=== PATIENT | female | born 1995 | race Caucasian/White ===

== ENCOUNTER → 2017-08-20 06:59 | Outpatient (CLI) | payer OTHER, SELFPAY | PROVIDERS: Visit Provider Obstetrics & Gynecology | DX: Z12.4 Encounter for screening for malignant neoplasm of cervix (principal) ==

== ENCOUNTER → 2019-04-17 13:29 | Outpatient (CLI) | payer OTHER, SELFPAY | PROVIDERS: Visit Provider Obstetrics & Gynecology | DX: Z12.4 Encounter for screening for malignant neoplasm of cervix (principal); Z11.3 Encounter for screening for infections with a predominantly sexual mode of transmission ==

== ENCOUNTER 2020-09-16 16:28 | Emergency (ER) | payer OTHER, SELFPAY ==
[2020-09-16 16:30] VITALS: BP 140/74; PULSE 89; RESP 17; TEMP 36.8; O2SAT 98; BMI 22.4
--- NOTE | 2020-09-16 16:55 | ED.DCSUM_ITS ---
History of Present Illness Chief Complaint: GI Bleed Informant: Patient - Abdominal Pain/Flank Pain Onset: Today Context: Sudden Onset Timing: Intermittent Quality: Cramping Location: - - across lower abd, intermittent x years Current Severity: Mild Maximum Severity: Moderate Worsened by: Nothing Relieved by: Nothing - Nausea/Vomiting/Emesis GI Symptom: Negative for: Nausea, Vomiting - Diarrhea/Melena/Hematochezia GI Symptom: Diarrhea - Chronic, every other day or so, Hematochezia - Off and on chronically, much more than usual today. Negative for: Melena Associated Symptoms: Negative for: Dysuria, Frequency, Hematuria, Urgency Narrative: Patient is a 25-year-old healthy female presenting with intermittent lower abdominal pain, rectal bleeding with loose bowel movements, tenesmus, and she has never had any of this evaluated. She thinks she has had this for over 10 years. She has never had a colonoscopy. She thought that the tenesmus symptoms were just her normal. She has a bowel movement every couple of days, they are irregular but she does not have multiple episodes of diarrhea per day. She denies any melena, nausea, vomiting, fevers. She denies any lightheadedness or acute weakness today or any other systemic symptoms. She does not have a PCP and states she tries to avoid going to the doctor. Past Medical History - Allergies and Home Meds Allergies/Adverse Reactions: Allergies No Known Allergies Allergy (Verified 09/16/20 16:29) Primary Care Physician: Care Physician,No Primary [Primary Care Provider] - Past Medical History: None Smoking Status: Current every day smoker Review of Systems General: Denies: Chills, Fever, Sweats Eyes: Denies: Visual changes - bilaterally, Diplopia ENT: Denies: Rhinorrhea, Sore throat Cardiovascular: Denies: Chest pain, Palpitations Respiratory: Denies: Dyspnea, Cough, Dyspnea on exertion Gastrointestinal: Reports: Abdominal pain, Diarrhea, Hematochezia. Denies: Nausea, Vomiting, Melena Genitourinary: Denies: Dysuria, Hematuria, Frequency Musculoskeletal: Denies: Back pain, Swelling, Extremity Pain Skin: Denies: Rash, Wounds Neurological: Denies: Headache, Weakness, Numbness Physical Exam Vital Signs/Narrative: Vital Signs Temp Pulse Resp BP Pulse Ox 09/16/20 16:30 98.2 F 89 17 140/74 H 98 Inital Vital Signs reviewed: Yes General: Well nourished, Well developed, No Acute Distress Head: Normocephalic, Atraumatic Eyes: Perrl, EOMI ENT: Moist mucous membranes, No rhinorrhea Neck: Supple, Nontender Cardiovascular: Regular rate, Regular rhythm, No murmurs. Negative for: Tachycardia Respiratory: No distress, CTA bilaterally, Chest nontender Abdomen: Soft, Nondistended, Normal bowel sounds, Tender - Mild both lower quadrants and periumbilical area. Negative for: Guarding, Rebound tenderness, Ventral hernia, Umbilical hernia Back: Nontender, Normal Inspection. Negative for: CVA tenderness Extremities: Nontender, No edema. Negative for: Calf Tenderness Skin: Normal color, No rash, No Trauma Neurological: Alert, Oriented x3, Cranial nerves II-XII grossly intact, Normal Strength, Normal Sensation Psychological: Normal affect, Normal Mood Diagnostic/Tx/Re-eval Laboratory Results 09/16/20 09/16/20 09/16/20 16:30 16:30 17:10 WBC 10.1 RBC 4.34 Hgb 12.9 Hct 40.1 MCV 92.4 MCH 29.7 MCHC 32.2 RDW Std Deviation 45.2 H RDW Coeff of Shania 13.2 Plt Count 351 MPV 9.4 Immature Gran % (Auto) 0.400 Neut % (Auto) 56.5 Lymph % (Auto) 30.6 Emmons % (Auto) 8.3 Eos % (Auto) 3.4 Baso % (Auto) 0.8 Absolute Neuts (auto) 5.7 Absolute Lymphs (auto) 3.08 Nucleated RBC % 0 Sodium 139 Potassium 3.7 Chloride 109 H Carbon Dioxide 23.0 Anion Gap 7 BUN 12 Creatinine 0.66 Estim Creat Clear Calc 123.04 Est GFR (MDRD) Af Amer 141 Est GFR (MDRD) Non-Af 116 BUN/Creatinine Ratio 18.1 Glucose 92 Calcium 8.9 Total Bilirubin 0.40 AST 20 ALT 29 Alkaline Phosphatase 93 Total Protein 7.4 Albumin 3.9 Globulin 3.5 Albumin/Globulin Ratio 1.1 Urine Color Yellow Urine Clarity Clear Urine pH 6.5 Ur Specific [place] 1.010 Urine Protein Negative Urine Glucose (UA) Normal Urine Ketones Negative Urine Occult Blood 50 H Urine Nitrite Negative Urine Bilirubin Negative Urine Urobilinogen Normal Ur Leukocyte Esterase Negative Urine RBC 0-5 SEEN Urine WBC 0 SEEN Ur Squamous Epith Cells 0-5 SEEN Urine Bacteria 0 SEEN Urine Mucus 0 SEEN Urine Test Negative - Medical Decision Making Work-up is unremarkable including liver enzymes. Patient was given an oral dicyclomine, which did help her cramping. She said it was not severe to begin with, but she does feel better. Her history is consistent with colitis. I discussed my concerns with her, and the lack of need for imaging at this time since it will likely just show nonspecific signs of colitis. Since her symptoms are chronic and she does not have a leukocytosis, I do not think we need to scan her to look for diverticulitis at this time. I think she needs close outpatient follow-up and a colonoscopy, prior to starting her on any medications to control this so that she gets a clear diagnosis. We discussed Crohn's disease being in the differential diagnosis as well as other functional GI diagnoses, but ulcerative colitis would be the most likely etiology. We discussed reasons to return, and she will follow-up with surgery for the possibility of endoscopy as well as the next doctor on the unassigned list, Dr. Sagastume. ED Disposition - Plan for ED Patient: Disposition: Home or Assisted Living Diagnosis: Colitis Instructions: ED Ulcerative Colitis Prescriptions: Dicyclomine HCl 20 mg PO Q4H PRN #20 tab PRN Reason: abdominal cramping Transmission Status: Pending to [facility] Referrals: Nain Sagastume MD [NON-STAFF] - As soon as possible Rayne Kelley MD [STAFF PHYSICIAN] - As soon as possible
[2020-09-16 17:15] LABS: Absolute Lymphocyte Count 3.08 X10^3/uL (0.83-4.51); Absolute Neutrophil Count 5.7 X10^3/uL (2.0-7.7); Basophil# 0.08 X10^3/uL; Basophil% 0.8 % (0-1); Eosinophil# 0.34 X10^3/uL; Eosinophils% 3.4 % (0-5); Hematocrit 40.1 % (37-47); Hemoglobin 12.9 g/dL (12.0-15.0); Lymphocyte # 3.08 X10^3/ul (4.0); Lymphocyte % 30.6 % (19-41); Mean Corp Hgb Conc 32.2 g/dL (32-36); Mean Corpuscular Hgb 29.7 pg (27.0-32.0); Mean Corpuscular Volume 92.4 fL (81-99); Mean Platelet Vol. 9.4 fl (6.2-12.0); Monocyte# 0.84 X10^3/uL; Monocyte% 8.3 % (0-10); NRBC Flagged by Analyzer 0 % (0-5); Neutrophil # 5.69 X10^3/uL (2.7-7.7); Neutrophil % 56.5 % (47-70); Platelet Count 351 K/mm3 (150-450); RBC Distribution Width CV 13.2 % (11.6-14.6); RBC Distribution Width SD 45.2 fl (35.1-43.9); Red Blood Count 4.34 M/mm3 (4.2-5.4); White Blood Count 10.1 K/mm3 (4.4-11.0)
[2020-09-16 17:15] LABS: Bacteria 0 SEEN /hpf (None Seen); Mucous, Urine 0 SEEN /hpf (<or=2+); White Blood Cells 0 SEEN /hpf (0-5)
[2020-09-16 17:20] LABS: Color, Urine Yellow (Yellow); Glucose, Dipstick Normal (Normal); Ketone-Dipstick Negative (Negative); Leukocyte Esterase-Dipstick Negative /ul (Negative); Nitrite-Dipstick Negative (Negative); Occult Blood-Urine 50 /ul (Negative); Protein-Dipstick Negative (Negative); Urine Bilirubin Dipstick Negative (Negative); Urine Clarity Clear (Clear); Urine Urobilinogen Normal (Normal); Urine pH 6.5 (5.0 - 8.0)
[2020-09-16] MEDS: Dicyclomine 10 MG Capsule 20 MG PO (17:20)
[2020-09-16 17:21] VITALS: BP 101/58; BP 108/64; BP 114/69; PULSE 77; PULSE 85
[2020-09-16 17:27] LABS: Red Blood Cells-Urine 0-5 SEEN /hpf (0-5); Squamous Epithelial Cells - UA 0-5 SEEN /hpf (5-10)
[2020-09-16 17:28] LABS: ALB/GLOB Ratio 1.1 RATIO (0.9-2.4); AST(SGOT) 20 U/L (15-37); Alanine Aminotransfer ALT/SGPT 29 U/L (13-56); Albumin, Serum 3.9 g/dL (3.2-5.0); Alkaline Phosphatase 93 U/L (45-117); Anion Gap 7 (5-15); BUN 12 mg/dL (7-18); BUN/Creat Ratio 18.1 RATIO (10-20); Calcium,Total 8.9 mg/dL (8.5-10.1); Chloride 109 mmol/L (98-107); Creatinine, Serum 0.66 mg/dL (0.55-1.02); EST Glomerular Filtration Rate 116 mL/min (>60); Est Glom Filt Rate - Afr Amer 141 mL/min (>60); Estimated Creatinine Clearance 123.04 ml/min; Globulin 3.5 g/dL (2.2-4.2); Glucose 92 mg/dL (74-106); Potassium 3.7 mmol/L (3.5-5.1); Protein, Total 7.4 g/dL (6.4-8.2); Sodium Level 139 mmol/L (136-145)
[2020-09-16 17:28] LABS: Internal QC Validated? YES +Cl - CLEAR BKGD; Pregnancy, Urine Negative Negative
[2020-09-16 18:30] VITALS: BP 113/65; PULSE 57; RESP 16; O2SAT 98
[2020-09-16 18:59] VITALS: RESP 18
== END 2020-09-16 18:59 | disposition home or self-care (01) ==
PROVIDERS: Emergency Provider Emergency Medicine
DX: K52.9 Noninfective gastroenteritis and colitis, unspecified (principal); F17.200 Nicotine dependence, unspecified, uncomplicated
CPT/HCPCS: 80053; 81001; 81025; 85025; 99284; A4216

== ENCOUNTER 2021-02-18 08:13 | Emergency (ER) | payer OTHER, SELFPAY ==
[2021-02-18 08:13] VITALS: BP 141/91; PULSE 108; RESP 16; TEMP 36.4; O2SAT 97; BMI 22.1
--- NOTE | 2021-02-18 08:22 | RAD_ITS ---
EXAM DESCRIPTION: PORTABLE AP CHEST CLINICAL HISTORY: 25 years Female, COUGH COUGH COMPARISON: None FINDINGS: The thorax is intact. The heart and mediastinum appear to be within normal limits. The lungs appear to be well areated without evidence of pneumonic consolidation or pleural effusion. RAD/Chest 1 View (Portable) IMPRESSION: Normal portable chest. Electronically Signed: Osmar Katz DO at 9:13 EDT Tel , Service support ,
[2021-02-18 08:26] VITALS: O2SAT 97
--- NOTE | 2021-02-18 09:07 | EX.ED.VIS.UR ---
HPI HPI - URI History of Present Illness Chief Complaint: Shortness of Breath Informant: patient Onset/Context/Timing Onset: Yesterday Context: Gradual Onset Timing: Continuous Quality: cough, wheezing Location: chest Current Severity: Moderate Maximum Severity: Moderate Worsened by: - (coughing) Relieved by: - (nothing) Associated Symptoms Associated Symptoms: Positive for Nasal Congestion, Chest Pain (tightness) and Productive Cough (green sputum); Negative for Headache, Nausea, Vomiting, Diarrhea and Hemoptysis Narrative Narrative: Productive cough, chest tightness, wheezing since yesterday. No history of asthma that she knows of. No leg edema. No syncope, palpitations. No leg pain or swelling recently or history of DVT or PE. No fevers or chills. No known contact with Covid positive patient. ROS ROS ED Constitutional Constitutional ED: Denies chills or fever(s) Eyes Eyes: Denies change in vision or diplopia ENT ENT ED: Reports nasal congestion and rhinorrhea; Denies sore throat Cardiovascular Cardiovascular: Reports as per HPI and chest pain; Denies palpitations Respiratory/Chest Respiratory/Chest: Reports cough, dyspnea, sputum and wheezing Gastrointestinal Gastrointestinal: Denies abdominal pain, diarrhea, nausea or vomiting Genitourinary Genitourinary ED: Denies dysuria or hematuria Musculoskeletal Musculoskeletal: Denies back pain or neck pain Integumentary Denies abscess or rash Neurologic Neurologic: Denies headache(s), paresthesias or weakness Psychiatric Psychiatric: Denies anxiety or suicidal thoughts PFSH PFSH no medical history Home Medications etonogestrel-ethinyl estradiol 1 ea VG 09/16/20 [History Last Taken Unknown] albuterol sulfate [Ventolin HFA] 1 - 2 puff INHALATION Q4H PRN PRN #1 inhaler 02/18/21 [Rx Last Taken Unknown] benzonatate 200 mg PO TID PRN PRN #20 capsule 02/18/21 [Rx Last Taken Unknown] Allergy/AdvReac Type Severity Reaction Status Date / Time No Known Allergies Allergy Verified 02/18/21 08:13 Social History Smoking Status: Current every day smoker tobacco type: cigarettes EXAM Physical Exam Const Vital Signs: 02/18/21 08:13 02/18/21 08:26 02/18/21 09:20 Temperature 97.6 F L Temperature Source Temporal Pulse Rate 108 H 89 Respiratory Rate 16 20 H Respiratory Effort Normal Non-Labored Respiratory Depth Normal Respiratory Pattern Normal Normal Blood Pressure 141/91 H Blood Pressure Mean 107 Pulse Ox 97 Oxygen Delivery Method Room Air Room Air Positive well nourished and well developed General Appearance ED: well developed and NAD HEENT Reports moist mucous membranes normocephalic and atraumatic Throat: posterior oropharynx normal Eyes PERRL and EOMs intact bilaterally Neck full ROM and supple Resp normal respiratory effort Auscultation: wheezes expiratory wheezes and throughout Cardio regular rate, regular rhythm and no murmurs Back/Spine no CVA tenderness General Back: other FROM Extremity normal to inspection General Extremety ED: Negative for edema, pulses abnormal or tenderness General Extremity: Negative for edema or pulses abnormal Neuro oriented x3, CN's II-XII intact bilaterally and no sensory deficits noted Sensorium / Orientation: awake and alert Motor Exam: strength 5/5 throughout Skin no rashes or lesions noted and no wounds Lesions: no lesions Rashes: no rashes MDM MDM MDM Narrative Medical decision making narrative: Chest x-ray and Covid rapid are negative/normal. Patient is wheezing diffusely, likely bronchitis with wheezing in context. Her pulse ox is normal and she is breathing well and speaking in full sentences. Given nebulizer treatments as well as a prescription for an MDI. She was improved prior to discharge. No prednisone or antibiotics indicated at this time. Lab Data Attestation: I reviewed the patient's lab results. Radiography Diagnostic Testing: Radiology Impression Chest X-Ray 02/18/21 08:22 IMPRESSION: Normal portable chest. Electronically Signed: Osmar Katz DO at 9:13 EDT Tel , Service support , On my interpretation 1 view chest x-ray normal. Discharge Plan Triage Chief Complaint: Shortness of Breath ED Provider: Elton Prajapati Dx/Rx/DC Orders Clinical Impression: Acute wheezy bronchitis Instructions: ED Bronchitis with Wheezing (Adult) Prescriptions: New benzonatate [benzonatate] 100 MG capsule 200 mg PO TID PRN PRN (Reason: Cough) Qty: 20 RF: 0 albuterol sulfate [Ventolin HFA] 1 INHALER inhaler 1 - 2 puff inhalation Q4H PRN PRN (Reason: Wheezing) Qty: 1 RF: 0 No Action etonogestrel-ethinyl estradiol 1 EACH ring 1 ea VG RF: 0 Stand Alone Forms: ED Work / School Excuse Primary Care Provider: Care Physician,No Primary Referrals: Angelina Ibarra [NON-STAFF] - 10-14 Days if not better Care Physician,No Primary [Primary Care Provider] - Disposition Disposition: Home, Self Care
[2021-02-18 09:20] VITALS: PULSE 89; RESP 20
[2021-02-18] MEDS: Ipratropium/Albuterol Sulfate 3 ML AMPUL.NEB INHALATION (09:20)
[2021-02-18] MEDS: Albuterol 2.5 MG/3 ML VIAL.NEB. INHALATION (09:20)
== END 2021-02-18 11:02 | disposition home or self-care (01) ==
PROVIDERS: Emergency Provider Emergency Medicine
DX: J20.9 Acute bronchitis, unspecified (principal); F17.210 Nicotine dependence, cigarettes, uncomplicated
CPT/HCPCS: 71045; 87426; 94640; 99282

== ENCOUNTER → 2021-06-08 15:23 | Outpatient (CLI) | payer OTHER, SELFPAY ==
[2021-06-13 00:06] LABS: Chlamydia By Nucleic Acid AMP Negative (Negative)
[2021-06-13 13:44] LABS: Gonococcus By Nucleic Acid AMP Negative (Negative)
== END ==
PROVIDERS: Visit Provider Obstetrics & Gynecology
DX: Z11.3 Encounter for screening for infections with a predominantly sexual mode of transmission (principal)
CPT/HCPCS: 87491; 87591

== ENCOUNTER 2022-06-14 11:20 | Outpatient (CLI) | payer OTHER, SELFPAY ==
[2022-06-16 04:07] LABS: Chlamydia By Nucleic Acid AMP Negative (Negative)
[2022-06-16 10:36] LABS: Gonococcus By Nucleic Acid AMP Negative (Negative)
[2022-06-20 20:59] LABS: HPV APTIMA, High Risk Negative (Negative)
== END 2022-06-14 23:59 | disposition home or self-care (01) ==
LOC: LABSPEC 11:22
PROVIDERS: Visit Provider Student in an Organized Health Care Education/Training Program
DX: Z11.3 Encounter for screening for infections with a predominantly sexual mode of transmission (principal); Z12.4 Encounter for screening for malignant neoplasm of cervix
CPT/HCPCS: 87491; 87591; 87624; 88175; G0145

== ENCOUNTER 2022-11-03 10:11 | Outpatient (CLI) | payer OTHER, SELFPAY ==
[2022-11-03 11:09] LABS: Erythrocyte Sedimentation Rate 2 mm/hr (0-30)
[2022-11-03 11:13] LABS: CRP 6.22 mg/L (0.0-3.0); LDH 208 U/L (84-246)
[2022-11-06 15:07] LABS: Endomysial Antibody IgA Negative (Negative); Immunoglobulin A 105 mg/dL (87-352); t-Transglutaminase IgA <2 U/mL (0-3)
[2022-11-07 17:08] LABS: Albumin 3.7 g/dL (2.9-4.4); Alpha-1-Globulins 0.2 g/dL (0.0-0.4); Alpha-2-Globulins 0.7 g/dL (0.4-1.0); Cytoplasmic Ab (C-ANCA) <1:20 titer (Neg:<1:20); Gamma Globulin 0.7 g/dL (0.4-1.8); Immunoglobulin A 110 mg/dL (87-352); Immunoglobulin E 229 IU/mL (6-495); Immunoglobulin G 806 mg/dL (586-1602); Immunoglobulin M 73 mg/dL (26-217); PROEL- TOTAL PROTEIN 6.5 g/dL (6.0-8.5); Perinuclear Ab (P-ANCA) <1:20 titer (Neg:<1:20)
[2022-11-08 09:09] LABS: Anti-Centromere B Ab <0.2 AI (0.0-0.9); Anti-Chromatin <0.2 AI (0.0-0.9); Anti-Jo <0.2 AI (0.0-0.9); Anti-Scleroderma-70 AB <0.2 AI (0.0-0.9); Anti-dsDNA Ab 3 IU/mL (0-9); Beef <0.10 kU/L (Class 0); Chocolate <0.10 kU/L (Class 0); Corn <0.10 kU/L (Class 0); Egg, Whole <0.10 kU/L (Class 0); Milk (Cow) <0.10 kU/L (Class 0); Peanut <0.10 kU/L (Class 0); Pork <0.10 kU/L (Class 0); RNP Ab <0.2 AI (0.0-0.9); SJOGREN'S Anti-SS-A test < 0.2 AI (0.0-0.9); SJOGREN'S Anti-SS-B test < 0.2 AI (0.0-0.9); Smith Ab <0.2 AI (0.0-0.9); Soybean <0.10 kU/L (Class 0); Wheat <0.10 kU/L (Class 0)
== END 2022-11-03 23:59 | disposition home or self-care (01) ==
LOC: LAB 10:13
PROVIDERS: PCP Nurse Practitioner Family; Referring Provider Internal Medicine Gastroenterology; Visit Provider Internal Medicine Gastroenterology
DX: K92.1 Melena (principal)
CPT/HCPCS: 36415; 82784; 82785; 83516; 83615; 84165; 85652; 86003; 86005; 86140; 86225; 86235; 86255; 86256; 86334

== ENCOUNTER 2022-11-15 13:21 | Outpatient (CLI) | payer OTHER, SELFPAY ==
[2022-11-21 15:08] LABS: Calprotectin, Stool 34 ug/g (0-120); Fats, Neutral Normal (.); Fats, Total Normal (.)
[2022-11-23 15:09] LABS: Pancreatic Elastase, Fecal 197 (>200)
== END 2022-11-15 23:59 | disposition home or self-care (01) ==
LOC: LAB 13:22
PROVIDERS: PCP Nurse Practitioner Family; Referring Provider Internal Medicine Gastroenterology; Visit Provider Internal Medicine Gastroenterology
DX: K58.9 Irritable bowel syndrome, unspecified (principal); K92.1 Melena
CPT/HCPCS: 82274; 82653; 82705; 83630; 83993; 87493; 87506

== ENCOUNTER 2023-01-11 06:19 | Day surgery (SDC) | payer OTHER, SELFPAY ==
[2023-01-11 06:41] LABS: Internal QC Validated? YES +Cl - CLEAR BKGD; Pregnancy, Urine Negative Negative
[2023-01-11] MEDS: Lactated Ringers 1,000 ML 15 ML IV (06:48)
[2023-01-11 06:49] VITALS: BP 123/86; PULSE 83; RESP 18; TEMP 36.6; O2SAT 98; BMI 24.3
--- NOTE | 2023-01-11 07:28 | HP.PCM_ITS ---
History and Physical Date of Admission: 01/11/23 27 F who presents to the office today for PCP OV 1 with Constipation was a difficulty as a child; but for the last several years she has had urgent loose stools with blood and mucus with urgency related incontinence. ? Biochemical ferritin, iron, TSH, CMP, LFT, CBC ? TIBC H470, transferrin sat L12 *BGI established 4.. she has been having difficulty with postprandial urgent loose stools with blood and abdominal pain for the last several years. Reports LLQ US at OSH which was reported as normal. Additional difficulty with acid reflux/heartburn; started on iron replacement, dicyclomine and PPI, these have been helpful with urgency and reflux. 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 ROS Const Constitutional: No anorexia, fatigue, fever(s), weight change or sleep problems Eyes Eyes: No change in vision ENT ENT: No abnormal hearing, difficulty swallowing, mouth lesions, tongue swelling or throat swelling Resp Respiratory: No cough or shortness of breath Cardio Cardiology: No chest pain at rest, chest pain with exertion, shortness of breath or dyspnea on exertion Gastro GI: No difficulty swallowing Genitourinary-Female: No difficulty urinating or burning urination Musc Musculoskeletal: No joint pain, joint swelling, muscle weakness or decreased muscle mass Skin Skin: No hair loss in leg, yellowing of the eye, itchy eyes, rash, skin ulcer or skin swelling Neuro Neurology: No abnormal hearing, abnormal movements, confusion, unsteady gait/balance or memory loss Psych Psychiatric: No anxiety, No confusion and No memory loss Endo Endocrine: No fatigue or weight change Aller/Imm Allergy/Immunologic: No itchy eyes, throat swelling or tongue swelling Nima/Lymp Hematologic/Lymphatic: No easy bleeding, easy bruising or enlarged lymph nodes Exam Const General: cooperative and comfortable Nutritional Appearance: average body habitus and well nourished [facility] Head: normal to inspection Ears: hearing grossly normal bilaterally Nose: external nose normal Face and sinus: normal facial exam Mouth: oral mucosae normal Throat: posterior oropharynx normal Eyes General: appearance normal, both eyes and all related structures Neck Neck: normal visual inspection Chest Chest palpation & inspection: normal inspection of the chest and normal palpation of entire chest wall Resp Effort & Inspection: normal respiratory effort Auscultation: Bilateral: Clear to Auscultation Cardio Palpation: normal PMI Rate: regular rate Rhythm: regular rhythm GI Inspection: normal to inspection Auscultation: normal bowel sounds Percussion: normal to percussion Palpation: no hepatosplenomegaly Skin General: no rashes or lesions noted Neuro General: patient alert Extrem General: normal to inspection Psych Affect: normal affect Quality Reporting Tobacco Screening ([facility]) Smoking Status: Current every day smoker Assessment and Plan Assessment and Plan (1) Hematochezia: Status: Chronic Plan: The differential diagnosis for her symptoms at this time does include inflammatory bowel disease, IBS with diarrhea, small bacterial overgrowth, celiac disease, anal fissure secondary to multiple bowel movements, less likely pancreatic insufficiency. She will undergo biochemical testing along with stool testing. She will undergo food allergy testing. She will also undergo an EGD and colonoscopy for evaluation of upper or lower GI tract biopsies for diseases such as eosinophilic gastroenteritis and microscopic colitis. Orders: Orders CRP Today K92.1 - Melena Erythrocyte Sed Rate Today K92.1 - Melena ANCA Today K92.1 - Melena Celiac Disease Profile Today K92.1 - Melena LDH Today K92.1 - Melena Allergen, Rast Food Profile Today K92.1 - Melena AIDA Comprehensive Panel Today K92.1 - Melena Calprotectin, Stool Today K92.1 - Melena Stool Lactoferrin/WBC Today K58.9 - Irritable bowel syndrome without diarrhea, K92.1 - Melena Immunoglobulin A Today K92.1 - Melena Immunoglobulin E Today K92.1 - Melena SHALINI + Protein Elect, Serum Today K92.1 - Melena Immunoglobulin G Today K92.1 - Melena Immunoglobulin M Today K92.1 - Melena Pancreatic Elastase, Fecal Today K92.1 - Melena Fecal Fat, Qualitative Today K92.1 - Melena OVA+PARA w/Giardia EIA [id number] Today K92.1 - Melena CDIFF (PCR) Today K92.1 - Melena ENTERIC PATHOGEN PANEL STOOL Today K58.9 - Irritable bowel syndrome without diarrhea, K92.1 - Melena Stool Occult Blood iFOB Today K92.1 - Melena I have examined the patient and the H&P has been reviewed. There are no clinical changes since date of exam.
--- NOTE | 2023-01-11 07:30 | IMM_PTH ---
PATIENT: RONAL MCLAIN LOC: EN U#:[id number] AGE/SX: 27/F ROOM: RE01/11/[address]: Dr. Quique Reynolds DO : 1995 BED: DIS: 01/11/2023 SPEC #: [id number] RECD: 01/11/23 12:49 STATUS: LATONIA REErin #: [id number] LAILA: 01/11/23 07:[address]: Quique Reynolds DEPT: IMMUNOHISTOCHEMISTRY RECD BY: Michelle Hernandez ENTERED: 01/11/23 12:50 SP TYPE: IMMUNO OTHR DR: Temi Rice, PIO Tissues: B - Stomach, NOS Procedures: H Pylori (initial) PHYSICIAN & INSTITUTION [place] [id number] SPECIMEN INFORMATION: Tissue Source: B - Antrum biopsy Clinical Info: Hematochezia Specimen Number: [id number] CPT code: 62836 METHODOLOGY: Deparaffinized sections of prefer/formalin-fixed tissue or PAP/DQ stained slides are incubated with monoclonal/polyclonal antibodies/oligonucleotide probes. Localization is made via biotin free immunoperoxidase method. Appropriate controls are performed and reacted as expected. Results on target cell population are indicated in the following table: RESULTS: ANTIBODY / CLONE RESULT Block B H Pylori (polyclonal) negative These tests were developed and their performance characteristics determined by [facility]. They may not have been cleared or approved by the U.S. Food and Drug Administration. The FDA has determined that such clearance or approval is not necessary. The above immunohistochemical/dualISH markers are ordered and reviewed by the Pathologist. INTERPRETATION: B. Antrum, biopsy: Negative for Helicobacter pylori organisms. ALESSIA:josh 01/12/2023
--- NOTE | 2023-01-11 07:30 | EGD_PTH ---
PATIENT: RONAL MCLAIN LOC: EN U#:[id number] AGE/SX: 27/F ROOM: RE01/11/[address]: Dr. Quique Reynolds DO : 1995 BED: DIS: 01/11/2023 SPEC #: [id number] RECD: 01/11/23 12:09 STATUS: LATONIA DELGADOErin #: [id number] LAILA: 01/11/23 07:[address]: Quique Reynolds DEPT: SURGICAL PATHOLOGY RECD BY: Sweta Tee ENTERED: 01/11/23 12:36 SP TYPE: EGD BIOPSY OT DR: Temi Rice, SKEIN BLEACHERNgoziC Tissues: A - Duodenum, NOS B - Gastric mucous membrane C - Gastric mucous membrane D - Esophagus, NOS E - Ileum, NOS F - COLON BIOPSY Procedures: Special Stain Group II Surgery Specimen Level IV Alcian Blue/PAS (control) HEADER OPERATION: Colonoscopy, [place] [place] biopsy PRE-OP DIAGNOSIS: Hematochezia TISSUE SUBMITTED: A - Duodenum biopsy, B - Antrum for H. pylori and path, C - Gastric body biopsy, D - Distal esophagus, E - Terminal ileum biopsy, F - Sigmoid colon biopsy MICROSCOPIC DIAGNOSIS A. Duodenum, biopsy: Fragments of duodenal mucosa, no pathologic diagnosis. B. Antrum, biopsy: Mild gastritis. See microscopic description and comment. C. Gastric body, biopsy: Mild gastritis. See microscopic description. D. Distal esophagus, biopsy: Fragments of gastroesophageal mucosa with chronic inflammation and changes consistent with gastroesophageal reflux disease. Intestinal metaplasia (goblet cell metaplasia) not identified. See comment. E. Terminal ileum, biopsy: Fragments of small intestinal mucosa, no pathologic diagnosis. F. Sigmoid colon, biopsy: Fragments of colonic mucosa, no pathologic diagnosis. SJ:josh 01/12/2023 COMMENT B. The results of immunohistochemistry for Helicobacter pylori will be reported separately ([id number]). D. Alcian blue/PAS stain with matched control is used in the evaluation of the specimen. MICROSCOPIC DESCRIPTION Slides are reviewed. B & C. The specimen shows fragments of gastric mucosa with chronic inflammatory cell infiltrates in the lamina propria consisting of lymphocytes and plasma cells, consistent with mild chronic gastritis. GROSS DESCRIPTION A - Received in fixative is one container labeled with the patient's name and designated duodenum biopsy. The specimen consists of multiple irregular fragments of light hidalgo soft tissue that in aggregate measure 1.4 x 0.5 x 0.1 cm. The specimen is totally submitted in one cassette. B - Received in fixative is one container labeled with the patient's name and designated antrum biopsy. The specimen consists of multiple irregular fragments of light hidalgo soft tissue that in aggregate measure 1.0 x 0.3 x 0.1 cm. The specimen is totally submitted in one cassette. C - Received in fixative is one container labeled with the patient's name and designated gastric body biopsy. The specimen consists of multiple irregular fragments of light hidalgo soft tissue that in aggregate measure 1.0 x 0.3 x 0.1 cm. The specimen is totally submitted in one cassette. D - Received in fixative is one container labeled with the patient's name and designated distal esophagus biopsy. The specimen consists of multiple irregular fragments of light hidalgo soft tissue that in aggregate measure 0.8 x 0.2 x 0.1 cm. The specimen is totally submitted in one cassette. E - Received in fixative is one container labeled with the patient's name and designated terminal ileum biopsy. The specimen consists of multiple irregular fragments of light hidalgo soft tissue that in aggregate measure 1.5 x 0.3 x 0.1 cm. The specimen is totally submitted in one cassette. F - Received in fixative is one container labeled with the patient's name and designated sigmoid colon biopsy. The specimen consists of two irregular fragments of light hidalgo soft tissue that in aggregate measure 0.8 x 0.4 x 0.1 cm. The specimen is totally submitted in one cassette. / SJ:rg 01/11/2023 TC:3 CPT: 53798 x6, [id number]
[2023-01-11 08:00] VITALS: BP 109/76; BP 123/86; PULSE 84; RESP 18; TEMP 36.8; O2SAT 97
--- NOTE | 2023-01-11 08:04 | OP.EGD_ITS ---
Patient Name: Key Zelaya Procedure Date: 01/11/2023 7:25 AM Date of : 1995 Age: 27 Procedure: Upper GI endoscopy Indications: Epigastric abdominal pain, Functional Dyspepsia Providers: Quique Reynolds DO Medicines: Monitored Anesthesia Care Patient Profile: This is a 27 year old female. Refer to note in patient chart for documentation of history and physical. Patient has symptoms of chronic abdominal cramping and chronic epigastric abdominal pain. Complications: No immediate complications. Procedure: Pre-Anesthesia Assessment: - Prior to the procedure, a History and Physical was performed, and patient medications and allergies were reviewed. The patient is competent. The risks and benefits of the procedure and the sedation options and risks were discussed with the patient. All questions were answered and informed consent was obtained. Patient identification and proposed procedure were verified by the physician in the pre-procedure area. Mental Status Examination: alert and oriented. Airway Examination: normal oropharyngeal airway and neck mobility. Respiratory Examination: clear to auscultation. CV Examination: normal. Prophylactic Antibiotics: The patient does not require prophylactic antibiotics. Prior Anticoagulants: The patient has taken no previous anticoagulant or antiplatelet agents. ASA Grade Assessment: II - A patient with mild systemic disease. After reviewing the risks and benefits, the patient was deemed in satisfactory condition to undergo the procedure. The anesthesia plan was to use monitored anesthesia care (MAC). Immediately prior to administration of medications, the patient was re-assessed for adequacy to receive sedatives. The heart rate, respiratory rate, oxygen saturations, blood pressure, adequacy of pulmonary ventilation, and response to care were monitored throughout the procedure. The physical status of the patient was re-assessed after the procedure. After obtaining informed consent, the endoscope was passed under direct vision. Throughout the procedure, the patient's blood pressure, pulse, and oxygen saturations were monitored continuously. The was introduced through the mouth, and advanced to the second part of duodenum. The upper GI endoscopy was accomplished without difficulty. The patient tolerated the procedure well. Scope In: 7:34:36 AM Scope Out: 7:40:17 AM Total Procedure Duration Time 0 hours 5 minutes 41 seconds Findings: LA Grade A (one or more mucosal breaks less than 5 mm, not extending between tops of 2 mucosal folds) esophagitis with no bleeding was found 36 to 38 cm from the incisors. Biopsies were taken with a cold forceps for histology. Verification of patient identification for the specimen was done. Estimated blood loss was minimal. Patchy mildly erythematous mucosa without bleeding was found in the gastric body and in the gastric antrum. Biopsies were taken with a cold forceps for histology. Verification of patient identification for the specimen was done. Estimated blood loss was minimal. Patchy mildly erythematous mucosa without active bleeding and with no stigmata of bleeding was found in the duodenal bulb, in the first portion of the duodenum and in the second portion of the duodenum. Biopsies were taken with a cold forceps for histology. Verification of patient identification for the specimen was done. Estimated blood loss was minimal. Impression: - LA Grade A reflux esophagitis. Biopsied. - Erythematous mucosa in the gastric body and antrum. Biopsied. - Erythematous duodenopathy. Biopsied. Recommendation: - Discharge patient to home. - Resume previous diet. - Continue present medications. - Await pathology results. Procedure Code(s): --- Professional --- 37123, Esophagogastroduodenoscopy, flexible, transoral; with biopsy, single or multiple CPT copyright 2017 [employer]. All rights reserved. The codes documented in this report are preliminary and upon plastic surgery technician review may be revised to meet current compliance requirements. Quique Reynolds DO 01/11/2023 8:04:17 AM This report has been signed electronically. Number of Addenda: 0 Note Initiated On: 01/11/2023 7:25 AM
[2023-01-11 08:05] VITALS: BP 100/73; BP 123/86; PULSE 71; RESP 16; O2SAT 99
--- NOTE | 2023-01-11 08:05 | OP.CCLET_ITS ---
01/11/2023 Gracy Landeros Re : Upper GI endoscopy procedure for Key Davisr Dwayne This procedure was performed on December. My impressions and recommendations are as follows: Impressions : - LA Grade A reflux esophagitis. Biopsied. - Erythematous mucosa in the gastric body and antrum. Biopsied. - Erythematous duodenopathy. Biopsied. Recommendations : - Discharge patient to home. - Resume previous diet. - Continue present medications. - Await pathology results. My findings are described in the full procedure note, which is enclosed. If I can be of further assistance, please feel free to contact me at . Sincerely, Quique Reynolds, 01/11/2023 8:04:17 AM This report has been signed electronically.
--- NOTE | 2023-01-11 08:07 | OP.COLON_ITS ---
Patient Name: Key Zelaya Procedure Date: 01/11/2023 7:40 AM Date of : 1995 Age: 27 Procedure: Colonoscopy Indications: Generalized abdominal pain, Clinically significant diarrhea of unexplained origin, Hematochezia Providers: Quique Reynolds DO Medicines: Monitored Anesthesia Care Patient Profile: This is a 27 year old female. Refer to note in patient chart for documentation of history and physical. Patient has symptoms of chronic abdominal cramping and chronic epigastric abdominal pain. Last Colonoscopy: none. The patient's first colonoscopy is today. Complications: No immediate complications. Procedure: Pre-Anesthesia Assessment: - Prior to the procedure, a History and Physical was performed, and patient medications and allergies were reviewed. The patient is competent. The risks and benefits of the procedure and the sedation options and risks were discussed with the patient. All questions were answered and informed consent was obtained. Patient identification and proposed procedure were verified by the physician in the pre-procedure area. Mental Status Examination: alert and oriented. Airway Examination: normal oropharyngeal airway and neck mobility. Respiratory Examination: clear to auscultation. CV Examination: normal. Prophylactic Antibiotics: The patient does not require prophylactic antibiotics. Prior Anticoagulants: The patient has taken no previous anticoagulant or antiplatelet agents. ASA Grade Assessment: II - A patient with mild systemic disease. After reviewing the risks and benefits, the patient was deemed in satisfactory condition to undergo the procedure. The anesthesia plan was to use monitored anesthesia care (MAC). Immediately prior to administration of medications, the patient was re-assessed for adequacy to receive sedatives. The heart rate, respiratory rate, oxygen saturations, blood pressure, adequacy of pulmonary ventilation, and response to care were monitored throughout the procedure. The physical status of the patient was re-assessed after the procedure. After I obtained informed consent, the scope was passed under direct vision. Throughout the procedure, the patient's blood pressure, pulse, and oxygen saturations were monitored continuously. The was introduced through the anus and advanced to the terminal ileum. The colonoscopy was performed without difficulty. The patient tolerated the procedure well. The quality of the bowel preparation was good. Scope In: 7:41:58 AM Scope Withdrawal Time 0 hours 9 minutes 3 seconds Scope Out: 7:54:17 AM Total Procedure Duration Time 0 hours 12 minutes 19 seconds Findings: The perianal and digital rectal examinations were normal. A patchy area of mildly erythematous mucosa was found in the sigmoid colon. Biopsies were taken with a cold forceps for histology. Verification of patient identification for the specimen was done. Estimated blood loss was minimal. A patchy area of the terminal ileum was congested. Biopsies were taken with a cold forceps for histology. Verification of patient identification for the specimen was done. Estimated blood loss was minimal. Impression: - Erythematous mucosa in the sigmoid colon. Biopsied. - Congested mucosa in the terminal ileum. Biopsied. Recommendation: - Discharge patient to home. - Resume previous diet. - Continue present medications. - Await pathology results. - Repeat colonoscopy for surveillance based on pathology results. Procedure Code(s): --- Professional --- 49676, Colonoscopy, flexible; with biopsy, single or multiple CPT copyright 2017 [employer]. All rights reserved. The codes documented in this report are preliminary and upon remote coders review may be revised to meet current compliance requirements. Quique Reynolds DO 01/11/2023 8:06:41 AM This report has been signed electronically. Number of Addenda: 0 Note Initiated On: 01/11/2023 7:40 AM
--- NOTE | 2023-01-11 08:07 | OP.CCLET_ITS ---
01/11/2023 Gracy Landeros Re : Colonoscopy procedure for Key Zelaya Dear Dwayne This procedure was performed on December. My impressions and recommendations are as follows: Impressions : - Erythematous mucosa in the sigmoid colon. Biopsied. - Congested mucosa in the terminal ileum. Biopsied. Recommendations : - Discharge patient to home. - Resume previous diet. - Continue present medications. - Await pathology results. - Repeat colonoscopy for surveillance based on pathology results. My findings are described in the full procedure note, which is enclosed. If I can be of further assistance, please feel free to contact me at . Sincerely, Quique Reynolds DO 01/11/2023 8:06:41 AM This report has been signed electronically.
[2023-01-11 08:10] VITALS: BP 123/86; BP 97/70; PULSE 70; RESP 16; O2SAT 97
[2023-01-11 08:18] VITALS: BP 123/86; BP 96/59; PULSE 61; RESP 16; TEMP 37.1; O2SAT 98
[2023-01-11 08:37] VITALS: BP 123/86
== END 2023-01-11 08:48 | disposition home or self-care (01) ==
LOC: EN 06:22 → AC 06:23
PROVIDERS: Anesthesiology; PCP Nurse Practitioner Family; Referring Provider Nurse Practitioner Family; Visit Provider Internal Medicine Gastroenterology
PROC: 0DJD8ZZ Inspection of Lower Intestinal Tract, Via Natural or Artificial Opening Endoscopic (ICD-10-PCS; CPT 45378; principal; 2023-01-11 07:25)
DX: K21.00 Gastro-esophageal reflux disease with esophagitis, without bleeding (principal); K92.1 Melena; F17.200 Nicotine dependence, unspecified, uncomplicated; R10.84 Generalized abdominal pain; K58.0 Irritable bowel syndrome with diarrhea
CPT/HCPCS: 45380; 43239; 81025; 88305; 88313; 88342; J7120; J2405

== ENCOUNTER → 2023-02-26 | Outpatient (CLI) | payer OTHER, SELFPAY ==
[2023-02-26 14:13] LABS: hCG Titer Quant., Serum 22488 mIU/mL (1-3)
== END | disposition home or self-care (01) ==
LOC: LAB 12:43
PROVIDERS: PCP Nurse Practitioner Family; Referring Provider Obstetrics & Gynecology; Visit Provider Obstetrics & Gynecology
DX: N92.0 Excessive and frequent menstruation with regular cycle (principal)
CPT/HCPCS: 36415; 84702; 86850; 86900; 86901

== ENCOUNTER → 2023-02-28 | Outpatient (CLI) | payer OTHER, SELFPAY ==
[2023-02-28 13:56] LABS: hCG Titer Quant., Serum 32539 mIU/mL (1-3)
--- NOTE | 2023-02-28 15:57 | US_ITS ---
INDICATION: viability/dating EXAMINATION: US OB less than 14 Weeks with Transvaginal TECHNIQUE: Transabdominal and transvaginal (for optimal evaluation of the adnexa) pelvic ultrasound was performed. Grayscale, spectral waveform, and color flow Doppler evaluation of the adnexa. COMPARISON: None. FINDINGS: Uterus measures 9.4 x 4.9 x 5.7 cm. Intrauterine gestational sac contains small pole and yolk sac with heart rate of 120 BPM. [place]-rump length measurement of 3.9 mm yields estimated gestational age of 6 weeks 2 days, SELINA 10/22/2023. Clinical age also 6 weeks 2 days with LMP of 01/15/2023. Gestational sac shape and amniotic fluid subjectively within normal limits. No myometrial mass or subchorionic hematoma detected. Cervix is closed. No adnexal mass or significant free pelvic fluid. Right ovary measures 2.5 x 1.7 x 2 cm and left ovary 3.2 x 2.4 x 3.1 cm. Hypoechoic left ovarian cyst measures 2.7 x 2 x 2.5 cm. Normal bilateral adnexal color Doppler flow (spectral waveform analysis was not performed). US/Transvaginal w/Preg US IMPRESSION: 1. Single live intrauterine with EGA of 6 weeks 2 days by ultrasound and LMP 2. Small left ovarian corpus luteum cyst Electronically Signed: Donald Treviño MD at 7:42 EDT ,
== END | disposition home or self-care (01) ==
LOC: US 12:38
PROVIDERS: PCP Nurse Practitioner Family; Referring Provider Obstetrics & Gynecology; Visit Provider Obstetrics & Gynecology
DX: O20.0 Threatened abortion (principal); Z3A.00 Weeks of gestation of pregnancy not specified
CPT/HCPCS: 36415; 76817; 84702

== ENCOUNTER → 2023-03-14 | Outpatient (CLI) | payer OTHER, SELFPAY ==
[2023-03-14 17:58] LABS: Amphetamine Urine VISTA NEGATIVE (<1000 ng/mL); Barbiturate Urine VISTA NEGATIVE (< 200 ng/mL); Benzodiazepine Urine VISTA NEGATIVE (< 200 ng/mL); Cocaine Urine VISTA NEGATIVE (< 300 ng/mL); Ecstacy Urine VISTA NEGATIVE (< 500 ng/mL); Methadone Urine VISTA NEGATIVE (< 300 ng/mL); PCP Urine VISTA NEGATIVE (< 25 ng/mL); THC Urine VISTA NEGATIVE (< 50 ng/mL); Vista UDS pH Range 7
[2023-03-16 22:06] LABS: Chlamydia By Nucleic Acid AMP Negative (Negative); Gonococcus By Nucleic Acid AMP Negative (Negative)
== END | disposition home or self-care (01) ==
PROVIDERS: PCP Nurse Practitioner Family; Referring Provider Registered Nurse; Visit Provider Registered Nurse
DX: Z34.90 Encounter for supervision of normal pregnancy, unspecified, unspecified trimester (principal)
CPT/HCPCS: 80307; 87086; 87088; 87491; 87591

== ENCOUNTER 2023-03-25 15:23 | Emergency (ER) | payer OTHER, SELFPAY ==
[2023-03-25 15:24] VITALS: BP 121/76; PULSE 88; RESP 18; TEMP 36.7; O2SAT 100; BMI 24.5
--- NOTE | 2023-03-25 15:46 | EDS_ITS ---
HPI HPI - Female History of Present Illness Chief Complaint: Vag Bld, Preg Informant: patient and parent Narrative Narrative: 27-year-old female G1, P0 started having vaginal light bleeding along with a little bit of a clear discharge a couple hours ago, and cramping diffuse lower abdomen nonlateralizing. No other symptoms. No recent injuries. Sees Dr[facility] Lockett. [facility] Medical History Abnormal stools Alcohol use Chronic cough Easy bruising GERD (gastroesophageal reflux disease) Incontinence of feces LLQ pain Low iron Menorrhagia Migraine headache Seasonal allergies Smoker Wears glasses Home Medications dicyclomine 10 mg capsule 10 mg PO BID 08/18/22 [History Last Taken 12/11/22] pantoprazole 20 mg tablet,delayed release 20 mg PO DAILY 08/18/22 [History Last Taken 12/11/22] pzhpmv-obxfjbio-pohxoka 40,000-126,000-168,000 unit capsule, delay rel (Zenpep) See Rx Instructions PO .COMPLEX #320 caps 01/31/23 [Rx Last Taken Unknown] albuterol sulfate 90 mcg/actuation aerosol inhaler (Ventolin HFA) 1 - 2 puff inhalation Q4H PRN PRN Wheezing ##1 03/14/23 [Rx Last Taken Unknown] Allergy/AdvReac Type Severity Reaction Status Date / Time No Known Allergies Allergy Verified 03/25/23 15:26 Family History (Updated 03/14/23 @ 15:05 by Edna García MA) Mother TIA (transient ischemic attack) Heart disease Diabetes Father COPD (chronic obstructive pulmonary disease) Grandfather Heart disease Grandmother Acute Crohn's disease Diabetes Grandfather Cancer penile, prostate and bone cancer Aunt Breast cancer Grandmother Breast cancer Acute depression Surgical History History of wisdom tooth extraction Social History adopted: No household members: spouse housing: house current occupational status: employed current occupation: [employer] current occupational exposures/hazards: Yes pets and animals: Yes leisure activities: art, hunting and fishing history of recent travel: No sexually active: Yes Smoking Status: Current every day smoker tobacco type: cigarettes Tobacco: How many years used: 10 second hand exposure: Yes quit status: considering quitting alcohol intake: former details: haven't drank since finding out substance use type: does not use caffeine: Yes eating out: 1-3 times/week what type of physical activity do you participate in: none seatbelt use: always do you feel safe at home: Yes ROS ROS ED Constitutional Constitutional ED: Denies chills or fever(s) Eyes Eyes: Denies change in vision or diplopia ENT ENT ED: Denies rhinorrhea or sore throat Cardiovascular Cardiovascular: Denies chest pain or palpitations Respiratory/Chest Respiratory/Chest: Denies cough or dyspnea Gastrointestinal Gastrointestinal: Reports abdominal pain; Denies diarrhea, nausea or vomiting Genitourinary Genitourinary ED: Reports as per HPI and vaginal bleeding; Denies dysuria or hematuria Musculoskeletal Musculoskeletal: Denies back pain or neck pain Integumentary Denies abscess or rash Neurologic Neurologic: Denies headache(s), paresthesias or weakness Psychiatric Psychiatric: Denies anxiety or suicidal thoughts EXAM Physical Exam Const Vital Signs: 03/25/23 15:24 Temperature 98.1 F Temperature Source Temporal Pulse Rate 88 Respiratory Rate 18 Blood Pressure 121/76 H Blood Pressure Mean 91 Pulse Ox 100 Oxygen Delivery Method Room Air Positive well nourished and well developed General Appearance ED: well developed and NAD HEENT Reports moist mucous membranes normocephalic and atraumatic Eyes PERRL and EOMs intact bilaterally Neck full ROM and supple Resp normal respiratory effort and clear to auscultation bilaterally Cardio regular rate, regular rhythm and no murmurs GI non-distended GI Narrative: Mild suprapubic tenderness, no guarding or rebound. Auscultation: normoactive bowel sounds Palpation: soft Speculum Exam - Vagina: vaginal bleeding Back/Spine no CVA tenderness General Back: other FROM Extremity normal to inspection General Extremety ED: Negative for edema, pulses abnormal or tenderness General Extremity: Negative for edema or pulses abnormal Neuro oriented x3, CN's II-XII intact bilaterally and no sensory deficits noted Sensorium / Orientation: awake and alert Motor Exam: strength 5/5 throughout Skin no rashes or lesions noted and no wounds MDM MDM MDM Narrative Medical decision making narrative: Patient had a prior ultrasound showing single live intrauterine , I did another 1, it confirms that the patient has a single live intrauterine with good movement and heart tones 163. Reassured, discharged and stable for follow-up. Blood type indicates patient does not require RhoGAM. History & Record Review Additional record(s) reviewed:: Prior labs (Blood type O+) Discharge Plan Triage Chief Complaint: Vag Bld, Preg ED Provider: Elton Prajapati Dx/Rx/DC Orders Clinical Impression: Threatened Instructions: ED Possible Miscarriage ... Prescriptions: No Action pantoprazole 20 mg tablet,delayed release (DR/EC) 20 mg PO DAILY dicyclomine 10 mg capsule 10 mg PO BID albuterol sulfate [Ventolin HFA] 90 mcg/actuation HFA aerosol inhaler 1 - 2 puff inhalation Q4H PRN PRN (Reason: Wheezing) Qty: 1 6RF Zenpep 40,000-126,000- 168,000 unit capsule,delayed release(DR/EC) See Rx Instructions PO .COMPLEX Qty: 320 11RF Rx Instructions: take 1-2 with meals and one with snacks Primary Care Provider: Temi Rice NP Referrals: Daphnie Lockett MD [Med Staff - Active Staff] - As soon as possible Temi Rice NP, WAREHOUSE WORKER-C [Primary Care Provider] - Disposition Disposition: Home, Self Care
== END 2023-03-25 16:14 | disposition home or self-care (01) ==
PROVIDERS: Emergency Provider Emergency Medicine; PCP Nurse Practitioner Family; Visit Provider Emergency Medicine
DX: O20.0 Threatened abortion (principal); O99.619 Diseases of the digestive system complicating pregnancy, unspecified trimester; K21.9 Gastro-esophageal reflux disease without esophagitis; Z3A.00 Weeks of gestation of pregnancy not specified; O99.330 Smoking (tobacco) complicating pregnancy, unspecified trimester; F17.210 Nicotine dependence, cigarettes, uncomplicated
CPT/HCPCS: 99282

== ENCOUNTER → 2023-04-03 | Outpatient (CLI) | payer OTHER, SELFPAY ==
[2023-04-03 10:11] LABS: Absolute Lymphocyte Count 2.24 X10^3/uL (0.83-4.51); Absolute Neutrophil Count 7.4 X10^3/uL (2.0-7.7); Basophil# 0.06 X10^3/uL; Basophil% 0.6 % (0-1); Eosinophil# 0.25 X10^3/uL; Eosinophils% 2.3 % (0-5); Hematocrit 41.8 % (37-47); Hemoglobin 13.8 g/dL (12.0-15.0); Lymphocyte # 2.24 X10^3/ul (0.83-4.51); Mean Corpuscular Hgb 29.2 pg (27.0-32.0); Mean Corpuscular Volume 88.6 fL (81-99); Monocyte# 0.65 X10^3/uL; Monocyte% 6.1 % (0-10); NRBC Flagged by Analyzer 0 % (0-5); Neutrophil # 7.41 X10^3/uL (2.7-7.7); Neutrophil % 69.5 % (47-70); Platelet Count 359 K/mm3 (150-450); RBC Distribution Width CV 13.2 % (11.6-14.6); RBC Distribution Width SD 43.2 fl (35.1-43.9); Red Blood Count 4.72 M/mm3 (4.2-5.4); White Blood Count 10.7 K/mm3 (4.4-11.0)
[2023-04-03 10:41] LABS: NATERA MAILED SPECIMEN
[2023-04-03 11:40] LABS: HIV - WCH Non-Reactive (Nonreactive); Hepatitis B Surface Antigen Non-Reactive (Nonreactive); Hepatitis C Antibody Non-Reactive (Nonreactive); Rubella IgG Reactive (Nonreactive); Syphilis Antibodies Non-reactive
== END | disposition home or self-care (01) ==
LOC: LAB 09:36
PROVIDERS: PCP Nurse Practitioner Family; Referring Provider Registered Nurse; Visit Provider Registered Nurse
DX: Z34.81 Encounter for supervision of other normal pregnancy, first trimester (principal)
CPT/HCPCS: 36415; 85025; 86703; 86762; 86780; 86803; 86850; 86900; 86901; 87340

== ENCOUNTER → 2023-08-02 | Outpatient (CLI) | payer OTHER, SELFPAY ==
[2023-08-02 13:36] LABS: Absolute Lymphocyte Count 2.42 X10^3/uL (0.83-4.51); Absolute Neutrophil Count 10.8 X10^3/uL (2.0-7.7); Basophil# 0.07 X10^3/uL; Basophil% 0.5 % (0-1); Eosinophils% 1.4 % (0-5); Hematocrit 34.6 % (37-47); Hemoglobin 11.2 g/dL (12.0-15.0); Lymphocyte # 2.42 X10^3/ul (0.83-4.51); Lymphocyte % 16.7 % (19-41); Mean Corp Hgb Conc 32.4 g/dL (32-36); Mean Corpuscular Hgb 28.4 pg (27.0-32.0); Mean Corpuscular Volume 87.6 fL (81-99); Mean Platelet Vol. 9.2 fl (6.2-12.0); Monocyte# 0.82 X10^3/uL; Monocyte% 5.7 % (0-10); NRBC Flagged by Analyzer 0 % (0-5); Neutrophil # 10.77 X10^3/uL (2.7-7.7); Neutrophil % 74.3 % (47-70); Platelet Count 370 K/mm3 (150-450); RBC Distribution Width CV 13.2 % (11.6-14.6); RBC Distribution Width SD 42.6 fl (35.1-43.9); Red Blood Count 3.95 M/mm3 (4.2-5.4); White Blood Count 14.5 K/mm3 (4.4-11.0)
[2023-08-02 13:51] LABS: Glucose Challenge Gest 1H 50g 128 mg/dL (70-140)
[2023-08-02 14:28] LABS: HIV - WCH Non-Reactive (Nonreactive); Syphilis Antibodies Non-reactive
== END | disposition home or self-care (01) ==
LOC: LAB 12:41
PROVIDERS: PCP Nurse Practitioner Family; Referring Provider Obstetrics & Gynecology; Visit Provider Obstetrics & Gynecology
DX: O09.90 Supervision of high risk pregnancy, unspecified, unspecified trimester (principal); Z13.1 Encounter for screening for diabetes mellitus; Z3A.00 Weeks of gestation of pregnancy not specified
CPT/HCPCS: 36415; 82950; 85025; 86703; 86780

== ENCOUNTER 2023-09-25 19:35 | Outpatient (CLI) | payer OTHER, SELFPAY ==
[2023-09-25 19:54] VITALS: BP 138/78; PULSE 76; PULSE 81; O2SAT 98
[2023-09-25 19:55] VITALS: RESP 16; TEMP 36.6; O2SAT 98
[2023-09-25 20:02] VITALS: BMI 28.4
[2023-09-25 20:12] VITALS: BP 115/64; PULSE 71
[2023-09-25 20:16] LABS: Color, Urine Yellow (Yellow); Glucose, Dipstick Normal (Normal); Ketone-Dipstick Negative (Negative); Leukocyte Esterase-Dipstick 100 /ul (Negative); Nitrite-Dipstick Negative (Negative); Occult Blood-Urine 10 /ul (Negative); Protein-Dipstick Negative (Negative); Urine Bilirubin Dipstick Negative (Negative); Urine Clarity Clear (Clear); Urine Urobilinogen Normal (Normal)
[2023-09-25 20:27] VITALS: BP 122/71; PULSE 86
[2023-09-25 20:42] VITALS: BP 123/73; PULSE 80
--- NOTE | 2023-09-25 20:52 | OB.TRI.PN ---
Progress Notes Date of Service: 09/25/23 Progress Note: Patient presents for triage evaluation secondary to urinary frequency and bladder discomfort FHT: 135 Moderate variability reactive no decelerations category I tracing [place]: occasional Contractions Assessment and plan: UA and culture sent, Reactive NST, reassuring maternal and status patient discharged to home to follow-up as scheduled. See problem list details for additional plan information. Laboratory Studies: Laboratory Tests 09/25/23 Range/Units 20:00 Urine Color Yellow (Yellow) Urine Clarity Clear (Clear) Urine pH 7.0 (5.0 - 8.0) Ur Specific [place] 1.010 (1.002-1.030) Urine Protein Negative (Negative) mg/dl Urine Glucose (UA) Normal (Normal) mg/dl Urine Ketones Negative (Negative) mg/dl Urine Occult Blood 10 H (Negative) /ul Urine Nitrite Negative (Negative) Urine Bilirubin Negative (Negative) mg/dL Urine Urobilinogen Normal (Normal) mg/dl Ur Leukocyte Esterase 100 H (Negative) /ul Charges/Coding Multi Select Codes Urinary/Genital Urinary/Genital CPT Codes: 50876-11 non-stress test Interp Assessment & Plan (1) UTI (urinary tract infection) during : PLAN: Macrobid pending culture results follow up in office this week
[2023-09-25 20:57] VITALS: BP 117/75; PULSE 81
== END 2023-09-25 21:28 | disposition home or self-care (01) ==
LOC: WPOUT 19:48 → WP 19:48
PROVIDERS: PCP Nurse Practitioner Family; Referring Provider Advanced Practice Midwife; Visit Provider Advanced Practice Midwife
DX: O23.40 Unspecified infection of urinary tract in pregnancy, unspecified trimester (principal); Z3A.00 Weeks of gestation of pregnancy not specified
CPT/HCPCS: 59025; 59050; 81002; 87086; 99221; G0378

== ENCOUNTER → 2023-09-27 | Outpatient (CLI) | payer OTHER, SELFPAY ==
[2023-09-27 18:34] LABS: Group B Strep DNA By PCR Negative (Negative); Internal Control PASS; Probe Check PASS; Specimen Processing Control PASS
--- OUTSIDE RECORDS SUMMARY | 2023-09-27 22:23 | XMS RPT_ITS | CCD ---
Author Name Unknown Address [id number] [place] [address] Organization [facility] Care Team Providers Care Med Surg Nurse Name Role Phone Dwayne ART INSTRUCTOR.Temi RUBIO Primary Care Provider QUEDEN, TEMI A Attending Unavailable QUEDEN, TEMI A Primary Care Unavailable QUEDEN, TEMI A Attending Unavailable QUEDEN, TEMI A Primary Care Unavailable QUEDEN, TEMI A Referring Unavailable QUEDEN, TEMI A Primary Care Unavailable QUEDEN, TEMI A Primary Care Unavailable QUEDEN, TEMI A Referring Unavailable QUEDEN, TEMI A Primary Care Unavailable QUEDEN, TEMI A Referring Unavailable NO PRIMARY CARE, Primary Care Unavailable LORRAINE BERMAN Referring Unavailable SAIRA BURNETT Attending Unavailable Medications Completed/Discontinued Medications Medication Drug Class(es) Dates Sig (Normalized) Sig (Original) dicyclomine hydrochloride 10 mg oral capsule (8 sources) Anticholinergic Start: 08-03-2022 take 1 capsule by mouth at bedtime dicyclomine (BENTYL) 10 mg capsule Indications: Incontinence of feces with fecal urgency Take 1 capsule by mouth before meals and at bedtime. 120 capsule 1 08/03/2022 Active Problems Active Problems Problem Classification Problem Date Documented Da te Episodic/Chronic Menstrual disorders (11 sources) Menorrhagia; Translations: [Excessive and frequent menstruation with regular cycle] Onset: 08-03-2022 Chronic Nutritional deficiencies (2 sources) Iron deficiency; Translations: [Iron deficiency] Episodic Substance-related disorders (10 sources) Smoker; Translations: [Nicotine dependence, unspecified, uncomplicated] Onset: 08-03-2022 Chronic Past or Other Problems Problem Classification Problem Date Documented Da te Episodic/Chronic Abdominal pain (12 sources) Left lower quadrant pain; Translations: [Left lower quadrant pain] Onset: 08-03-2022 Episodic Gastrointestinal hemorrhage (11 sources) Hematochezia; Translations: [Melena] Onset: 08-03-2022 Episodic Noninfectious gastroenteritis (8 sources) Colitis; Translations: [Noninfective gastroenteritis and colitis, unspecified] Onset: 08-03-2022 08-03-2022 Episodic Other gastrointestinal disorders (10 sources) Abnormal feces; Translations: [Other fecal abnormalities] Onset: 08-03-2022 Episodic Other gastrointestinal disorders (10 sources) Fecal incontinence with fecal urgency; Translations: [Full incontinence of feces] Onset: 08-03-2022 Episodic Other gastrointestinal disorders (9 sources) Heartburn; Translations: [Heartburn] Onset: 08-03-2022 Episodic Other gastrointestinal disorders (1 source) Other fecal abnormalities; Translations: [Abnormal stools] Onset: 08-03-2022 Episodic Other gastrointestinal disorders (1 source) Heartburn; Translations: [Heartburn] Onset: 08-03-2022 Episodic Other gastrointestinal disorders (1 source) Full incontinence of feces; Translations: [Incontinence of feces with fecal urgency] Onset: 08-03-2022 Episodic Other gastrointestinal disorders (1 source) Fecal urgency; Translations: [Incontinence of feces with fecal urgency] Onset: 08-03-2022 Episodic Screening and history of mental health and substance abuse codes (2 sources) Patient encounter status; Translations: [Encounter for screening for depression] Onset: 08-03-2022 Episodic Results Test Name Value Interpretation Reference Range Facil ity Vital Signs Date Time Vital Sign Value Performing Clinician Emily blankenship 09-08-2022 11:14-0500 Body height 167.6 cm Temi Rodrigez APRN.CNP Work Phone: [facility] 09-08-2022 11:14-0500 Body temperature 97.39 [degF] Temi Rodrigez APRN.CNP Work Phone: [facility] 09-08-2022 11:14-0500 Body weight 69.85 kg Temi Rodrigez APRN.CNP Work Phone: [facility] 09-08-2022 11:14-0500 Diastolic blood pressure 62 mm[Hg] Temi Queden ART INSTRUCTOR.TUG BOAT CAPTAIN Work Phone: [facility] 09-08-2022 11:14-0500 Heart rate 74 /min Temi Queden ART INSTRUCTOR.TUG BOAT CAPTAIN Work Phone: [facility] 09-08-2022 11:14-0500 Respiratory rate 18 /min Temi Queden ART INSTRUCTOR.TUG BOAT CAPTAIN Work Phone: [facility] 09-08-2022 11:14-0500 SaO2% (BldA) [Mass fraction] 100 % Temi Queden ART INSTRUCTOR.TUG BOAT CAPTAIN Work Phone: [facility] 09-08-2022 11:14-0500 Systolic blood pressure 118 mm[Hg] Temi Queden ART INSTRUCTOR.TUG BOAT CAPTAIN Work Phone: [facility] 08-03-2022 08:18-0500 Body height 167.6 cm Temi Queden ART INSTRUCTOR.TUG BOAT CAPTAIN Work Phone: [facility] 08-03-2022 08:18-0500 Body temperature 97.7 [degF] Temi Queden ART INSTRUCTOR.TUG BOAT CAPTAIN Work Phone: [facility] 08-03-2022 08:18-0500 Body weight 70.76 kg Temi Queden ART INSTRUCTOR.TUG BOAT CAPTAIN Work Phone: [facility] 08-03-2022 08:18-0500 Diastolic blood pressure 70 mm[Hg] Temi Queden ART INSTRUCTOR.TUG BOAT CAPTAIN Work Phone: [facility] 08-03-2022 08:18-0500 Heart rate 79 /min Temi Queden ART INSTRUCTOR.TUG BOAT CAPTAIN Work Phone: [facility] 08-03-2022 08:18-0500 Respiratory rate 18 /min Temi Queden ART INSTRUCTOR.TUG BOAT CAPTAIN Work Phone: [facility] 08-03-2022 08:18-0500 SaO2% (BldA) [Mass fraction] 97 % Temi Queden ART INSTRUCTOR.TUG BOAT CAPTAIN Work Phone: [facility] 08-03-2022 08:18-0500 Systolic blood pressure 122 mm[Hg] Temi Rodrigez ART INSTRUCTOR.TUG BOAT CAPTAIN Work Phone: [facility] Encounters Encounter Date Encounter Type Care Provider Facility Start: 05-25-2023 End: 05-25-2023 ambulatory MD [facility] Start: 03-28-2023 ambulatory Sandra Mattson MA [facility] Procedures Date Procedure Procedure Detail Performing Clinician Start: 09-08-2022 Follow-up visit Follow Up TEMI RODRIGEZ Plan of Treatment Date Care Activity Detail Author Start: 03-16-2025 PAP TESTING PAP TESTING [facility] Start: 09-08-2023 PNEUMOCOCCAL (1 - PCV) PNEUMOCOCCAL (1 - PCV) [facility] Immunizations Immunization Date Immunization Notes Care Provider Catherine aguila 11-18-2014 meningococcal oligosaccharide (groups A, C, Y and W-135) diphtheria toxoid conjugate vaccine (MCV4O) Temi Rodrigez ART INSTRUCTOR.TUG BOAT CAPTAIN Work Phone: [facility] 11-18-2014 meningococcal polysaccharide (groups A, C, Y and W-135) diphtheria toxoid conjugate vaccine (MCV4P) Temifuentes Rodrigez ART INSTRUCTOR.TUG BOAT CAPTAIN Work Phone: [facility] 04-09-2000 diphtheria, tetanus toxoids and acellular pertussis vaccine Temi Queden ART INSTRUCTOR.TUG BOAT CAPTAIN Work Phone: [facility] 04-09-2000 measles, mumps and r ubella virus vaccine Temi Queden ART INSTRUCTOR.TUG BOAT CAPTAIN Work Phone: [facility] 04-09-2000 trivalent poliovirus vaccine, live, oral Temi Queden ART INSTRUCTOR.TUG BOAT CAPTAIN Work Phone: [facility] 10-01-1997 trivalent poliovirus vaccine, live, oral Temi Queden ART INSTRUCTOR.TUG BOAT CAPTAIN Work Phone: [facility] 07-03-1997 diphtheria, tetanus toxoids and acellular pertussis vaccine Temi Queden ART INSTRUCTOR.TUG BOAT CAPTAIN Work Phone: [facility] 07-03-1997 haemophilus influenz ae type b vaccine, HbOC conjugate Temi Queden ART INSTRUCTOR.TUG BOAT CAPTAIN Work Phone: [facility] 07-03-1997 measles, mumps and r ubella virus vaccine Temi Queden ART INSTRUCTOR.TUG BOAT CAPTAIN Work Phone: [facility] 04-07-1997 varicella virus vaccine Brit tny Queden ART INSTRUCTOR.TUG BOAT CAPTAIN Work Phone: [facility] 01-19-1997 hepatitis B vaccine, pediatric or pediatric/adolescent dosage Temi Queden ART INSTRUCTOR.TUG BOAT CAPTAIN Work Phone: [facility] 1996 diphtheria, tetanus toxoids and acellular pertussis vaccine Temi Queden ART INSTRUCTOR.TUG BOAT CAPTAIN Work Phone: [facility] 1996 haemophilus influenz ae type b vaccine, HbOC conjugate Temi Queden ART INSTRUCTOR.TUG BOAT CAPTAIN Work Phone: [facility] 1996 diphtheria, tetanus toxoids and acellular pertussis vaccine Temi Queden ART INSTRUCTOR.TUG BOAT CAPTAIN Work Phone: [facility] 1996 haemophilus influenz ae type b vaccine, HbOC conjugate Temi Queden ART INSTRUCTOR.TUG BOAT CAPTAIN Work Phone: [facility] 1996 trivalent poliovirus vaccine, live, oral Temi Queden ART INSTRUCTOR.TUG BOAT CAPTAIN Work Phone: [facility] 1996 diphtheria, tetanus toxoids and acellular pertussis vaccine Temi Queden ART INSTRUCTOR.TUG BOAT CAPTAIN Work Phone: [facility] 1996 haemophilus influenz ae type b vaccine, HbOC conjugate Temi Queden ART INSTRUCTOR.TUG BOAT CAPTAIN Work Phone: [facility] 1996 hepatitis B vaccine, pediatric or pediatric/adolescent dosage Temi Queden ART INSTRUCTOR.TUG BOAT CAPTAIN Work Phone: [facility] 1996 trivalent poliovirus vaccine, live, oral Temi Queden ART INSTRUCTOR.TUG BOAT CAPTAIN Work Phone: [facility] 1996 hepatitis B vaccine, pediatric or pediatric/adolescent dosage Temi Rodrigez ART INSTRUCTOR.JOANNE Work Phone: [facility] Payers Date Payer Category Payer Unknown [id number] 2019 Unknown [id number] 1995 Unknown [id number] Social History Date Type Detail Facility Start: 08-03-2022 End: 09-08-2022 Tobacco smoking status DCIS Smokes tobacco daily [facility] History of tobacco use Cigarette Smoker [facility] Start: 08-03-2022 End: 09-08-2022 Cigarettes smoked current (pack per day) - Reported 0.5 [facility] Work Phone: Start: 08-03-2022 End: 09-08-2022 Tobacco use and exposure Smokeless tobacco non-user [facility] Start: 08-03-2022 End: 09-08-2022 Alcohol intake Current drinker of alcohol (finding) [facility] Start: 1995 Sex Assigned At Not on file C [facility] Start: 09-08-2022 Alcohol Comment Once a week [facility] Start: 08-03-2022 End: 09-08-2022 Tobacco use panel [facility] Work Phone: Adult Depression Screening Assessment 1 [facility] Work Phone: Clinical Notes 02-18-2021 to 03-28-2023 Sandra Mattson MA - 03/28/2023 9:50 AM Kimberly Rodrigez APRN.CNP - 09/08/2022 11:30 AM ESTTelephone Encounter - Sandra Mattson MA - 08/15/2022 5:01 PM ESTPatient Instructions Note Date & Type Note Facility 03-28-2023 Note Patient Outreach (AG FAMPLE) KEY ZELAYA Shady ([id number]) 1995 F Date Time Provider Department 03/28/23 SANDRA MATTSON During your visit today, we recorded the following information about you: Sandra Mattson MA 03/28/2023 9:51 AM Signed ED Follow Up: Patient discharged from [facility] ED on 03/25/2023. 1. How are you feeling since your ED visit? na Have your symptoms improved or resolved? Not applicable 2. Were you prescribed any medications while in the ED or advised to stop any medication? Not applicable - If yes, were you able to fill your prescriptions? Not applicable -if stopped medication, what was the medication? na 3. Were you advised to schedule a follow up appointment with your provider? Not applicable - If no, Do you feel like you need an appointment scheduled? Not applicable - If yes, Do you need this scheduled now or has this already been scheduled? Not applicable 4. Were you able to contact the office or solution specialist provider prior to your ED visit? Not applicable 5. Is there anything else I can do for you today? Not applicable Called lm on pt vm to contact office if she needs anything or would like to make a follow up visit. Sandra Mattson MA Allergies As of Date: 03/28/2023 (No Known Allergies) Date Reviewed: 09/08/2022 Reviewed by: Temi Rodrigez APRN.TUG BOAT CAPTAIN - Fully Assessed Reason for Visit: ED outreach [Other] Cmt: Ed outreach [place] 03/25/23 Prescriptions as of 03/28/2023 - Ferrous Sulfate (SLOW FE) 142 mg (45 mg iron) TbER Take 1 tablet by mouth once daily. - ELURYNG 0.12-0.015 mg/24 hr vaginal ring INSERT 1 RING IN VAGINA FOR 21 DAYS, REMOVE FOR 7 DAYS THEN INSERT NEW RING - pantoprazole DR (PROTONIX) 20 mg tablet Take 1 tablet by mouth once daily. - dicyclomine (BENTYL) 10 mg capsule Take 1 capsule by mouth before meals and at bedtime. Problem List As Of Date 03/28/2023 Noted Resolved Colitis [K52.9] 08/03/2022 Blood in stool [K92.1] 08/03/2022 Abnormal stools [R19.5] 08/03/2022 LLQ pain [R10.32] 08/03/2022 Heartburn [R12] 08/03/2022 Incontinence of feces with fecal urgency [R15.9*08/03/2022 Menorrhagia with regular cycle [N92.0] 08/03/2022 Smoker [F17.200] 08/03/2022 Encounter Status:Closed by SANDRA MATTSON on 03/28/23 [facility] 03-28-2023 Note HNO ID: [id number] Author: Sandra Mattson MA Service: ? Author Type: Power System Engineer Type: Progress Notes Filed: 03/28/2023 9:51 AM Note Text: ED Follow Up: Patient discharged from [facility] ED on 03/25/2023. 1. How are you feeling since your ED visit? na Have your symptoms improved or resolved? Not applicable 2. Were you prescribed any medications while in the ED or advised to stop any medication? Not applicable - If yes, were you able to fill your prescriptions? Not applicable -if stopped medication, what was the medication? na 3. Were you advised to schedule a follow up appointment with your provider? Not applicable - If no, Do you feel like you need an appointment scheduled? Not applicable - If yes, Do you need this scheduled now or has this already been scheduled? Not applicable 4. Were you able to contact the office or solution specialist provider prior to your ED visit? Not applicable 5. Is there anything else I can do for you today? Not applicable Called lm on pt to contact office if she needs anything or would like to make a follow up visit. Sandra Mattson MA [facility] 03-28-2023 History of Presen t illness Narrative ED Follow Up: Patient discharged from [facility] ED on 03/25/2023. 1. How are you feeling since your ED visit? na Have your symptoms improved or resolved? Not applicable 2. Were you prescribed any medications while in the ED or advised to stop any medication? Not applicable - If yes, were you able to fill your prescriptions? Not applicable -if stopped medication, what was the medication? na 3. Were you advised to schedule a follow up appointment with your provider? Not applicable - If no, Do you feel like you need an appointment scheduled? Not applicable - If yes, Do you need this scheduled now or has this already been scheduled? Not applicable 4. Were you able to contact the office or solution specialist provider prior to your ED visit? Not applicable 5. Is there anything else I can do for you today? Not applicable\ Called lm on pt vm to contact office if she needs anything or would like to make a follow up visit. Sandra Mattson MA documented in this encounter [facility] 09-08-2022 Note HNO ID: [id number] Author: Temi Rodrigez APRN.TUG BOAT CAPTAIN Service: ? Author Type: Nurse Practitioner Type: Progress Notes Filed: 09/10/2022 5:50 PM Note Text: CHIEF COMPLAINT: Key Zelaya is a 27 year old female who presents for follow up for bloody bowel movements. She reports she has been doing well since her last appointment. She significantly cut back on her alcohol intake to only 3 beers a week. She hasn't cut back on smoking yet. She has also increased her fiber intake and has been taking her iron supplement. She does report one episode this past Sunday where she had blood in her stool and when she wiped. She has used the Bentyl medication about once a day and feels it is helping the fecal urgency. She has an appointment with GI in [place] in October. I reviewed past medical, surgical, social, and family histories today and updated chart. Allergies, chronic medications, and supplements were also reviewed. The history is provided by the patient. No sign language teacher was used. History reviewed. No pertinent past medical history. History reviewed. No pertinent surgical history. Social History Tobacco Use Smoking status: Every Day Packs/day: 1.00 Types: Cigarettes Smokeless tobacco: Never Substance Use Topics Alcohol use: Yes Comment: Once a week Drug use: Never ALLERGIES No Known Allergies Family History Problem Relation Age of Onset Stroke Mother Heart Attack Mother COPD Father Diabetes Maternal Grandmother other (Bone cancer) Maternal Grandfather Diabetes Maternal Grandfather Breast Cancer Paternal Grandmother Current Outpatient Medications Medication Sig Dispense Refill Ferrous Sulfate (SLOW FE) 142 mg (45 mg iron) TbER Take 1 tablet by mouth once daily. 30 tablet 2 ELURYNG 0.12-0.015 mg/24 hr vaginal ring INSERT 1 RING IN VAGINA FOR 21 DAYS, REMOVE FOR 7 DAYS THEN INSERT NEW RING pantoprazole DR (PROTONIX) 20 mg tablet Take 1 tablet by mouth once daily. 30 tablet 2 dicyclomine (BENTYL) 10 mg capsule Take 1 capsule by mouth before meals and at bedtime. 120 capsule 1 No current facility-administered medications for this visit. Review of Systems Constitutional: Negative for appetite change, chills, diaphoresis, fatigue and fever. Respiratory: Negative. Cardiovascular: Negative. Gastrointestinal: Positive for blood in stool (once this past Sunday) and diarrhea (improving now). Negative for abdominal distention, abdominal pain, constipation, nausea and vomiting. Genitourinary: Negative. BP 118/62 Pulse 74 Temp 97.4 Resp 18 Ht 5' 6 (1.68m) Wt 154 lb (69.9kg) SpO2 100% BMI 24.87 kg/(m2). Physical Exam Vitals and nursing note reviewed. Constitutional: Appearance: Normal appearance. HENT: Mouth/Throat: Mouth: Mucous membranes are moist. Eyes: Pupils: Pupils are equal, round, and reactive to light. Cardiovascular: Rate and Rhythm: Normal rate and regular rhythm. Heart sounds: Normal heart sounds. Pulmonary: Effort: Pulmonary effort is normal. Breath sounds: Normal breath sounds. Abdominal: General: Bowel sounds are normal. There is no distension. Palpations: Abdomen is soft. There is no hepatomegaly or splenomegaly. Tenderness: There is no abdominal tenderness. Skin: General: Skin is warm and dry. Neurological: Mental Status: She is alert and oriented to person, place, and time. No visits with results within 1 Day(s) from this visit. Latest known visit with results is: Appointment on 08/11/2022 Component Date Value Ref Range Status Color 08/11/2022 Light Yellow (A) Yellow Final Clarity 08/11/2022 Clear Clear Final Glucose, Urine 08/11/2022 Negative Negative Final Bilirubin, Urine 08/11/2022 Negative Negative Final Ketones, Urine 08/11/2022 Negative Negative Final Specific [place], Ur 08/11/2022 1.010 1.005 - 1.030 Final Hemoglobin/Blood,Ur 08/11/2022 1+ (A) Negative Final pH, Urine 08/11/2022 7.0 5.0 - 8.0 Final Protein, Urine 08/11/2022 Negative Negative Final Urobilinogen 08/11/2022 0.2 EU/dL 0.2-1.0 EU/dL Final Nitrites 08/11/2022 Negative Negative Final Leuk Esterase 08/11/2022 Negative Negative Final WBC, Urine 08/11/2022 0-5 /HPF 0-5 /HPF Final RBC, Urine 08/11/2022 0-3 /HPF 0-3 /HPF Final Squamous Epithelial Cells 08/11/2022 Few /HPF Final ASSESSMENT/PLAN: 1. Blood in stool - ICD9: 578.1, ICD10: K92.1 (primary diagnosis) - Has improved but had one episode this past Sunday. Continue current medications and continue to monitor. Labs are stable. She will be seeing GI in October. F/U if symptoms worsen. 2. Iron deficiency - ICD9: 280.9, ICD10: E61.1 - Tolerating iron replacement well 3. Abnormal stools - ICD9: 787.7, ICD10: R19.5 - Improvement since probiotics, increasing her fiber, and cutting back on alcohol 4. Incontinence of feces with fecal urgency - ICD9: 787.63, ICD10: R15.9, R15.2 - Improving with taking Bentyl and increasing her fiber 5. M (more content not included)... [facility] 09-08-2022 History of Presen t illness Narrative CHIEF COMPLAINT: Key Zelaya is a 27 year old female who presents for follow up for bloody bowel movements. She reports she has been doing well since her last appointment. She significantly cut back on her alcohol intake to only 3 beers a week. She hasn't cut back on smoking yet. She has also increased her fiber intake and has been taking her iron supplement. She does report one episode this past Sunday where she had blood in her stool and when she wiped. She has used the Bentyl medication about once a day and feels it is helping the fecal urgency. She has an appointment with GI in [place] in October. I reviewed past medical, surgical, social, and family histories today and updated chart. Allergies, chronic medications, and supplements were also reviewed. The history is provided by the patient. No sign language teacher was used. History reviewed. No pertinent past medical history. History reviewed. No pertinent surgical history. Social History Tobacco Use Smoking status: Every Day Packs/day: 1.00 Types: Cigarettes Smokeless tobacco: Never Substance Use Topics Alcohol use: Yes Comment: Once a week Drug use: Never ALLERGIES No Known Allergies Family History Problem Relation Age of Onset Stroke Mother Heart Attack Mother COPD Father Diabetes Maternal Grandmother other (Bone cancer) Maternal Grandfather Diabetes Maternal Grandfather Breast Cancer Paternal Grandmother Current Outpatient Medications Medication Sig Dispense Refill Ferrous Sulfate (SLOW FE) 142 mg (45 mg iron) TbER Take 1 tablet by mouth once daily. 30 tablet 2 ELURYNG 0.12-0.015 mg/24 hr vaginal ring INSERT 1 RING IN VAGINA FOR 21 DAYS, REMOVE FOR 7 DAYS THEN INSERT NEW RING pantoprazole DR (PROTONIX) 20 mg tablet Take 1 tablet by mouth once daily. 30 tablet 2 dicyclomine (BENTYL) 10 mg capsule Take 1 capsule by mouth before meals and at bedtime. 120 capsule 1 No current facility-administered medications for this visit. Review of Systems Constitutional: Negative for appetite change, chills, diaphoresis, fatigue and fever. Respiratory: Negative. Cardiovascular: Negative. Gastrointestinal: Positive for blood in stool (once this past Sunday) and diarrhea (improving now). Negative for abdominal distention, abdominal pain, constipation, nausea and vomiting. Genitourinary: Negative. BP 118/62 Pulse 74 Temp 97.4 Resp 18 Ht 5' 6 (1.68m) Wt 154 lb (69.9kg) SpO2 100% BMI 24.87 kg/(m^2). Physical Exam Vitals and nursing note reviewed. Constitutional: Appearance: Normal appearance. HENT: Mouth/Throat: Mouth: Mucous membranes are moist. Eyes: Pupils: Pupils are equal, round, and reactive to light. Cardiovascular: Rate and Rhythm: Normal rate and regular rhythm. Heart sounds: Normal heart sounds. Pulmonary: Effort: Pulmonary effort is normal. Breath sounds: Normal breath sounds. Abdominal: General: Bowel sounds are normal. There is no distension. Palpations: Abdomen is soft. There is no hepatomegaly or splenomegaly. Tenderness: There is no abdominal tenderness. Skin: General: Skin is warm and dry. Neurological: Mental Status: She is alert and oriented to person, place, and time. No visits with results within 1 Day(s) from this visit. Latest known visit with results is: Appointment on 08/11/2022 Component Date Value Ref Range Status Color 08/11/2022 Light Yellow (A) Yellow Final Clarity 08/11/2022 Clear Clear Final Glucose, Urine 08/11/2022 Negative Negative Final Bilirubin, Urine 08/11/2022 Negative Negative Final Ketones, Urine 08/11/2022 Negative Negative Final Specific [place], Ur 08/11/2022 1.010 1.005 - 1.030 Final Hemoglobin/Blood,Ur 08/11/2022 1+ (A) Negative Final pH, Urine 08/11/2022 7.0 5.0 - 8.0 Final Protein, Urine 08/11/2022 Negative Negative Final Urobilinogen 08/11/2022 0.2 EU/dL 0.2-1.0 EU/dL Final Nitrites 08/11/2022 Negative Negative Final Leuk Esterase 08/11/2022 Negative Negative Final WBC, Urine 08/11/2022 0-5 /HPF 0-5 /HPF Final RBC, Urine 08/11/2022 0-3 /HPF 0-3 /HPF Final Squamous Epithelial Cells 08/11/2022 Few /HPF Final ASSESSMENT/PLAN: 1. Blood in stool - ICD9: 578.1, ICD10: K92.1 (primary diagnosis) - Has improved but had one episode this past Sunday. Continue current medications and continue to monitor. Labs are stable. She will be seeing GI in October. F/U if symptoms worsen. 2. Iron deficiency - ICD9: 280.9, ICD10: E61.1 - Tolerating iron replacement well 3. Abnormal stools - ICD9: 787.7, ICD10: R19.5 - Improvement since probiotics, increasing her fiber, and cutting back on alcohol 4. Incontinence of feces with fecal urgency - ICD9: 787.63, ICD10: R15.9, R15.2 - Improving with taking Bentyl and increasing her fiber 5. Menorrhagia with regular cycle - ICD9: 626.2, ICD10: N92.0 - TVUS showed No acute adnexal abnormalities. A 1.1 cm hypoechoic possibly anechoic lesion in the lower uterine segment suggests trapped fluid. Attention on follow-up is recommended. - Recommended she follow up with her REGULATORY AUDITOR. Result printed out for her. 6. LLQ pain - ICD9: 789.04, ICD10: R10.32 - Resolved New medication(s) prescribed today: None. Counseling completed in adopting health behaviors such as avoiding excessive alcohol use, avoid tobacco use, improve nutrition, and engage in physical activities. Copy of written care plan, clinical summary, treatment plan, new medications, goals, and self management requirements were given to patient. Temi Rodrigez APRN.CNP documented in this encounter [facility] 08-15-2022 Miscellaneous Notes Patient notified and voiced understanding. Patient states for the transvaginal ultrasound she took the nuvaring out. Sandra Mattson MA ----- Message from Temi Rodrigez APRN.CNP sent at 08/15/2022 4:16 PM EST ----- Please let the patient know that her US was normal and did not show any fibroids or cysts. Did she take her Nuvaring out for the procedure or leave it in? documented in this encounter [facility] 08-14-2022 Miscellaneous Notes Patient notified and voiced understanding. She is seeing GI doctor in October. Sandra Mattson MA CBC was stable- no anemia CMP and TSH were normal B12 and folic acid were normal. The transferrin saturation was low indicating iron deficiency. I would recommend an iron replacement called Slow Fe because it is more tolerable. I'm going to send this in for her. Still recommend that she sees GI for the blood in her stool. documented in this encounter [facility] 08-11-2022 Note HNO ID: [id number] Author: RT Joshua(R) Service: ? Author Type: Technologist Type: Progress Notes Filed: 08/11/2022 1:37 PM Note Text: Radiology Service Progress Note PATIENT NAME: Key Zelaya DATE OF SERVICE: August 11, 2022 TIME: 1:36 PM PATIENT IDENTITY VERIFICATION COMPLETED USING TWO (2) IDENTIFIERS: Name and Date of confirmed by patient verbally. FALL SCREENING: Has the patient had 2 falls in the last year or 1 fall with injury or currently using an Ambulatory Assistive Device (Walker, Cane, Wheelchair, Crutches, etc.)? No PATIENT GENDER DATA: Female. status: : No status: NO. PATIENT RELEVANT IMPLANT DATA REVIEWED: Not Applicable RADIOLOGY DEPARTMENT: Ultrasound PERIPHERAL IV DATA: Not applicable SIGNED BY: Monika Jones RDMS, RVT August 11, 2022 1:36 PM [facility] 08-11-2022 Miscellaneous Notes Left message on patients voicemail with all information. (Ok per lifetime consent). Sandra Mattson MA ----- Message from Temi Rodrigez APRN.TUG BOAT CAPTAIN sent at 08/11/2022 2:48 PM EST ----- Fecal occult was negative. Continue to follow up with hematology. UA only showed a small amount of blood but no other signs of infection. documented in this encounter [facility] 08-11-2022 History of Presen t illness Narrative Radiology Service Progress Note PATIENT NAME: Key Zelaya DATE OF SERVICE: August 11, 2022 TIME: 1:36 PM PATIENT IDENTITY VERIFICATION COMPLETED USING TWO (2) IDENTIFIERS: Name and Date of confirmed by patient verbally. FALL SCREENING: Has the patient had 2 falls in the last year or 1 fall with injury or currently using an Ambulatory Assistive Device (Walker, Cane, Wheelchair, Crutches, etc.)? No PATIENT GENDER DATA: Female. status: : No status: NO. PATIENT RELEVANT IMPLANT DATA REVIEWED: Not Applicable RADIOLOGY DEPARTMENT: Ultrasound PERIPHERAL IV DATA: Not applicable SIGNED BY: Monika Jones RDMS, RVT August 11, 2022 1:36 PM documented in this encounter [facility] 08-08-2022 Miscellaneous Notes Patient is informed Lo Ma MA Referral faxed and no VM box. Lo Ma MA Patient lm on vm requesting to speak to nurse . She is asking if you faxed referral to [facility] . Please advise. Sandra Mattson MA documented in this encounter [facility] 08-03-2022 Note HNO ID: [id number] Author: Temi Rodrigez APRN.JOANNE Service: ? Author Type: Nurse Practitioner Type: Progress Notes Filed: 08/03/2022 9:21 AM Note Text: [facility] Temi Rodrigez APRN-TUG BOAT CAPTAIN [address] [place] [address] Dept Dept. Visit Date: August 03, 2022 Ms.Leann Shady Zelaya Date of : 1995 MRN/E #: [id number] Chief Complaint: Patient presents with: Establish Care Rectal Problem History of Present Illness Key Zelaya is a 27 year old female presents today as a new patient to establish care. I reviewed past medical, surgical, social, and family histories today and updated chart. Allergies, chronic medications, and supplements were also reviewed. She hasn't had a PCP since she was in high school. She would like to discuss blood in her stool today. She reports she hasn't had normal bowel movements for years but now it has been more diarrhea. She has seen blood in both her stool and in the toilet and is usually bright red. Had constipation as a child Started noticing blood in her teen years Never had a workup for it +mucous in stool now Just started a probiotic which seems to be helping some Caffeine only when she works- 2 servings daily Trying to eat healthy- fruits and veggies Avoids greasy, fatty foods, spicy foods. Avoid foods. Drinks plenty of water Does try to exercise a couple times a week She is a smoker- 1/2 ppd since she was 18 Has 2-3 beers on her days off. Can be up to 2-3 times a week. 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 Menstrual cycles are regular but are heavy Lasts for 10 days On vaginal ring HEMATOCHEZIA Duration of symptoms: 2 years Color of blood (bright red, maroon, etc): Bright red Black stools: No How often do bloody stools occur: 1-2 times every other month Diarrhea: Yes Constipation: No Painful bowel movements: Yes Visible or palpable hemorrhoids: No Fever: No Nausea: Yes Vomiting: Once the other morning after eating Abdominal Pain: Yes Location: LLQ Radiation: radiation to upper abdomen Describe the pain (sharp, dull, achy, crampy): aching When did the pain start: Ongoing Is it constant or does it come and go: constant If coming and going, how often does it come on: If coming and going, how long does it stay: Anything make it better: Not eating Anything make it worse:BM Heartburn: Yes Eating well: Yes Weight loss or gain: Yes, 4 pant sizes in the last 2 years Lightheadedness when stand up quickly: No Blood in urine: No Easy bruising: Yes Nosebleeds: No Gums bleeding: Yes Swollen glands: No Night sweats: No Fevers: No Heavy menses:Yes Previous history of blood in the stool: Yes Previous history of diverticulitis: NA Previous history of hemorrhoids: Yes Previous history of ulcerative colitis or Crohn's disease: No Family history of ulcerative colitis or Crohn's disease: No Previous history of colon polyps: NA Previous history of colon cancer: NA Family history of colon cancer: No Previous colonoscopy: No Previous upper endoscopy / EGD: No The history is provided by the patient. No sign language teacher was used. History reviewed. No pertinent past medical history. History reviewed. No pertinent surgical history. Social History Tobacco Use Smoking status: Every Day Packs/day: 0.50 Types: Cigarettes Smokeless tobacco: Never Substance Use Topics Alcohol use: Yes Drug use: Never Social History Social History Narrative Not on file Family History Reviewed Including Cardiac Diseases, Psychiatric Diseases, AND Substance Abuse Problem: Stroke Relation: Mother Age of Onset: (Not Specified) Problem: Heart Attack Relation: Mother Age of Onset: (Not Specified) Problem: COPD Relation: Father Age of Onset: (Not Specified) Problem: Diabetes Relation: Maternal Grandmother Age of Onset: (Not Specified) Problem: other (Bone cancer) Relation: Maternal Grandfather Age of Onset: (Not Specified) Problem: Diabetes Relation: Maternal Grandfather Age of Onset: (Not Specified) Problem: Breast Cancer Relation: Paternal Grandmother Age of Onset: (Not Specified) ALLERGIES No Known Allergies Current Outpatient Medications Medication Sig ELURYNG 0.12-0.015 mg/24 hr vaginal ring INSERT 1 RING IN VAGINA FOR 21 DAYS, REMOVE FOR 7 DAYS THEN INSERT NEW RING pantoprazole DR (PROTONIX) 20 mg tablet Take 1 tablet by mouth once daily. dicyclomine (BENTYL) 10 mg capsule Take 1 capsule by mouth before meals and at bedtime. No current facility-administered medications for this visit. Review of Systems Review of Systems Constitutional: Positive for fatigue and unexpected weight change (weight gain). Negative for activity change, appetite change, chills, diaphoresis and fever. HENT: Positive for postnasal drip, rhinorrhea and sneezing (more content not included)... [facility] 08-03-2022 Instructions Temi Rodrigez APRN.TUG BOAT CAPTAIN - 08/03/2022 8:30 AM EST Improving Your Health with Fiber This guide provides basic information to help you start increasing dietary fiber in your diet. These are general guidelines that may be tailored to meet your needs. Fiber is an important dietary substance to help support your health. Making changes in your current eating habits will help you eat more healthfully. Most fiber-containing foods are also good sources of vitamins, minerals, and antioxidants, which offer many health benefits. A registered dietitian can provide in-depth nutrition education to help you develop a personal action plan. What is fiber? Fiber is the structural part of plant foods--such as fruits, vegetables, and grains--that our bodies cannot digest or break down. There are two kinds of fiber: soluble and insoluble. Soluble fiber: dissolves in water to form a gummy gel. It can slow down the passage of food from the stomach to the intestine. Examples: dried beans, oats, barley, banana, potatoes, and soft parts of apples and pears Insoluble fiber: often referred to as roughage because it does not dissolve in water. It holds onto water, which helps produce softer, bulkier stools to help regulate bowel movements. Examples: whole bran, whole grain products, nuts, corn, carrots, grapes, berries, and peels of apples and pears What other things does fiber do? Research has shown that a diet rich in fiber is associated with many health benefits, including the followin. Lowers cholesterol--Soluble fiber has been shown to lower cholesterol by binding to bile (composed of cholesterol) and taking it out of the body. This may help reduce the risk of heart disease. 2. Better regulates blood sugar levels--A high-fiber meal slows down the digestion of food into the intestines, which may help to keep blood sugars from rising rapidly. 3. Weight control--A high-fiber diet may help keep you mendoza longer, which prevents overeating and hunger between meals. 4. May prevent intestinal cancer--Insoluble fiber increases the bulk and speed of food moving through the intestinal tract, which reduces time for harmful substances to build up. 5. Constipation--Constipation can often be relieved by increasing the fiber or roughage in your diet. Fiber works to help regulate bowel movements by pulling water into the colon to produce softer, bulkier stools. This action helps to promote better regularity. How much fiber should I eat? The recommendation is to consume about 20-35 grams of total fiber per day, with 10-15 grams from soluble fiber. This can be accomplished by choosing 6 ounces of grains (3 or more ounces from whole grains), 2 cups of vegetables, and 2 cups of fruit per day (based on a 2,000 calorie/day pattern). Note: Eating a high-fiber diet may interfere with the absorption and effectiveness of some medications. Speak to your doctor about which medications to take with caution and when to take them. Fiber also binds with certain nutrients and carries them out of the body. To avoid this, aim for the recommended 20-35 grams of fiber per day. Some studies indicate that up to 50 grams of dietary fiber may help control blood sugars for people with diabetes. When eating a high-fiber diet, be sure to drink at least eight glasses of fluid each day. Tips for increasing dietary fiber in your diet: Add fiber to your diet slowly. Too much fiber all at once may cause cramping, bloating, and constipation. When adding fiber to your diet, be sure to increase fluids (at least 64 ounces per day) to prevent constipation. Buy bread with 2-4 grams of dietary fiber per slice. Buy cereals with at least 5 grams of dietary fiber per serving. Choose cereals with a whole grain such as whole wheat or whole grain rolled oats. Choose raw fruits and vegetables in place of juice. Choose products that have a whole grain listed as the first ingredient, not enriched flour. Whole wheat flour is a whole grain--wheat flour is not. Try alternative fiber choices such as whole buckwheat, whole wheat couscous, quinoa, and bulgur. Popcorn is a whole grain. Serve it low-fat without butter for a healthier snack choice. Try whole wheat bread and whole wheat pastas. Sprinkle bran in soups, cereals, baked products, spaghetti sauce, ground meat, and casseroles. Bran also mixes well with orange juice. Use dried peas, beans, and legumes in main dishes, salads, or side dishes such as rice or pasta. Eat the skins of raw fruits and vegetables. Add dried fruit to yogurt, cereal, rice, and muffins. Try brown rice and whole grain pastas. Choose crackers with a whole grain listed as the first ingredient. Look for whole grain rye and wheat crackers. How to read a food label Food labels are standardized by the U.S. government's National Labeling and Education Act (NLEA). Nutrition labels and an ingredient list are required on most foods, so that you can make the best selection for a healthy lifestyle. Review the food label. Determine the total amount of fiber in this product or ask your dietitian or health care provider to show you how to read food labels and apply the information to your personal needs. In order for a product to be labeled high fiber, it must contain 5 grams or more of dietary fiber per serving. Fiber supplements Fiber supplements may be an option if you are not able to get enough fiber from your diet. Fiber supplements can be used to normalize both constipation and diarrhea. Check with your doctor before starting any kind of supplement. Read labels for fiber carefully. Drink at least 8 ounces of liquids with your supplement. Taking some fiber supplements without adequate liquids may cause the fiber to swell and may cause choking. Some fiber supplements to consider are Benefiber (hydrolyzed guar gum-soluble fiber), Metamucil (psyllium), Konsyl (psyllium), Citrucel (methylcellulose), Fibercon (calcium polycarbophil), and Fiberall (multiple sources of fiber). Psyllium husk and guar gum are soluble fibers. Consider keeping a food journal and tracking how much fiber you eat in a typical day. Use the fiber content chart in this handout as a guide to meeting your high fiber goal or check with www.NAL.usda.gov/fnic for additional information on the dietary fiber content of food. Food Category Food Serving Size Total Fiber (grams) Soluble Fiber (grams) Starches, Grains, Starchy vegetables Breads: Bagel-whole wheat Light white/wheat Dior-Whole wheat Pumpernickel Whole wheat [place] 3 1/2 inches 2 slices 7 inches slice slice slice 3 1 4 3 2 2 1 trace 1 1 trace 1 Cereals: Bran Flakes Cheerios Oatmeal Fiber One All Bran Kashi Heart to Heart 3/4 cup 1 1/4 cup 1 cup cooked 1/2 cup 2/3 cup 3/4 cup 5 4 4 14 13 5 trace 1 2 1 1 1 Grains: Barley Brown rice Pasta-whole wheat 1/2 cup cooked 1/2 cup 1/2 cup cooked 4 2 3 1 trace 1 Legumes and starchy vegetables: Garbanzo beans Kidney beans Lentils Potato (with skin) Potatoes, sweet Squash (winter) Green peas, cooked Velazquez beans [place], cooked 1/2 cup 1/2 cup 1/2 cup 1 medium 1/2 cup 1/2 cup 1/2 cup 1/2 cup 1/2 cup 4 6 5 3 4 3 4 7 2 1 3 1 1 2 2 1 3 trace Nuts and Seeds Almonds Peanuts [place] seeds Walnuts 1/4 cup 1/4 cup 1/4 cup 1/4 cup 3 3 3 2 1 1 1 trace Fruits Apple with skin Banana Blueberries Grapefruit [place] Pear with skin Prunes Strawberries 1 medium 1 medium 1 cup 1/2 cup 1 medium 1 medium 3 1 cup 3 2 2 1 3 4 2 4 1 1 trace 1 2 2 1 1 Vegetables, non-starchy Broccoli Trilla sprouts Cabbage-green Carrot Cauliflower Green beans Kale Spinach Squash (zucchini) 1/2 cup 1/2 cup 1 cup, fresh 1/2 cup cooked 1/2 cup cooked 1/2 cup 1/2 cup 1/2 cup 1/2 cup 3 4 2 2 1 2 3 2 1 1 2 1 1 trace 1 1 1 1 Copyright 4756-3639 The [facility]. All rights reserved. This information is provided by the [facility] and is not intended to replace the medical advice of your doctor or health care provider. Please consult your health care provider for advice about a specific medical condition. For additional health information, please contact the Center for Consumer Health Information at the [facility] or toll-free extension [phone]. If you prefer, you may visit [email or web address] or [email or web address]. This document was last reviewed on: 2009 index#[id number] Please read the Disclaimer at the end of this page. What are bloody stools? -- Stools is another word for bowel movements. If you have bloody stools, you might see bright red blood: ?On the toilet paper after wiping ?In the toilet after you go to the bathroom ?On the surface of or mixed in with your bowel movements In some cases, bloody stools look more like black tar. Stools that look like tar are usually caused by bleeding high up in the digestive system (figure 1). What causes bloody stools? -- The 2 most common causes are not usually serious: ?Hemorrhoids - These are swollen blood vessels in the anus. Hemorrhoids can itch or hurt. ?Anal fissures - These are tears in the skin on the anus. Sometimes, bloody stools are serious. They can be a sign of polyps (small growths), cancer, or other problems in the digestive system. What other symptoms should I watch for? -- These symptoms can help your doctor figure out what is causing your problem and if it is serious: ?Itching or pain in the anus ?Feelings of ripping or burning during bowel movements ?Fever, weight loss, and heavy sweating at night ?Diarrhea ?Feeling like you need to have a bowel movement, but not being able to go ?Belly pain ?Bowel movements that look black or dark red ?Changes in how often or how hard or soft your bowel movements are ?Bleeding that goes on for a long time or that comes back again and again Should I see a doctor or nurse? -- Yes. See your doctor or nurse right away if you notice any blood with your bowel movements. Most cases are not serious. But anyone with bloody stools should be seen by a doctor or nurse. Are there tests I should have? -- Your doctor or nurse will decide which tests you should have based on your age, other symptoms, and individual situation. Here are the most common tests doctors use to find the cause of bloody stools: ?Rectal exam - Your doctor will look at the outside of your anus. They will also use a finger to feel inside the opening. ?Anoscopy - In the office, your doctor will put a small tube into your anus. The tube goes a few inches into the rectum (the lower part of the large intestine). It has a light on it so the doctor can see inside. ?Sigmoidoscopy or colonoscopy - For these tests, the doctor puts a thin tube into your anus. Then, they gently push the tube into your large intestine. The large intestine is also called the colon. The tube has a camera attached to it, so the doctor can look inside your intestines. During these tests, the doctor can also take samples of tissue to look at under a microscope (figure 2). How are bloody stools treated? -- Treatment depends on what is causing your bloody stools. You might not need treatment. If you do, treatments might include: ?Fiber supplements and medicines to keep your bowel movements soft ?Sitting in warm water a few times a day for about 15 minutes ?Creams and medicines that go on or inside your anus. These help with pain, itching, and swelling. ?More serious medicines for diseases of the digestive system Can bloody stools be prevented? -- If you have hemorrhoids, you can reduce the chances of getting bloody stools again by drinking lots of water and eating lots of fiber. Fiber is common in fruits, vegetables, and breakfast cereal (table 1). You might also need medicines to prevent constipation (trouble having bowel movements). What if my child gets bloody stools? -- In children and babies, bloody stools can be a symptom of: ?Tears in the anus (anal fissures) from large or hard bowel movements ?A condition that makes it hard to digest milk or soy ?Infection by a virus or bacteria, or food poisoning ?Diseases that affect the digestive system ?Foods and medicines that look like blood but aren't (table 2) If you notice blood in your child's diaper or bowel movements, take them to see the doctor or nurse. GET HELP If you have symptoms of clinical depression, you can get help by doing one or more of the followin. Please talk with your doctor. 2. If you are already in treatment, make sure you contact and update your doctor or therapist. 3. Review additional options for care based on patient or provider preference: Central/Multiple Locations: [facility]: [address] [facility] [phone] Jose Patricia: [address] [address] [place] - [phone] [facility]: [address] [facility] [phone] [facility]: [address] [facility] [phone] [facility]: [address] [place] [address] (Medicaid only) [facility]: Multiple Locations - [phone] [facility] Department of Psychiatry & Psychology at [phone] (select Option 1) or [phone] (select Option 1) [facility]: Multiple Locations - [phone] (Medicaid only) [facility] - Multiple Locations - [phone] (Medicaid only) [facility] Multiple Locations - [phone] [facility]: Multiple Locations - [phone] [facility]: Multiple Locations - [phone] [place] Locations: [facility]: [address] [facility] - [phone] [facility]: [address] [address] [place] - [phone] Reina Mendoza PhD [facility] Associates: [address] [facility] - [phone] [facility] - [address] [facility] [address] [place] - [phone] Nena Alex MD: [address] [facility] - [phone] [facility] [address] [facility], [place] - [phone] [facility]: [address] [facility] - [phone] [facility] [place], [address] [place] [address] - [phone] [place] Locations: Kamini Ge [facility]: [address] [facility] [facility] - [phone] Reina Mendoza PhD [facility]: [address] [facility] - [phone] [facility] Services: [address] [facility] - [phone] [facility] [address] [facility] - [phone] [facility], [address] [address] - [phone] [facility] [place], [address] - [phone] [facility] Health: [address] [address] [place] [facility] [phone] [place] Locations: [facility] [address] [facility] [place] - [phone] [facility] Health Services [address], [place] - [phone] [facility] Psychiatry: [address], [place] - [phone] [facility]: [address], [place] - [phone] [facility] - [address] [facility], [place] - [phone] [place] Locations: [facility] - Kyree Park MD Psychiatry, Sleep Medicine - [address] [facility] - [phone] or [phone] Lindsay Silverman MD - [address] [facility] [phone] [facility] - JUVE Bone, [facility] - [address] - [phone] [facility] - [address] [facility] [phone] [facility] (NO Commercial Insurance accepted) - [address] [facility] [phone] [facility] - Navneet Webb, PCC, [facility] - [address] [facility] [phone] Colleen Dietrich, [facility] - [address] [facility] [phone] Thania Hyatt, [facility] - [address] [phone] Jesus Ray, PhD - [address] [phone] Lolis Fox, [facility] - [address] [phone] Daniella Boone, PCCS, [facility] (No Medicare, [facility]) - [address] - [phone] Nir Root [facility] - [address], [place] - [phone] Glen Rebolledo, [facility] - [address] [phone] For additional resources and information please call 2-1-1 or review the website: [email or web address] If you are feeling suicidal, please call [facility], , or the National Suicide Hotline , Call 601, or go to your nearest emergency room documented in this encounter [facility] 08-03-2022 History of Presen t illness Narrative Images from the original note were not included. [facility] Temi Rodrigez APRN-TUG BOAT CAPTAIN [address] [place] [address] Dept Dept. Visit Date: August 03, 2022 Ms.Leann Shady Zelaya Date of : 1995 MRN/E #: [id number] Chief Complaint: Patient presents with: Establish Care Rectal Problem History of Present Illness Key Zelaya is a 27 year old female presents today as a new patient to establish care. I reviewed past medical, surgical, social, and family histories today and updated chart. Allergies, chronic medications, and supplements were also reviewed. She hasn't had a PCP since she was in high school. She would like to discuss blood in her stool today. She reports she hasn't had normal bowel movements for years but now it has been more diarrhea. She has seen blood in both her stool and in the toilet and is usually bright red. Had constipation as a child Started noticing blood in her teen years Never had a workup for it +mucous in stool now Just started a probiotic which seems to be helping some Caffeine only when she works- 2 servings daily Trying to eat healthy- fruits and veggies Avoids greasy, fatty foods, spicy foods. Avoid foods. Drinks plenty of water Does try to exercise a couple times a week She is a smoker- 1/2 ppd since she was 18 Has 2-3 beers on her days off. Can be up to 2-3 times a week. 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 Menstrual cycles are regular but are heavy Lasts for 10 days On vaginal ring HEMATOCHEZIA Duration of symptoms: 2 years Color of blood (bright red, maroon, etc): Bright red Black stools: No How often do bloody stools occur: 1-2 times every other month Diarrhea: Yes Constipation: No Painful bowel movements: Yes Visible or palpable hemorrhoids: No Fever: No Nausea: Yes Vomiting: Once the other morning after eating Abdominal Pain: Yes Location: LLQ Radiation: radiation to upper abdomen Describe the pain (sharp, dull, achy, crampy): aching When did the pain start: Ongoing Is it constant or does it come and go: constant If coming and going, how often does it come on: If coming and going, how long does it stay: Anything make it better: Not eating Anything make it worse:BM Heartburn: Yes Eating well: Yes Weight loss or gain: Yes, 4 pant sizes in the last 2 years Lightheadedness when stand up quickly: No Blood in urine: No Easy bruising: Yes Nosebleeds: No Gums bleeding: Yes Swollen glands: No Night sweats: No Fevers: No Heavy menses:Yes Previous history of blood in the stool: Yes Previous history of diverticulitis: NA Previous history of hemorrhoids: Yes Previous history of ulcerative colitis or Crohn's disease: No Family history of ulcerative colitis or Crohn's disease: No Previous history of colon polyps: NA Previous history of colon cancer: NA Family history of colon cancer: No Previous colonoscopy: No Previous upper endoscopy / EGD: No The history is provided by the patient. No sign language teacher was used. History reviewed. No pertinent past medical history. History reviewed. No pertinent surgical history. Social History Tobacco Use Smoking status: Every Day Packs/day: 0.50 Types: Cigarettes Smokeless tobacco: Never Substance Use Topics Alcohol use: Yes Drug use: Never Social History Social History Narrative Not on file Family History Reviewed Including Cardiac Diseases, Psychiatric Diseases, & Substance Abuse Problem: Stroke Relation: Mother Age of Onset: (Not Specified) Problem: Heart Attack Relation: Mother Age of Onset: (Not Specified) Problem: COPD Relation: Father Age of Onset: (Not Specified) Problem: Diabetes Relation: Maternal Grandmother Age of Onset: (Not Specified) Problem: other (Bone cancer) Relation: Maternal Grandfather Age of Onset: (Not Specified) Problem: Diabetes Relation: Maternal Grandfather Age of Onset: (Not Specified) Problem: Breast Cancer Relation: Paternal Grandmother Age of Onset: (Not Specified) ALLERGIES No Known Allergies Current Outpatient Medications Medication Sig ELURYNG 0.12-0.015 mg/24 hr vaginal ring INSERT 1 RING IN VAGINA FOR 21 DAYS, REMOVE FOR 7 DAYS THEN INSERT NEW RING pantoprazole DR (PROTONIX) 20 mg tablet Take 1 tablet by mouth once daily. dicyclomine (BENTYL) 10 mg capsule Take 1 capsule by mouth before meals and at bedtime. No current facility-administered medications for this visit. Review of Systems Review of Systems Constitutional: Positive for fatigue and unexpected weight change (weight gain). Negative for activity change, appetite change, chills, diaphoresis and fever. HENT: Positive for postnasal drip, rhinorrhea and sneezing. Eyes: Negative for visual disturbance. Respiratory: Positive for wheezing (due to allergies). Negative for cough, chest tightness and shortness of breath. Cardiovascular: Negative for chest pain, palpitations and leg swelling. Gastrointestinal: Positive for abdominal pain, blood in stool, diarrhea, nausea and rectal pain. Negative for anal bleeding and constipation. Genitourinary: Negative for dysuria, frequency, hematuria and urgency. Musculoskeletal: Negative. Skin: Negative. Allergic/Immunologic: Positive for environmental allergies (Claritin). Neurological: Negative for dizziness, light-headedness and headaches. Hematological: Negative for adenopathy. Does not bruise/bleed easily. Psychiatric/Behavioral: Positive for dysphoric mood. Negative for sleep disturbance. The patient is nervous/anxious. Vital Signs BP 122/70 Pulse 79 Temp 97.7 Resp 18 Ht 5' 6 (1.68m) Wt 156 lb (70.8kg) SpO2 97% BMI 25.19 kg/(m^2). Physical Exam Vitals and nursing note reviewed. Constitutional: General: She is not in acute distress. Appearance: Normal appearance. She is well-groomed. Cardiovascular: Rate and Rhythm: Normal rate and regular rhythm. Heart sounds: Normal heart sounds. No murmur heard. Pulmonary: Effort: Pulmonary effort is normal. Breath sounds: Normal breath sounds and air entry. Abdominal: Palpations: There is no mass. Tenderness: There is generalized abdominal tenderness and tenderness in the left lower quadrant. There is no guarding. Negative signs include Mahoney's sign and McBurney's sign. Hernia: No hernia is present. Musculoskeletal: Cervical back: Neck supple. Skin: General: Skin is warm and dry. Neurological: Mental Status: She is alert and oriented to person, place, and time. Psychiatric: Mood and Affect: Mood and affect normal. Speech: Speech normal. Behavior: Behavior is cooperative. Cognition and Memory: Cognition normal. Visit Diagnoses (K92.1) Blood in stool (primary encounter diagnosis) (R19.5) Abnormal stools (R10.32) LLQ pain (R15.9, R15.2) Incontinence of feces with fecal urgency (R12) Heartburn (N92.0) Menorrhagia with regular cycle (F17.200) Smoker (Z13.31) Screening for depression Assessment and Plan 1. Blood in stool - ICD9: 578.1, ICD10: K92.1 (primary diagnosis) - Differential anal fissure, colitis, UC, Chron's, hemorrhoids, IBD - CONSULT TO GASTROENTEROLOGY - FECAL OCCULT BLOOD TEST - CBC + DIFF - COMP METABOLIC PANEL - IRON + TIBC - FERRITIN BLD - FOLATE SERUM - VITAMIN B12 BLOOD 2. Abnormal stools - ICD9: 787.7, ICD10: R19.5 - Increase fiber, continue probiotics - CONSULT TO GASTROENTEROLOGY - TSH BLD 3. LLQ pain - ICD9: 789.04, ICD10: R10.32 Etiology unclear Differential Diagnosis includes IBS, Constipation, IBD, Diverticulitis, Celiac sprue, Kidney stones/colic, Ovarian cyst, and Cystitis - Begin treatment with Protonix 20 mg QD - Labs of CBC with Diff, CMP, Iron/TIBC, Urine analysis, and TSH - Increase fiber in diet - Referral to Gastroenterology - Follow up in 4 weeks or sooner if worsening of symptoms - CONSULT TO GASTROENTEROLOGY - URINALYSIS WITH MICROSCOPIC, REFLEX CULTURE - US FEMALE PELVIS TRANSVAG - US FEMALE PELVIS TRANSABD COMPLETE 4. Incontinence of feces with fecal urgency - ICD9: 787.63, ICD10: R15.9, R15.2 - DICYCLOMINE 10 MG CAPSULE 5. Heartburn - ICD9: 787.1, ICD10: R12 - Diet changes, avoid eating within 3 hours of laying down, limit caffeine and alcohol. Smoking cessation encouraged. - PANTOPRAZOLE 20 MG TABLET,DELAYED RELEASE 6. Menorrhagia with regular cycle - ICD9: 626.2, ICD10: N92.0 - US FEMALE PELVIS TRANSVAG 7. Smoker - ICD9: 305.1, ICD10: F17.200 - Cessation encouraged. - Physiologic and physical aspects of tobacco addiction as well as strategies for quitting were discussed. - Counseling was given focusing on the harmful effects of this addiction especially given the patient's medical condition(s) which will be worsened because of the chemicals in tobacco. - Counseling was given 3-4 minutes. 8. Screening for depression - ICD9: V79.0, ICD10: Z13.31 - At risk- will address at next visit. No suicidal thoughts. - DEPRESSION SCREENING/ASSESSMENT Discussed above plan with patient and is agreeable with above plan. Follow up visit Return in about 4 weeks (around 08/31/2022) for abdominal pain. Temi Rodrigez APRN.CNP, signed on August 03, 2022 8:27 AM documented in this encounter [facility] 02-18-2021 Note HNO ID: [id number] Author: Addison Gutiérrez APRN.CNP Service: ? Author Type: Nurse Practitioner Type: Progress Notes Filed: 02/18/2021 8:09 AM Note Text: Patient is an uncomfortable appearing 25-year-old female with no past medical history presents the office today for multiple medical complaints. Patient states over the past several days she has had a progressively worse productive cough with green sputum, sore throat, worsening wheezing, shortness of breath worse with exertion and improves with rest, midsternal chest heaviness with no alleviating or worsening factors that resolves on its own spontaneously. Patient denies any injuries trauma or falls, abdominal pain, nausea, vomiting, diarrhea or constipation. Patient denies any fever, shaking, or chills. Patient denies any cardiac history, family history of sudden cardiac syndrome, personal history of asthma. Given patient's complaint presentation recommended patient go to emergency room for further evaluation. Patient does have wheezing lung sounds throughout all lung khan, remains hemodynamically stable during office visit, speaking in complete sentences no respiratory distress, however given symptoms and presentation and complaint I do believe a differential diagnosis of ACS, pulmonary embolism, aortic abdominal aneurysm, community-acquired pneumonia, asthma exacerbation is warranted. Patient is agreeable and will go to emergency room. Report was given to [facility] emergency room via their policy. Patient ambulated out of the office today under her own power in no distress. Addison Gutiérrez APRN.CNP [facility] documented [facility] Diagnosis LLQ pain Abdominal pain, left lower quadrant documented [facility] Diagnosis Iron deficiency- Primary Iron deficiency anemia, unspecified documented [facility] this [facility]* Diagnosis Blood in stool- Primary Iron deficiency Iron deficiency anemia, unspecified Abnormal stools Abnormal feces Incontinence of feces with fecal urgency Menorrhagia with regular cycle Excessive or frequent menstruation LLQ pain Abdominal pain, left lower quadrant documented in this encounter [facility] for referral (narrative)* Diagnostic Procedure Only (Routine) - Pending Review Specialty Diagnoses / Procedures Referred By Contac t Referred To Contact US IMAGING Diagnoses LLQ pain Procedures US FEMALE PELVIS TRANSABD COMPLETE US PELVIC NONOBSTETRIC REAL-TIME IMAGE COMPLETE Temi Rodirgez APRN.CNP [address] [place] [address] Us Imaging Referral ID Status Reason Start Date Expiration Date Visits Requested Visits Authorized [id number] Pending Review Auto-Generat ed Referral 08/03/2022 09/02/2023 1 1 * Diagnostic Procedure Only (Routine) - Pending Review Specialty Diagnoses / Procedures Referred By Contac t Referred To Contact US IMAGING Diagnoses LLQ pain Menorrhagia with regular cycle Procedures US FEMALE PELVIS TRANSVAG US TRANSVAGINAL Temi Rodrigez APRN.CNP [address] [place] [address] Us Imaging Referral ID Status Reason Start Date Expiration Date Visits Requested Visits Authorized [id number] Pending Review Auto-Generat ed Referral 08/03/2022 09/02/2023 1 1 * Consult, Test, Treat (Routine) - Authorized Specialty Diagnoses / Procedures Referred By Contac t Referred To Contact Diagnoses Blood in stool Abnormal stools LLQ pain Procedures CONSULT TO GASTROENTEROLOGY OFFICE/OUTPATIENT [facility] MDM 60-74 MINUTES Temi Rodrigez APRN.CNP [address] [place] [address] [facility] Referral ID Status Reason Start Date Expiration Date Visits Requested Visits Authorized [id number] Authorized PCP Requested Referral 08/03/2022 08/03/2023 1 1 [facility] for referral (narrative)* Diagnostic Procedure Only (Routine) - Closed Specialty Diagnoses / Procedures Referred By Contac t Referred To Contact US IMAGING Diagnoses LLQ pain Procedures US FEMALE PELVIS TRANSABD COMPLETE US PELVIC NONOBSTETRIC REAL-TIME IMAGE COMPLETE Temi Rodrigez APRN.CNP [address] [place] [address] Us Imaging Referral ID Status Reason Start Date Expiration Date V isits Requested Visits Authorized [id number] Closed Auto-Generate d Referral 08/03/2022 09/02/2023 1 1 [facility] for visit Narrative* Diagnostic Procedure Only (Routine) - Closed Specialty Diagnoses / Procedures Referred By Contac t Referred To Contact US IMAGING Diagnoses LLQ pain Procedures US FEMALE PELVIS TRANSABD COMPLETE US PELVIC NONOBSTETRIC REAL-TIME IMAGE COMPLETE Temi Rodrigez APRN.CNP [address] [place] [address] Us Imaging Referral ID Status Reason Start Date Expiration Date V isits Requested Visits Authorized [id number] Closed Auto-Generate d Referral 08/03/2022 09/02/2023 1 1 [facility] Summary Purpose Family History No Family History Records FoundNo Family History Records FoundNo Family History Records Found Advance Directives No Advanced Directives Records FoundNo Advanced Directives Records FoundNo Advanced Directives Records Found Additional Source Comments INFORMATION SOURCE (unrecogn ized section and content) DATE CREATED AUTHOR AUTHOR'S ORGANVALERIA ATION 03/29/2023 [facility] DATE CREATED AUTHOR AUTHOR'S ORGANVALERIA ATION 05/27/2023 [facility] Source Comments (unrecognize d section and content) In the event this informatio n is protected by the Federal Confidentiality of Alcohol and Drug Abuse Patient Records regulations: The Federal rules restrict any use of the information to criminally investigate or prosecute any alcohol or drug abuse patient.[facility] the event this information is protected by the Federal Confidentiality of Alcohol and Drug Abuse Patient Records regulations: The Federal rules restrict any use of the information to criminally investigate or prosecute any alcohol or drug abuse patient.[facility] Center[facility] the event this information is protected by the Federal Confidentiality of Alcohol and Drug Abuse Patient Records regulations: The Federal rules restrict any use of the information to criminally investigate or prosecute any alcohol or drug abuse patient.[facility] Center[facility] the event this information is protected by the Federal Confidentiality of Alcohol and Drug Abuse Patient Records regulations: The Federal rules restrict any use of the information to criminally investigate or prosecute any alcohol or drug abuse patient.[facility] CenterIn the event this information is protected by the Federal Confidentiality of Alcohol and Drug Abuse Patient Records regulations: The Federal rules restrict any use of the information to criminally investigate or prosecute any alcohol or drug abuse patient.[facility] CenterIn the event this information is protected by the Federal Confidentiality of Alcohol and Drug Abuse Patient Records regulations: The Federal rules restrict any use of the information to criminally investigate or prosecute any alcohol or drug abuse patient.[facility] CenterIn the event this information is protected by the Federal Confidentiality of Alcohol and Drug Abuse Patient Records regulations: The Federal rules restrict any use of the information to criminally investigate or prosecute any alcohol or drug abuse patient.[facility] CenterIn the event this information is protected by the Federal Confidentiality of Alcohol and Drug Abuse Patient Records regulations: The Federal rules restrict any use of the information to criminally investigate or prosecute any alcohol or drug abuse patient.[facility] Reason for Visit (unrecogniz ed section and content) Reason Comments Patient Question Reason Comments Results Reason Comments Results Orders Reason Comments Follow Up Just had some in her stool for the first Sunday and medication is showing improvement Reason Onset Date Comments ED outreach 03/28/2023 [place] [facility] [facility]/23 Care Teams (unrecognized sec tion and content) Med Surg Nurse Relationship Specialty Start Date End Date Temi Rodrigez, ART INSTRUCTOR.TUG BOAT CAPTAIN [address] [place] [address] PCP - General Family Medicine 08/03/22 Med Surg Nurse Relationship Specialty Start Date End Date Temi Rodrigez, ART INSTRUCTOR.TUG BOAT CAPTAIN [address] [place] [address] PCP - General Family Medicine 08/03/22 Med Surg Nurse Relationship Specialty Start Date End Date Temi Rodrigez, ART INSTRUCTOR.TUG BOAT CAPTAIN [address] [place] [address] PCP - General Family Medicine 08/03/22 Med Surg Nurse Relationship Specialty Start Date End Date Temi Rodrigez, ART INSTRUCTOR.TUG BOAT CAPTAIN [address] [place] [address] PCP - General Family Medicine 08/03/22 Med Surg Nurse Relationship Specialty Start Date End Date Temi Rodrigez, ART INSTRUCTOR.TUG BOAT CAPTAIN [address] [place] [address] PCP - General Family Medicine 08/03/22 Med Surg Nurse Relationship Specialty Start Date End Date Temi Rodrigez APRN.TUG BOAT CAPTAIN [address] [place] [address] PCP - General Family Medicine 08/03/22 FOR RECORDS PERTAINING TO PATIENTS WHO ARE OR HAVE BEEN ENROLLED IN A CHEMICAL DEPENDENCY/SUBSTANCEABUSE PROGRAM, SOME INFORMATION MAY BE OMITTED. This clinical summary was aggregated from multiple sources. Caution should be exercised in using it in the provision of clinical care. This summary normalizes information from multiple sources, and as a consequence, information in this document may materially change the coding, format and clinical context of patient data. In addition, data may be omitted in some cases. CLINICAL DECISIONS SHOULD BE BASED ON THE PRIMARY CLINICAL RECORDS. [email or web address] [facility]. provides no warranty or guarantee of the accuracy or completeness of information in this document.
== END | disposition home or self-care (01) ==
LOC: LABSPEC 16:10
PROVIDERS: PCP Nurse Practitioner Family; Referring Provider Advanced Practice Midwife; Visit Provider Advanced Practice Midwife
DX: Z34.90 Encounter for supervision of normal pregnancy, unspecified, unspecified trimester (principal)
CPT/HCPCS: 87081; 87653

== ENCOUNTER 2023-10-20 01:30 | Inpatient (IN) | payer OTHER, SELFPAY ==
[2023-10-20] VITALS (53 sets, daily range): BP systolic 110–128; BP diastolic 55–80; PULSE 65–101; RESP 14–18; TEMP 36.6–37.8; O2SAT 80–100; BMI 28.7
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
[2023-10-20 01:38] LABS: ROM Internal Control Test YES-OK TO RESULT pt. (Internal QC); ROM Patient Test Negative (Negative); Record Kit Lot#, ROM+ K1409
[2023-10-20 02:05] LABS: Absolute Lymphocyte Count 2.24 X10^3/uL (0.83-4.51); Absolute Neutrophil Count 10.7 X10^3/uL (2.0-7.7); Basophil# 0.05 X10^3/uL; Basophil% 0.4 % (0-1); Eosinophil# 0.12 X10^3/uL; Eosinophils% 0.8 % (0-5); Hematocrit 39.2 % (37-47); Hemoglobin 12.7 g/dL (12.0-15.0); Lymphocyte # 2.24 X10^3/ul (0.83-4.51); Lymphocyte % 15.8 % (19-41); Mean Corp Hgb Conc 32.4 g/dL (32-36); Mean Corpuscular Hgb 27.8 pg (27.0-32.0); Mean Corpuscular Volume 85.8 fL (81-99); Mean Platelet Vol. 9.6 fl (6.2-12.0); Monocyte# 1.03 X10^3/uL; Monocyte% 7.2 % (0-10); NRBC Flagged by Analyzer 0 % (0-5); Neutrophil # 10.66 X10^3/uL (2.7-7.7); Platelet Count 345 K/mm3 (150-450); RBC Distribution Width CV 15.7 % (11.6-14.6); RBC Distribution Width SD 48.4 fl (35.1-43.9); Red Blood Count 4.57 M/mm3 (4.2-5.4); White Blood Count 14.2 K/mm3 (4.4-11.0)
[2023-10-20 04:27] LABS: Syphilis Antibodies Non-reactive
[2023-10-20] MEDS: Lactated Ringers 1,000 ML 50 ML IV (07:30)
[2023-10-20] MEDS: Ondansetron 4 MG/2 ML Vial IV (09:48)
[2023-10-20] MEDS: 0.9% Saline Lock 10 ML Syringe IV (09:49)
[2023-10-20] MEDS: Oxytocin 15 Units/NS 250ml 15 UNITS/250 ML IV.SOLN 336 UNITS IV (12:25)
[2023-10-20] MEDS: Oxytocin 15 Units/NS 250ml 15 UNITS/250 ML IV.SOLN 83 UNITS IV (12:55)
--- NOTE | 2023-10-20 13:01 | EX.PCM.OBRPT ---
Assessment & Plan (1) : QUALIFIERS: Weeks of gestation: 39 weeks Qualified Code(s): Z3A.39 - 39 weeks gestation of COMMENT: gbs neg, LR NIPT. Declines carrier, nl anatomy consistent SELINA (2) Supervision of high-risk : QUALIFIERS: Trimester: second trimester Qualified Code(s): O09.92 - Supervision of high risk , unspecified, second trimester COMMENT: PRRG1 GIRL!! clarissa SELINA 10/24/23 BF:Willian (3) Asthma: COMMENT: no medications. (4) GERD (gastroesophageal reflux disease): QUALIFIERS: Esophagitis presence: without esophagitis Qualified Code(s): K21.9 - Gastro-esophageal reflux disease without esophagitis COMMENT: pepcid recommended (5) Vaginal delivery: COMMENT: SM 40 IAL girl shorty Maternal Data Information SELINA Calculator Estimated Delivery Date Method Current WG Current Estimate 10/22/23 Ultrasound #1 39w 5d Other Estimates 10/22/23 Manual 39w 5d Vaginal Delivery Operative Information Date of Procedure: 10/20/23 Pre-Operative Diagnosis: see a/p diagnoses Post-Operative Diagnosis: same Surgery / Procedure Performed: Spontaneous Vaginal Delivery Type of Anesthesia: Local with 1% Lidocaine Special Medications: none Estimated Blood Loss: 200 Fluids Replaced: crystalloid Findings Description of Procedure: Patient began pushing and delivered the head in the HIWOT presentation. The head was delivered atraumatically . The anterior and posterior shoulders delivered without complication followed by the rest of the and the infant was placed on the maternal abdomen. Delayed cord clamping was employed for approximately 60 seconds. Cord was clamped and cut and gentle traction was applied to the cord and the placenta delivered spontaneously immediately following it was noted to be intact with three-vessel cord. The perineum and vagina were inspected and after injecting with lidocaine because it was noted to have a second degree perineal laceration which was repaired in the usual fashion with 3-0 vicryl rapide. . EBL was 200 cc. Patient and infant tolerated delivery well. Amniotic Fluid Description: Thick meconium Placental Delivery Description: Spontaneous Placenta Disposition: [facility] Cord Vessel Description: 3 Vessels Cord Entanglement: None Delayed Cord Clamping: Yes Post Vaginal Delivery Medications Given After Delivery: IV Pitocin Episiotomy Description: None Complication Complications: None Procedures Urinary/Genital [id number]: [id number] Vaginal Delivery [facility]
--- NOTE | 2023-10-20 13:09 | DCINST_ITS ---
Discharge Instructions Diet Discharge Diet: No restrictions Activity Discharge Activity: Return to Normal Activity, May Not Drive (while taking narcotic pain medications.) and May Shower May resume sexual activity in: 4-6 weeks Dressing / Incision Call your doctor if your incision/area has: Continuous Slow Oozing, Sudden Increased Bleeding, Increased Pain/ Swelling, Increased Redness and Foul Smelling Discharge Follow Up Care Please Follow Up With: Daphnie Lockett MD When: Call [phone] to make an appointment with your doctor in 6 weeks. If you had elevated blood pressure or 4th degree laceration, you will need to be seen in 2 weeks. Test Results: Test results from this visit will be discussed in further detail at your follow- up appointment, if applicable. Discharge Plan Admission Admit Date/Time: 10/20/23 01:30 Attending Provider: Daphnie Lockett Primary Care Provider: Temi Rice NP Discharge Orders/Prescriptions Prescriptions: No Action One A Day Women's DHA 28 mg iron- 800 mcg combo pack PO famotidine [Pepcid] 20 mg tablet 20 mg PO DAILY Qty: 30 6RF Referrals / Follow Up: Temi Rice NP, [employer] [Primary Care Provider] - Disposition Disposition (needs filled in before D/C Order can be placed): Home, Self Care
[2023-10-20] MEDS: Acetaminophen 500 MG Tablet 1000 MG PO (13:57)
[2023-10-20] MEDS: Lidocaine 1% (20 ml mdv) 20 ML Vial 200 ML INFILT (13:58)
[2023-10-21 01:07] VITALS: BP 115/65; PULSE 60; RESP 16
[2023-10-21 04:43] VITALS: BP 123/71; PULSE 54; RESP 16
--- NOTE | 2023-10-21 06:39 | PCM.PN.OB ---
Subjective Subjective Patient doing well without complaints. Tolerating PO. Ambulating and voiding without difficulty. feeding well. Denies chest pain, shortness of breath, calf pain/swelling, fevers, chills, lightheadedness. Objective Data Objective Data Vital Signs: Vital Signs Temp Pulse Resp BP Pulse Ox O2 Del Method 97.9 F 54 L 16 123/71 H 97 Room Air 10/20/23 20:26 10/21/23 04:43 10/21/23 04:43 10/21/23 04:43 10/20/23 14:27 10/21/23 04:43 Oxygen Delivery Method Room Air Weight: 178 lb Body Mass Index (BMI) 28.7 Intake & Output: Intake and Output for Last 24 Hours 10/19/23 10/20/23 10/21/23 23:59 23:59 23:59 Intake Total 418.83 / 418.83 Output Total 800 / 800 Balance -381.17 / -381.17 Lab / Micro Data 10/20/23 01:45 ROS Constitutional Constitutional: Reports systems reviewed and no addt'l complaints, except as documented Cardiovascular Cardiovascular: Reports systems reviewed and no addt'l complaints, except as documented Respiratory/Chest Respiratory/Chest: Reports systems reviewed and no addt'l complaints, except as documented Gastrointestinal Gastrointestinal: Reports systems reviewed and no addt'l complaints, except as documented Physical Exam Const alert, oriented x3 and no apparent distress HEENT Head and Scalp: atraumatic Resp normal respiratory effort GI soft to palpation and non-tender Bimanual Exam - Vag & Uterus: uterus non-tender Uterus Palpation: uterus fundus firm (below Umbilicus) Assessment & Plan (1) Vaginal delivery: COMMENT: SM 40 IAL girl shorty PLAN: Plan s/p PPD # 1 1. routine post delivery care 2. breast feeding- support given 3. rh positive 4. rubella immune
[2023-10-21 07:55] VITALS: BP 127/87; PULSE 80; RESP 16; TEMP 36.3; O2SAT 98
[2023-10-21 12:55] VITALS: BP 116/81; PULSE 70; RESP 16; TEMP 36.7; O2SAT 98
== END 2023-10-21 14:00 | disposition home or self-care (01) | DRG 807 ==
LOC: WPOUT 01:31 → WP 01:31
PROVIDERS: Admitting Provider Obstetrics & Gynecology; PCP Nurse Practitioner Family; Referring Provider Obstetrics & Gynecology; Visit Provider Obstetrics & Gynecology
DX: O76 Abnormality in fetal heart rate and rhythm complicating labor and delivery (principal); Z37.0 Single live birth; F17.210 Nicotine dependence, cigarettes, uncomplicated; J45.909 Unspecified asthma, uncomplicated; K21.9 Gastro-esophageal reflux disease without esophagitis; K58.9 Irritable bowel syndrome, unspecified; O99.62 Diseases of the digestive system complicating childbirth; O70.1 Second degree perineal laceration during delivery; O99.52 Diseases of the respiratory system complicating childbirth; O77.0 Labor and delivery complicated by meconium in amniotic fluid; O99.334 Smoking (tobacco) complicating childbirth; Z3A.39 39 weeks gestation of pregnancy; Z81.3 Family history of other psychoactive substance abuse and dependence; Z91.410 Personal history of adult physical and sexual abuse
CPT/HCPCS: 59025; 59050; 84112; 85025; 86780; 86850; 86900; 86901; 99221; J7120; A4216; G0378; J2405

== ENCOUNTER → 2025-01-08 | Outpatient (CLI) | payer OTHER, SELFPAY ==
--- OUTSIDE RECORDS SUMMARY | 2025-01-08 21:23 | XMS RPT_ITS | CCD ---
Author Organization [facility] Care Team Providers Care Molecular Pathologist Name Role Phone Queden LOADING SUPERVISOR.HAND ALTERATIONS TAILOR, Temi A Primary Care Provider Care Physician, No Primary Primary Care Provider Unavailable Care Physician, No Primary Referring Provider Un available Friend, Dr. Lei Attending Provider [phone] Queden LEARNING ENGINEER, LEARNING ENGINEER-C Temi Primary Care Provider Queden LEARNING ENGINEER, LEARNING ENGINEER-C Temi Referring Provider Friend, Dr. Lei Other Provider Friend, Dr. Lei Attending Provider JOSUE Turner Attending Provider QUEDEN, TEMI A Attending Unavailable QUEDEN, TEMI A Primary Care Unavailable QUEDEN, TEMI A Attending Unavailable QUEDEN, ETMI A Primary Care Unavailable QUEDEN, TEMI A Referring Unavailable QUEDEN, TEMI A Primary Care Unavailable QUEDEN, TEMI A Primary Care Unavailable QUEDEN, TEMI A Referring Unavailable QUEDEN, TEMI A Primary Care Unavailable QUEDEN, TEMI A Referring Unavailable NO PRIMARY CARE, Primary Care Unavailable LORRAINE YEAGER Referring Unavailable SAIRA BURNETT Attending Unavailable Queden LEARNING ENGINEER, LEARNING ENGINEER-C Temi Primary Care Provider Quewiley LEARNING ENGINEER, LEARNING ENGINEER-C Temi Referring Provider JOSUE Castano Attending Provider [phone] Shobha LEARNING ENGINEER, LEARNING ENGINEER-C Lorraine Attending Provider JOSUE Turner Attending Provider Care Physician, No Primary Primary Care Provider Unavailable Care Physician, No Primary Referring Provider Un available Friend, Dr. Quique Attending Provider [phone] Colleen Caldwell Attending Provider Dr. Daphnie Gaspar Attending Provider Queden LEARNING ENGINEER, LEARNING ENGINEER-C Temi Primary Care Provider Queden LEARNING ENGINEER, LEARNING ENGINEER-C Temi Referring Provider JOSUE Turner Attending Provider Care Physician, No Primary Primary Care Provider Unavailable Care Physician, No Primary Referring Provider Un available Rodolfo, Dr. Lei Attending Provider [phone] Colleen Caldwell Attending Provider [phone] Dr. Daphnie Gaspar Attending Provider JOSUE Castano Attending Provider JOSUE Castano Referring Provider JOSUE Castano Other Provider Queden LEARNING ENGINEER, LEARNING ENGINEER-C Temi Primary Care Provider Queden LEARNING ENGINEER, LEARNING ENGINEER-C Temi Referring Provider JOSUE Turner Attending Provider Bolton LEARNING ENGINEER, LEARNING ENGINEER-C Lorraine Attending Provider Dr. Daphnie Gaspar Admit Provider Dr. Daphnie Gaspar Referring Provider Dr. Daphnie Gaspar Other Provider Queden LEARNING ENGINEER, Temi Referring Unavailable Queden LEARNING ENGINEER, Temi Primary Care Unavailable Quique Reynolds Attending Unavailable Ani Whitney Attending Unavailable Queden LEARNING ENGINEER, Temi Referring Unavailable Queden LEARNING ENGINEER, Temi Primary Care Unavailable Queden LEARNING ENGINEER-C, Temi Primary Care Provider Queden LEARNING ENGINEER-C, Temi Referring Provider Devonte MOREAU-CAni Attending Provider Medications Current Medications Medication Drug Class(es) Dates Sig (Normalized) Sig (Original) benzonatate 100 mg oral capsule (1 source) Non-narcotic Antitussive Start: 02-18-2021 take 200 mg by mouth three times daily as needed Benzonatate Active 200 MG PO 3 TIMES DAILY NEEDED February 18, 2021 12:00am 21 day ethinyl estradiol 0.650043 mg/hr / etonogestrel 0.005 mg/hr vaginal system (19 sources) Progestin, Estrogen Start: 01-08-2025 Etonogestrel-Ethi nyl Estradiol (Nuvaring) 0.12-0.015 mg/24 hr ring Active 1 NMA VAGINAL every 4 weeks January 08, 2025 10:08am leave in place for 3 weeks of a 4-week cycle Start: 07-16-2022 ELURYNG 0.12-0 .015 mg/24 hr vaginal ring INSERT 1 RING IN VAGINA FOR 21 DAYS, REMOVE FOR 7 DAYS THEN INSERT NEW RING 0 07/16/2022 Active Start: 09-16-2020 End: 03-14-2023 Etonogestrel-Ethinyl Estradi ol 1 EACH ring Discontinued 1 NMA VG DAILY September 16, 2020 1:00am March 14, 2023 3:06pm Start: 09-16-2020 Etonogestrel-E thinyl Estradiol Active 1 EACH VG September 16, 2020 1:00am Comment on above: INSERT 1 RING IN VAG SP FOR 21 DAYS, REMOVE FOR 7 DAYS THEN INSERT NEW RING Completed/Discontinued Medications Medication Drug Class(es) Dates Sig (Normalized) Sig (Original) [id number] 200 actuat albuterol 0.09 mg/actuat metered dose inhaler (17 sources) beta2-Adrenergic Agonist Start: 02-18-2021 End: 05-07-2023 Albuterol Sulfate (Ventolin Hfa) 90 mcg/actuation HFA aerosol inhaler Discontinued 1 - 2 NMA INHALATION EVERY 4 HOURS NEEDED as needed for Wheezing March 14, 2023 3:18pm May 07, 2023 11:12am Start: 02-18-2021 End: 05-07-2023 take 1 puff(s) by inhalation every four hours as needed Albuterol Sulfate (Ventolin Hfa) 90 mcg/actuation HFA aerosol inhaler Discontinued 1 - 2 PUFF INHALATION EVERY 4 HOURS NEEDED March 14, 2023 3:18pm May 07, 2023 11:12am colestipol hydrochloride 1000 mg oral tablet (1 source) Bile Acid Sequestrant Start: 06-04-2024 End: 01-08-2025 Colestipol 1 gram tablet Discontinued 1 g PO BEDTIME June 04, 2024 1:00am January 08, 2025 9:50am dicyclomine hydrochloride 10 mg oral capsule (18 sources) Anticholinergic Start: 08-03-2022 End: 05-07-2023 take 1 capsule by mouth twice daily Dicyclomine 10 mg capsule Discontinued 10 mg PO TWICE A DAY August 18, 2022 1:00am May 07, 2023 11:12am Comment on above: Take 1 capsule by mo [facility] before meals and at bedtime. Etonogestrel-Ethiny l Estradiol (Nuvaring) 0.12-0.015 mg/24 hr ring (1 source) Start: 11-26-2023 End: 01-08-2025 Etonogestrel-Ethin yl Estradiol (Nuvaring) 0.12-0.015 mg/24 hr ring Discontinued 1 NMA VAGINAL every 4 weeks November 26, 2023 12:00am January 08, 2025 10:09am leave in place for 3 weeks of a 4-week cycle famotidine 20 mg oral tablet (5 sources) Histamine-2 Receptor Antagonist Start: 08-02-2023 End: 11-26-2023 take 1 tablet by mouth once daily Famotidine (Pepcid) 20 mg tablet Discontinued 20 mg PO DAILY August 02, 2023 1:00am November 26, 2023 10:25am 24 hr ferrous sulfate 142 mg extended release oral tablet (4 sources) Start: 08-12-2022 take 1 tablet by mouth once daily Ferrous Sulfate (SLOW FE) 142 mg (45 mg iron) TbER Indications: Iron deficiency Take 1 tablet by mouth once daily. 30 tablet 2 08/12/2022 Active Comment on above: Take 1 tablet by antione once daily. hydrocortisone acetate 30 mg rectal suppository (1 source) Corticosteroid Start: 12-07-2023 End: 01-08-2025 Hydrocortisone Acetate 30 mg suppository Discontinued 25 mg RC TWICE A DAY December 07, 2023 1:06pm January 08, 2025 9:49am Hydrocortisone Acetate 30 mg suppository (1 source) Start: 12-06-2023 End: 12-07-2023 Hydrocortisone Acetate 30 mg suppository Discontinued 30 mg RC TWICE A DAY December 06, 2023 12:00am December 07, 2023 1:05pm Sceeks-Fmmdekhd-Tga lase (Zenpep) 40,000-126,000- 168,000 unit capsule,delayed release(DR/EC) (8 sources) Start: 01-31-2023 End: 05-07-2023 take 1 capsule by mouth at mealtime Euxaui-Glniyvhc-Rb ylase (Zenpep) 40,000-126,000- 168,000 unit capsule,delayed release(DR/EC) Discontinued 0 PO .COMPLEX 320 January 31, 2023 12:00am May 07, 2023 11:12am take 1-2 with meals and one with snacks Start: 01-31-2023 End: 05-07-2023 take 1 capsule by mouth at mealtime Jzgcya-Hygskwiq-Lhzikdl (Zenpep) 40,000-126,000- 168,000 unit capsule,delayed release(DR/EC) Discontinued 0 PO .COMPLEX 320 January 30, 2023 11:00pm May 07, 2023 10:12am take 1-2 with meals and one with snacks Start: 01-31-2023 take 1 capsule by mo ut at mealtime Byxahw-Nmzpolxc-Wzauqds (Zenpep) 40,000-126,000- 168,000 unit capsule,delayed release(DR/EC) Active 0 PO .COMPLEX 320 January 31, 2023 12:00am take 1-2 with meals and one with snacks nitrofurantoin, macrocrystals 25 mg / nitrofurantoin, monohydrate 75 mg oral capsule (4 sources) Nitrofuran Antibacterial Start: 09-25-2023 End: 10-20-2023 take 1 capsule by mouth every twelve hours at mealtime Nitrofurantoin Monohyd/M-Cryst (Macrobid) 100 mg capsule Discontinued 100 mg PO Q12H 10 5 September 25, 2023 12:00am October 20, 2023 12:58am must administer with a meal/food pantoprazole 20 mg delayed release oral tablet (18 sources) Proton Pump Inhibitor Start: 08-03-2022 End: 05-07-2023 take 1 tablet by mouth once daily Pantoprazole 20 mg tablet,delayed release (DR/EC) Discontinued 20 mg PO DAILY August 18, 2022 1:00am May 07, 2023 11:12am Comment on above: Take 1 tablet by antione th once daily. Eir66-Sx-Jr9-Dfa-Oic -Fish Oil (4 sources) Start: 05-07-2023 End: 05-07-2023 Vbq76-We-Ks9-Uxz-Xf a-Fish Oil Discontinued TABLET PO May 07, 2023 12:00am May 07, 2023 11:14am Start: 05-07-2023 End: 05-07-2023 Bji31-Fd-Py6-Tao-Dbs-Mihs Oi l Discontinued TABLET PO May 06, 2023 11:00pm May 07, 2023 10:14am Fdu93-To-Ym6-Hgr-Rrp-Zdzv Oi l 400 mcg-35 mg -25 mg-5 mg tablet,chewable (1 source) Start: 05-07-2023 End: 05-07-2023 Gek96-Nl-Ie4-Gol-Gwk-Mwyl Oi l 400 mcg-35 mg -25 mg-5 mg tablet,chewable Discontinued {tbl} PO May 07, 2023 12:00am May 07, 2023 11:14am predniSONE 20 mg oral tablet (1 source) Start: 06-04-2024 End: 01-08-2025 take 2 tablets by mouth once daily Prednisone 20 mg tablet Discontinued 40 mg PO daily 60 June 04, 2024 1:00am January 08, 2025 9:49am Wjlgzp44-Uumd Fum-Folic Ac-Om3 (One A Day Women's Dha) 28 mg iron- 800 mcg combo pack (5 sources) Start: 05-07-2023 End: 11-26-2023 Urwtrd79-Bzag Fum-Folic Ac-Om3 (One A Day Women's Dha) 28 mg iron- 800 mcg combo pack Discontinued NMA PO May 07, 2023 12:00am November 26, 2023 10:25am Start: 05-07-2023 Trddec76-Seit Fum-Folic Ac-Om3 (One A Day Women's Dha) 28 mg iron- 800 mcg combo pack Active PKG PO May 07, 2023 12:00am Start: 05-07-2023 Zhobfs96-Epfg Fum-Folic Ac-Om3 (One A Day Women's Dha) 28 mg iron- 800 mcg combo pack Active PKG PO May 06, 2023 11:00pm rifAXIMin 550 mg oral tablet (8 sources) Rifamycin Antibacterial Start: 01-31-2023 End: 02-14-2023 take 1 tablet by mouth three times daily Rifaximin (Xifaxan) 550 mg tablet Discontinued 550 mg PO THREE TIMES A DAY 42 January 31, 2023 12:00am February 13, 2023 12:00am February 14, 2023 12:03am Problems Active Problems Problem Classification Problem Date Documented Da te Episodic/Chronic Acute bronchitis (7 sources) Acute bronchitis co-occurrent with wheeze; Translations: [Acute bronchitis, unspecified] 02-18-2021 Episodic Asthma (20 sources) Asthma; Translations: [Unspecified asthma, uncomplicated] 03-14-2023 Chronic Comment on above: no medications. Esophageal disorders (20 sources) Gastroesophageal reflux disease; Translations: [Gastro-esophageal reflux disease without esophagitis] 08-02-2023 Chronic Comment on above: pepcid recommended Gastrointestinal hemorrhage (20 sources) Hematochezia; Translations: [Melena] Onset: 3 Episodic Hemorrhage during ; abruptio placenta; placenta previa (9 sources) Threatened miscarriage; Translations: [Threatened ] 02-26-2023 Episodic Menstrual disorders (16 sources) Menorrhagia; Translations: [Excessive and frequent menstruation with regular cycle] Onset: 3 Chronic Noninfectious gastroenteritis (18 sources) Colitis; Translations: [Noninfective gastroenteritis and colitis, unspecified] Onset: 3 08-03-2022 Episodic Nutritional deficiencies (2 sources) Iron deficiency; Translations: [Iron deficiency] Episodic Other complications of ; puerperium affecting management of mother (1 source) Late heart deceleration 10-20-2023 Episodic Comment on above: admit for labor Other complications of (7 sources) High risk ; Translations: [Supervision of high risk , unspecified, unspecified trimester] 03-14-2023 Episodic Comment on above: PRRG1 GIRL!! natalee ne SELINA 10/24/23 BF:Willian Other complications of (20 sources) Supervision of high risk , unspecified, unspecified trimester; Translations: [Supervision of unspecified high-risk ] 03-14-2023 Episodic Other complications of (4 sources) Urinary tract infection in ; Translations: [Unspecified infection of urinary tract in , unspecified trimester] 09-25-2023 Episodic Other complications of (5 sources) Unspecified infection of urinary tract in , unspecified trimester; Translations: [Infections of genitourinary tract in , unspecified as to episode of care or not applicable] 09-25-2023 Episodic Other gastrointestinal disorders (7 sources) Irritable bowel syndrome; Translations: [Irritable bowel syndrome without diarrhea] 03-14-2023 Chronic Other gastrointestinal disorders (20 sources) Irritable bowel syndrome without diarrhea; Translations: [Irritable bowel syndrome] 03-14-2023 Chronic Other gastrointestinal disorders (1 source) Diarrhea; Translations: [Diarrhea, unspecified] 06-04-2024 Episodic Other and delivery including normal (20 sources) ; Translations: [Encounter for supervision of normal , unspecified, unspecified trimester] 02-26-2023 Episodic Comment on above: SM 41 IAL girl j osie gbs neg, LR NIPT. De clines carrier, nl anatomy consistent SELINA Residual codes; unclassified (7 sources) Family history of substance abuse; Translations: [Family history of other substance abuse and dependence] 03-15-2023 Episodic Comment on above: drug tox with NOB, n egative tox screen. Residual codes; unclassified (7 sources) Family history of mental disorder; Translations: [Family history of other substance abuse and dependence] 03-14-2023 Episodic Comment on above: FOB clean x5 years f rom meth. denies needing additional support/interventions Residual codes; unclassified (7 sources) History of violent behavior toward others; Translations: [Personal history of other specified conditions] 03-14-2023 Episodic Comment on above: 2016, had counseling x6 months, denies additional needs Residual codes; unclassified (7 sources) FH: Suicide; Translations: [Family history of other mental and behavioral disorders] 03-14-2023 Episodic Comment on above: patients mother of suicide 1 year ago. fearful of depression Residual codes; unclassified (20 sources) Family history of other substance abuse and dependence; Translations: [Family history of psychiatric condition] 03-14-2023 Episodic Residual codes; unclassified (20 sources) Family history of other mental and behavioral disorders; Translations: [Family history of psychiatric condition] 03-14-2023 Episodic Residual codes; unclassified (20 sources) Personal history of other specified conditions; Translations: [Personal history of unspecified mental disorder] 03-14-2023 Episodic Residual codes; unclassified (1 source) History of past delivery; Translations: [Personal history of other genital system and obstetric disorders] 11-26-2023 Episodic Substance-related disorders (10 sources) Smoker; Translations: [Nicotine dependence, unspecified, uncomplicated] Onset: Chronic Unclassified (2 sources) Normal labor; Translations: [Active labor at term] 10-20-2023 Past or Other Problems Problem Classification Problem Date Documented Da te Episodic/Chronic Abdominal pain (12 sources) Left lower quadrant pain; Translations: [Left lower quadrant pain] Onset: 08-03-2022 Episodic Other gastrointestinal disorders (10 [...] 08-03-2022 Episodic Other gastrointestinal disorders (1 source) Diarrhea, unspecified; Translations: [Diarrhea, unspecified] Onset: 07-03-2024 Episodic Screening and history of mental health and substance abuse codes (2 sources) Patient encounter status; Translations: [Encounter for screening for depression] Onset: 08-03-2022 Episodic Unclassified (2 sources) Late heart deceleration; Translations: [Late deceleration of heart rate] 10-20-2023 Results Test Name Value Interpretation Reference Range Facility Gastroenterology Visit Repor ton 06-04-2024 Gastroenterology Visit Report [facility] [address] [place] [address] OFFICE VISIT Date of Service: 06/04/24 MR#: [id number] Acct: [id number] Name: KEY ZELAYA Rep #: [id number] : 1995 Provider: Quique Reynolds DO Age/Sex: 29/F Location: [facility] Status: Signed Intake Vital Signs 11/26/23 10:20 Height 5 ft 6 in Weight: 154 lb 2 oz BMI 24.8 BP 132/84 H Intake Visit Reasons: 6 M FU Chief Complaint: pumping assessment Allergies No Known Allergies Allergy (Verified 11/26/23 10:20) Medications ???Medication ???Instructions ???Recorded ???Confirmed ???Type etonogestrel 0.12 mg-ethinyl 1 vag ring vaginal Q4W #3 ea 11/26/23 06/04/24 Rx estradiol 0.015 mg/24 hr vaginal ring (NuvaRing) hydrocortisone acetate 30 mg 25 mg [place] BID #12 ea 12/07/23 06/04/24 Rx rectal suppository colestipol 1 gram tablet 1 g PO HS #30 tabs 06/04/24 06/04/24 Rx prednisone 20 mg tablet 40 mg (2 x 20 mg) PO QDAY #60 tabs 06/04/24 06/04/24 Rx PFSH Medical History Abnormal stools Alcohol use Chronic cough Easy bruising GERD (gastroesophageal reflux disease) Incontinence of feces LLQ pain Low iron Menorrhagia Migraine headache Normal colonoscopy Seasonal allergies Smoker Vaginal delivery Wears glasses Surgical History History of wisdom tooth extraction Family History Mother TIA (transient ischemic attack) Heart disease Diabetes Father COPD (chronic obstructive pulmonary disease) Grandfather Heart disease Grandmother Acute Crohn's disease Diabetes Grandfather Cancer penile, prostate and bone cancer Aunt Breast cancer Grandmother Breast cancer Acute depression Social History (Updated 11/26/23 @ 10:26 by Jess Shafer) adopted: No household members: spouse housing: house number of children: 1 current occupational status: employed current occupation: [employer] current occupational exposures/hazards: Yes pets and animals: Yes leisure activities: art, hunting and fishing history of recent travel: No sexually active: Yes Smoking Status: Current every day smoker tobacco type: cigarettes Tobacco: How many years used: 10 second hand exposure: Yes quit status: considering quitting alcohol intake: former details: haven't drank since finding out substance use type: does not use caffeine: Yes eating out: 1-3 times/week what type of physical activity do you participate in: none seatbelt use: always do you feel safe at home: Yes HPI HPI Chief Complaint: pumping assessment Details: KEY ZELAYA, is a 29 F who presents to the office today for follow up. PCP OV 08.03.22 with Constipation was a difficulty as a child; but for the last several years she has had urgent loose stools with blood and mucus with urgency related incontinence. ? Biochemical ferritin, iron, TSH, CMP, LFT, CBC ? TIBC H470, transferrin sat L12 *BGI established 11.03.22 she has been having difficulty with postprandial urgent loose stools with blood and abdominal pain for the last several years. Reports LLQ US at OSH which was reported as normal. Additional difficulty with acid reflux/heartburn; started on iron replacement, dicyclomine and PPI, these have been helpful with urgency and reflux. 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 ? Biochemical ESR, LDH, RAST, AIDA comp, ANCA, SHALINI, celiac without pertinent abnormality. ? CRP H6.22 ? Stool calprotectin, fats, C.Difficile, EP, occult, lactoferrin WNL.? Elastase L197.? O/P and giardia QNS. Contact 11.08.22 with blood results and reminder to perform stool testing. Contact 11.24.22 with stool results. Would like to start with doxycycline to treat possible SIBO. If no better in two weeks she will call. If improved will call at end of treatment and discuss need for endoscopy. ? EGD and colonoscopy 01.11.23 EGD LA Grade A esophagitis without metaplasia; gastritis; duodenitis. ? Colonoscopy sigmoid erythema; TI congestion. No path changes Contact 01.31.23 reports improvement with doxycycline previously; start xifaxan and PERT OV 07.02.23 she is currently 24 weeks and is doing well without symptoms. Two weeks ago she had two self-limiting episodes of blood in stool. She is not currently taking medications except vi (more content not included)... Normal [facility] Absolute lymphocyte countOrd ered By: Daphnie Gaspar on 10-20-2023 Lymphocytes Auto (Unsp spec) [#/Vol] 2.24 10*3/uL 0.83-4.51 [facility] Automated lymphocyte count a s percentage of total leukocytesOrdered By: Daphnie Gaspar on 10-20-2023 Lymphocytes/100 WBC Auto (Unsp spec) 15.8 % 19-41 [facility] Basophil percentageOrdered B y: Daphnie Gaspar on 10-20-2023 Basophils/100 WBC (Bld) 0.4 % 0-[address] [facility] Eosinophils/100 WBC (Bld) 0.8 % 0-5 [facility] Hemoglobin (Bld) [Mass/Vol] 12.7 g/dL 12.0-15.0 [facility] Monocytes/100 WBC (Bld) 7.2 % 0-[address] [facility] Neutrophils (Bld) [#/Vol] 10.7 10*3/uL 2.0-7.7 [facility] Neutrophils/100 WBC (Bld) 75.0 % 47-70 [facility] WBC (Bld) [#/Vol] 14.2 10*3/uL 4.4-11.0 [facility] Determination of erythrocyte mean corpuscular volume (MCV)Ordered By: Daphnie Gaspar on 10-20-2023 MCV (RBC) [Entitic vol] 85.8 fL 81-[address] [facility] Erythrocyte distribution wid th ratioOrdered By: Daphnie Gaspar on 10-20-2023 Erythrocyte distribution width (RBC) [Ratio] 15.7 % 11.6-14.6 [facility] Erythrocyte distribution wid th standard deviationOrdered By: Daphnie Gaspar on 10-20-2023 Erythrocyte distribution width (RBC) [Entitic vol] 48.4 fL 35.1-43.9 [facility] Hematocrit Auto (Bld) [Volum e fraction]Ordered By: Daphnie Gaspar on 10-20-2023 Hematocrit (Bld) [Volume fraction] 39.2 % 37-47 [facility] Immature granulocytes/100 WB C Auto (Bld)Ordered By: Daphnie Gaspar on 10-20-2023 Immature granulocytes/100 WBC (Bld) 0.800 % 0.0-0.9 [facility] Comment on above: IG% - Immature Granu locytes (promyelocytes, myelocytes and metamyelocytes) > 1% indicates that a LEFT SHIFT is Present. Laboratory - Hematology and Cell countsOrdered By: Daphnie Gaspar on 10-20-2023 MCH (RBC) [Entitic mass] 27.8 pg 27.0-32.0 [facility] MCHC (RBC) [Mass/Vol] 32.4 g/dL 32-36 [facility] Nucleated RBC/100 WBC (Bld) [Ratio] 0 % 0-5 [facility] Platelet mean volume (Bld) [Entitic vol] 9.6 fL 6.2-12.0 [facility] Platelets (Bld) [#/Vol] 345 10*3/uL 150-450 [facility] No Panel InformationOrdered By: Daphnie Gaspar on 10-20-2023 Vaginal Amniotic Fluid Detection Negative Negative [facility] Comment on above: Amniotic fluid not p resent indicates No Rupture of FetalMembranes at time of specimen collection. RBC Auto (Bld) [#/Vol]Ordere d By: Daphnie Gaspar on 10-20-2023 RBC (Bld) [#/Vol] 4.57 10*6/uL 4.2-5.4 [facility] Serum Treponema species anti body detectionOrdered By: Daphnie Gaspar on 10-20-2023 Treponema sp Ab Ql (S) Non-Reactive [facility] Comment on above: QC OK Laboratory - Chemistry and C hemistry - challengeon 10-15-2023 Glucose Ql (U) Negative [facility] Laboratory - Urinalysison Protein Ql (U) Negative [facility] Laboratory - Chemistry and C hemistry - challengeon 10-11-2023 Glucose Ql (U) Negative [facility] Laboratory - Urinalysison Protein Ql (U) Negative [facility] Laboratory - Chemistry and C hemistry - challengeon 10-01-2023 Glucose Ql (U) Negative [facility] Laboratory - Urinalysison Protein Ql (U) Negative [facility] Laboratory - Chemistry and C hemistry - challengeon 09-27-2023 Glucose Ql (U) Negative [facility] Laboratory - Urinalysison Protein Ql (U) Negative [facility] No Panel InformationOrdered By: Melani Castano on 09-27-2023 Specimen Comment (Misc) Not Reportable [facility] Group B Streptococcus Culture Group B Beta Streptococcus is not isolated. [facility] Thin prep Papanicolaou smear with manual screeningOrdered By: Melani Castano on 09-27-2023 Thin prep Papanicolaou smear with manual screening Negative Negative [facility] Bilirubin Test strip Ql (U)O rdered By: Melani Castano on 09-25-2023 Bilirubin Ql (U) Negative Negative [facility] Culture, urineOrdered By: Brain Castano on 09-25-2023 Bacteria identified Cx Nom (U) Culture exhibits no growth. [facility] Ketones Test strip Ql (U)Ord ered By: Melani Castano on 09-25-2023 Ketones Ql (U) Negative Negative [facility] Nitrite Test strip Ql (U)Ord ered By: Melani Castano on 09-25-2023 Nitrite Ql (U) Negative Negative [facility] Protein Test strip Ql (U)Ord ered By: Melani Castano on 09-25-2023 Protein Ql (U) Negative Negative [facility] Urine blood detectionOrdered By: Melani Castano on 09-25-2023 RBC Ql (U) 10 /ul Negative [facility] Urine clarityOrdered By: Meliton Castano on 09-25-2023 Clarity (U) Clear Clear [facility] Urine color determinationOrd ered By: Melani Castano on 09-25-2023 Color (U) Yellow Yellow [facility] Urine glucose detectionOrder ed By: Melani Castano on 09-25-2023 Glucose Ql (U) Normal mg/dl Normal [facility] Urine leukocyte esterase det ection by dipstickOrdered By: Melani Castano on 09-25-2023 Leukocyte esterase Test strip Ql (U) 100 /ul Negative [facility] Urine pHOrdered By: Melani cuello on 09-25-2023 pH (U) 7.0 [pH] 5.0 - 8.0 [facility] Urine specific gravity measu rementOrdered By: Melani Castano on 09-25-2023 Specific gravity (U) [Rel density] 1.010 1.002-1.030 [facility] Urine urobilinogen measureme ntOrdered By: Melani Castano on 09-25-2023 Urobilinogen Ql (U) Normal mg/dl Normal [facility] Laboratory - Chemistry and C hemistry - challengeon 08-30-2023 Glucose Ql (U) Negative [facility] Laboratory - Urinalysison Protein Ql (U) Negative [facility] Laboratory - Chemistry and C hemistry - challengeon 08-16-2023 Glucose Ql (U) Negative [facility] Laboratory - Urinalysison Protein Ql (U) Negative [facility] Absolute lymphocyte countOrd ered By: Colleen Zavaleta on 08-02-2023 Lymphocytes Auto (Unsp spec) [#/Vol] 2.42 10*3/uL 0.83-4.51 [facility] Automated lymphocyte count a s percentage of total leukocytesOrdered By: Colleen Zavaleta on 08-02-2023 Lymphocytes/100 WBC Auto (Unsp spec) 16.7 % 19-41 [facility] Basophil percentageOrdered B y: Colleen Zavaleta on 08-02-2023 Basophils/100 WBC (Bld) 0.5 % 0-[address] [facility] Eosinophils/100 WBC (Bld) 1.4 % 0-5 [facility] Hemoglobin (Bld) [Mass/Vol] 11.2 g/dL 12.0-15.0 [facility] Monocytes/100 WBC (Bld) 5.7 % 0-10 [facility] Neutrophils (Bld) [#/Vol] 10.8 10*3/uL 2.0-7.7 [facility] Neutrophils/100 WBC (Bld) 74.3 % 47-70 [facility] WBC (Bld) [#/Vol] 14.5 10*3/uL 4.4-11.0 [facility] Determination of erythrocyte mean corpuscular volume (MCV)Ordered By: Colleen Zavaleta on 08-02-2023 MCV (RBC) [Entitic vol] 87.6 fL 81-99 [facility] Erythrocyte distribution wid th ratioOrdered By: Colleen Zavaleta on 08-02-2023 Erythrocyte distribution width (RBC) [Ratio] 13.2 % 11.6-14.6 [facility] Erythrocyte distribution wid th standard deviationOrdered By: Colleen Zavaleta on 08-02-2023 Erythrocyte distribution width (RBC) [Entitic vol] 42.6 fL 35.1-43.9 [facility] Gestational diabetes screen 1-hour screen with 50g oral glucose loadOrdered By: Colleen Zavaleta on 08-02-2023 Glucose 1 Hr post 50 g glucose PO [Mass/Vol] 128 mg/dL 70-140 [facility] HIV 1 and HIV-2 antibody ass ay with HIV-1 p24 antigen detectionOrdered By: Colleen Zavaleta on 08-02-2023 HIV 1+2 Ab+HIV1 p24 Ag IA Ql Non-Reactive Nonreactive [facility] Hematocrit Auto (Bld) [Volum e fraction]Ordered By: Colleen Zavaleta on 08-02-2023 Hematocrit (Bld) [Volume fraction] 34.6 % 37-47 [facility] Immature granulocytes/100 WB C Auto (Bld)Ordered By: Colleen Zavaleta on 08-02-2023 Immature granulocytes/100 WBC (Bld) 1.400 % 0.0-0.9 [facility] Comment on above: IG% - Immature Granu locytes (promyelocytes, myelocytes and metamyelocytes) > 1% indicates that a LEFT SHIFT is Present. Laboratory - Chemistry and C hemistry - challengeon 08-02-2023 Glucose Ql (U) Negative [facility] Laboratory - Hematology and Cell countsOrdered By: Colleen Zavaleta on 08-02-2023 MCH (RBC) [Entitic mass] 28.4 pg 27.0-32.0 [facility] MCHC (RBC) [Mass/Vol] 32.4 g/dL 32-36 [facility] Nucleated RBC/100 WBC (Bld) [Ratio] 0 % 0-5 [facility] Platelets (Bld) [#/Vol] 370 10*3/uL 150-450 [facility] Laboratory - Urinalysison Protein Ql (U) Negative [facility] Platelet mean volume [place] (Bld) [Entitic vol]Ordered By: Colleen Zavaleta on 08-02-2023 Platelet mean volume (Bld) [Entitic vol] 9.2 fL 6.2-12.0 [facility] RBC Auto (Bld) [#/Vol]Ordere d By: Colleen Zavaleta on 08-02-2023 RBC (Bld) [#/Vol] 3.95 10*6/uL 4.2-5.4 [facility] Serum Treponema species anti body detectionOrdered By: Colleen Zavaleta on 08-02-2023 Treponema sp Ab Ql (S) Non-Reactive [facility] Laboratory - Chemistry and C hemistry - challengeon 07-02-2023 Glucose Ql (U) Negative [facility] Laboratory - Urinalysison Protein Ql (U) Negative [facility] Laboratory - Chemistry and C hemistry - challengeon 05-07-2023 Glucose Ql (U) Negative [facility] Laboratory - Urinalysison Protein Ql (U) Negative [facility] Laboratory - Chemistry and C hemistry - challengeon 04-12-2023 Glucose Ql (U) Negative [facility] Laboratory - Urinalysison Protein Ql (U) Negative [facility] Chlamydia trachomatis rRNA d etection by probe and target amplification methodOrdered By: Julianne Turner on 03-14-2023 C. trachomatis rRNA BRIGHT+probe Ql (Unsp spec) Negative Negative [facility] Culture, urineOrdered By: Nakia Turner on 03-14-2023 Bacteria identified Cx Nom (U) Positive [facility] Laboratory - Drug toxicology Ordered By: Julianne Turner on 03-14-2023 Amphetamines Ql (U) Negative <1000 ng/mL [facility] Benzodiazepines Ql (U) Negative < 200 ng/mL [facility] Cannabinoids Screen Ql (U) Negative < 50 ng/m L [facility] Cocaine Ql (U) Negative < 300 ng/mL [facility] Opiates Ql (U) Negative < 300 ng/mL [facility] Laboratory - Microbiology an d Antimicrobial susceptibilityOrdered By: Julianne Turner on 03-14-2023 N. gonorrhoeae DNA BRIGHT+probe Ql (Unsp spec) Negative Negative [facility] Comment on above: Performed at: =G - L [address], [place] [id number] Director: Prachi Sparks MD, Phone: [phone] No Panel InformationOrdered By: Julianne Turner on 03-14-2023 MDMA (Ecstasy) Screen Negative < 500 ng/mL [facility] Urine Barbiturates Screen Negative < 200 ng/m L [facility] Urine Drug Screen Comment [facility] Comment on above: CONFIRMATORY TESTING FOR ALL POSITIVE URINE DRUG SCREENRESULTS WILL ONLY BE SENT OUT UPON PHYSICIAN ORDER. VISTA Urine Drug Screen methods provide only preliminaryanalytical test results. A more specific alternate chemicalmethod must be used in order to obtain a confirmedanalytical result. Gas chromatography/mass spectrometery(GC/MS) is the preferred confirmatory method. Clinicalconsideration and professional judgement should be appliedto any drug of abuse test result, particularly whenpreliminary positive results are used. URINE TCA TESTING MUST BE ORDERED SEPARATELY. USE TESTMNEMONIC: [facility] Urine Methadone Screen Negative < 300 ng/mL [facility] Urine phencyclidine (PCP) de tectionOrdered By: Julianne Turner on 03-14-2023 Phencyclidine Ql (U) Negative < 25 ng/mL [facility] Serum or plasma choriogonado tropin detectionOrdered By: Daphnie Gaspar on 02-28-2023 HCG ( test) Ql 76989 mIU/mL <4 [facility] Comment on above: hCG levels with Gest ational AgeGestational Age hCG mIU/mL (IU/L)0.2 - 1 week 5 - 501-2 weeks 50 - 5002-3 weeks 100 - 77079-2 weeks 500 - 219394-7 weeks 1000 - 581222-5 weeks 48317 - 100,0006-8 weeks 18811 - 200,0002-3 months 28220 - 100,000 Serum or plasma choriogonado tropin detectionOrdered By: Daphnie Gaspar on 02-26-2023 HCG ( test) [place]l 18223 mIU/mL <4 [facility] Comment on above: hCG levels with Gest ational AgeGestational Age hCG mIU/mL (IU/L)0.2 - 1 week 5 - 501-2 weeks 50 - 5002-3 weeks 100 - 09366-9 weeks 500 - 737687-5 weeks 1000 - 524920-8 weeks 81341 - 100,0006-8 weeks 22179 - 200,0002-3 months 32123 - 100,000 Laboratory - Chemistry and C hemistry - challengeOrdered By: Ahmet Campos on 01-11-2023 HCG ( test) Ql (U) Negative [facility] Comment on above: Very dilute urine sp ecimens, as indicated by a low specificgravity, may not contain in store representative levels of hCG. If is still suspected, a first morning urinespecimen should be collected 48 hours later and tested. Clostridium difficile detect ion by polymerase chain reactionOrdered By: Quique Reynolds on 11-15-2022 C. difficile DNA BRIGHT+probe Ql (Unsp spec) [facility] No Panel InformationOrdered By: Quique Reynolds on 11-15-2022 Stool Calprotectin 34 ug/g 0-120 [facility] Comment on above: Concentration Interp retation Follow-Up<16 - 50 ug/g Normal None>50 -120 ug/g Borderline Re-evaluate in 4-6 weeks >120 ug/g Abnormal Repeat as clinically indicatedPerformed at: [employer] [address] [id number] Director: Tony Andrade PhD, Phone: [phone] at: [employer] [id number] Director: Alesia Falk MD, Phone: [phone] Stool Neutral Fats Normal . [facility] Comment on above: Normal (<60 Droplets /HPF) Stool Pancreatic Elastase 197 >200 [facility] Comment on above: Result Units: ug [address]ann[address] st./g Severe Pancreatic Insufficiency: <100 Moderate Pancreatic Insufficiency: 100 - 200 Normal: >200Performed at: [employer] [id number] Director: Alesia Falk MD, Phone: [phone] Qualitative fecal fat or lip idsOrdered By: Quique Reynolds on 11-15-2022 Fat Ql (Stl) Normal . [facility] Comment on above: Normal (<100 Droplet s/HPF) Stool enteric pathogen panel by probe and target amplification methodOrdered By: Quique Reynolds on 11-15-2022 Gastrointestinal pathogens panel BRIGHT+probe (Stl) [facility] Stool gastrointestinal hemog lobin detection by immunologic methodOrdered By: Quique Reynolds on 11-15-2022 Lower GI hemoglobin IA Ql (Stl) [facility] Stool lactoferrin detection by immunoassayOrdered By: Quique Reynolds on 11-15-2022 Lactoferrin IA Ql (Stl) [facility] Albumin Elph [Mass/Vol]Order ed By: Quique Reynolds on 11-03-2022 Albumin [Mass/Vol] 3.7 g/dL 2.9-4.4 [facility] Atypical perinuclear antineu trophil cytoplasmic antibodies measurementOrdered By: Quique Reynolds on 11-03-2022 Neutrophil cytoplasmic Ab.perinuclear.atypical IF (S) [Titer] <1:20 titer Neg:<1:20 [facility] Comment on above: The atypical pANCA p attern has been observed in asignificant percentage of patients with ulcerative colitis,primary sclerosing cholangitis and autoimmune hepatitis. Basophil percentageOrdered B y: Quique Reynolds on 11-03-2022 Basophil percentage < 0.2 AI 0.0-0.9 [facility] LDH [Catalytic activity/Vol] 208 U/L 84-246 [facility] Chocolate RASTOrdered By: Ra marline Reynolds on 11-03-2022 Chocolate IgE Qn (S) <0.10 kU/L Class [address] [facility] Comment on above: Performed at: - [address] [id number] Director: Tony Andrade PhD, Phone: [phone] at: [facility] Lab[address] [id number] Director: Alesia Falk MD, Phone: [phone] Erythrocyte sedimentation ra teOrdered By: Quique Reynolds on 11-03-2022 ESR (Bld) [Velocity] 2 mm/h 0-[address] [facility] Interpretation of serum or p lasma protein pattern by immunofixation (narrative resultOrdered By: Quique Reynolds on 11-03-2022 Protein Fractions Immunofixation Darvin [Interp] See comment [facility] Comment on above: Not Observed Laboratory - Miscellaneous t estsOrdered By: Quique Reynolds on 11-03-2022 Service comment (Unsp spec) [Interp] Comment . [facility] Comment on above: Levels of Specific I gE Class Description of Class ----- < 0.10 0 Negative 0.10 - 0.31 0/I Equivocal/Low 0.32 - 0.55 I Low 0.56 - 1.40 II Moderate 1.41 - 3.90 III High 3.91 - 19.00 IV Very High 19.01 - 100.00 V Very High >100.00 Very High No Panel InformationOrdered By: Quique Reynolds on 11-03-2022 Addendum Document Comment . [facility] Comment on above: Protein electrophore sis scan will follow via computer,mail, or optical glass inspector delivery. Centromere B Antibody <0.2 AI 0.0-0.9 [facility] Endomysial IgA Antibody Negative Negative [facility] Immunoglobulin E 229 IU/mL 6-495 [facility] Comment on above: Performed at: - L [address] [id number] Director: Tony Andrade PhD, Phone: [phone] at: - [facility] [address] [id number] Director: Alesia Falk MD, Phone: [phone] EMERGENCY DISPATCH OPERATOR Antibody <0.2 AI 0.0-0.9 [facility] [employer] Allergens (RAST) Negative . [facility] Comment on above: Allergens in this mi x are: Blue mussel Fish Bussey Shrimp Tuna Serum DNA double strand anti body assay (units/volume)Ordered By: Quique Reynolds on 11-03-2022 DNA double strand Ab Qn (S) 3 [IU]/mL 0-9 [facility] Comment on above: Negative <5 Equivoca l 5 - 9 Positive >9 Serum Maryam-1 antibody assay (u nits/volume)Ordered By: Quique Reynolds on 11-03-2022 Maryam-1 extractable nuclear Ab Qn (S) <0.2 AI 0.0-0.9 [facility] Serum Scl-70 extractable nuc lear antibody assay (units/volume)Ordered By: Quique Reynolds on 11-03-2022 SCL-70 extractable nuclear Ab Qn (S) <0.2 AI 0.0-0.9 [facility] Serum Burnham extractable nucl ear antibody detectionOrdered By: Quique Reynolds on 11-03-2022 [place] extractable nuclear Ab Ql (S) <0.2 AI 0.0-0.9 [facility] Serum diwmq-1-zftzucdf measu rement by electrophoresisOrdered By: Quique Reynolds on 11-03-2022 Alpha 1 globulin Elph [Mass/Vol] 0.2 g/dL 0.0-0.4 [facility] Alpha 1 globulin Elph [Mass/Vol] 0.7 g/dL 0.4-1.0 [facility] Serum beef IgE antibody assa y (units/volume)Ordered By: Quique Reynolds on 11-03-2022 Beef IgE Qn (S) <0.10 kU/L Class 0 [facility] Serum classic neutrophil cyt oplasmic antibody assay (units/volume)Ordered By: Quique Reynolds on 11-03-2022 Neutrophil cytoplasmic Ab.classic Qn (S) <1:20 titer Neg:<1:20 [facility] Serum corn IgE antibody assa y (units/volume)Ordered By: Quique Reynolds on 11-03-2022 [place] IgE Qn (S) <0.10 kU/L Class 0 [facility] Serum cow milk IgE antibody assay (units/volume)Ordered By: Quique Reynolds on 11-03-2022 Cow milk IgE Qn (S) <0.10 kU/L Class 0 [facility] Serum globulin measurement ( mass/volume)Ordered By: Quique Reynolds on 11-03-2022 Globulin (S) [Mass/Vol] 2.8 g/dL 2.2-3.[address] [facility] Serum or plasma C reactive p rotein measurement (mass/volume)Ordered By: Quique Reynolds on 11-03-2022 CRP [Mass/Vol] 6.22 mg/L 0.0-3.0 [facility] Comment on above: C-Reactive Protein ( CRP) provides useful information for thediagnosis, therapy and monitoring of inflammatory processesand associated diseases. For the evaluation of Relative Riskfor Cardiovascular Disease, a High Sensitivity CRP (HSCRP)should be ordered. Serum or plasma IgA measurem ent (mass/volume)Ordered By: Quique Reynolds on 11-03-2022 IgA [Mass/Vol] 110 mg/dL 87-352 [facility] Serum or plasma IgG measurem ent (mass/volume)Ordered By: Quique Reynolds on 11-03-2022 IgG [Mass/Vol] 806 mg/dL 586-1602 [facility] Serum or plasma IgM measurem ent (mass/volume)Ordered By: Quique Reynolds on 11-03-2022 IgM [Mass/Vol] 73 mg/dL 26-217 [facility] Serum or plasma beta globuli n measurement by electrophoresis (mass/volume)Ordered By: Quique Reynolds on 11-03-2022 Beta globulin Elph [Mass/Vol] 1.2 g/dL 0.7-1.3 [facility] Serum or plasma gamma globul in measurement by electrophoresis (mass/volume)Ordered By: Quique Reynolds on 11-03-2022 Gamma globulin Elph [Mass/Vol] 0.7 g/dL 0.4-1.8 [facility] Serum or plasma immunoelectr ophoresis interpretation (nominal result)Ordered By: Quique Reynolds on 11-03-2022 Interpretation IEP [Interp] Comment . [facility] Comment on above: No monoclonality det ected. Serum peanut IgE antibody as say (units/volume)Ordered By: Quique Reynolds on 11-03-2022 Peanut IgE Qn (S) <0.10 kU/L Class 0 [facility] Serum perinuclear neutrophil cytoplasmic antibody titer by immunofluorescenceOrdered By: Quique Reynolds on 11-03-2022 Neutrophil cytoplasmic Ab.perinuclear IF (S) [Titer] <1:20 titer Neg:<1:20 [facility] Comment on above: The presence of posi tive fluorescence exhibiting P-ANCA orC-ANCA patterns alone is not specific for the diagnosis ofWegener's Granulomatosis (WG) or microscopic polyangiitis.Decisions about treatment should not be based solely onANCA IFA results. The International ANCA Group Consensusrecommends follow up testing of positive sera with both IL-3 and MPO-ANCA enzyme immunoassays. As many as 5% serumsamples are positive only by EIA. Ref. AM J Clin Oojtqe7222;111:507-513. Serum pork IgE antibody assa y (units/volume)Ordered By: Quique Reynolds on 11-03-2022 Pork IgE Qn (S) <0.10 kU/L Class 0 [facility] Serum soybean IgE antibody a ssay (units/volume)Ordered By: Quique Reynolds on 11-03-2022 Soybean IgE Qn (S) <0.10 kU/L Class 0 [facility] Serum tissue transglutaminas e IgA antibody assay (units/volume)Ordered By: Quique Reynolds on 11-03-2022 tTG IgA Qn (S) <2 U/mL 0-3 [facility] Comment on above: Negative 0 - 3 Weak Positive 4 - 10 Positive >10 Tissue Transglutaminase (tTG) has been identified as the endomysial antigen. Studies have demonstr- ated that endomysial IgA antibodies have over 99% specificity for gluten sensitive enteropathy. Serum wheat IgE antibody ass ay (units/volume)Ordered By: Quique Reynolds on 11-03-2022 Wheat IgE Qn (S) <0.10 kU/L Class 0 [facility] Serum whole egg IgE antibody assay (units/volume)Ordered By: Quique Reynolds on 11-03-2022 Whole Egg IgE Qn (S) <0.10 kU/L Class [address] [facility] Thin prep Papanicolaou smear with manual screeningOrdered By: Quique Reynolds on 11-03-2022 Thin prep Papanicolaou smear with manual screening 1.4 0.7-1.7 [facility] Total protein bloodOrdered B y: Quique Reynolds on 04-21-2023 Protein [Mass/Vol] 6.5 g/dL 6.0-8.5 [facility] 09-08-[address] [facility] Office Visit (TEMI) KEY ZELAYA ([id number]) 1995 F Date Time Provider Department 09/08/22 11:20 AM TEMI RICE During your visit today, we recorded the following information about you: Temperature Pulse Respiration Blood pressure 97.4 degrees 74/minute 18/minute 118/62 Weight Height 69.9 kg 1.676 m Temi Rice APRN.HAND ALTERATIONS TAILOR 09/10/2022 5:50 PM Signed CHIEF COMPLAINT: Key Zelaya is a 27 [...] She has an appointment with GI in [place] in October. I reviewed past medical, surgical, social, and family histories today and updated chart. Allergies, chronic medications, and supplements were also reviewed. The history is provided by the patient. No high school foreign language teacher was used. History reviewed. No [...] Ketones, Urine 08/11/2022 Negative Negative Final Specific Iva, Ur 08/11/2022 1.010 1.005 - 1.030 Final [...] deficiency - ICD9: 280.9, ICD10: E61.1 - (more content not included)... Normal [facility] CNPNon 08-15-2022 JOANNEN Telephone (TEMI) KEY ZELAYA ([id number]) 1995 F Date Time Provider Department 08/15/22 TEMI RICE During your visit today, we recorded the following information about you: Sandra Mattson MA 08/15/2022 5:01 PM Signed ----- Message from Temi Rice APRN.HAND ALTERATIONS TAILOR sent at 08/15/2022 4:16 PM EST ----- Please let the patient know that her US was normal and did not show any fibroids or cysts. Did she take her Nuvaring out for the procedure or leave it in? Sandra Mattson MA 08/15/2022 5:02 PM Signed Patient notified and voiced understanding. Patient states for the transvaginal ultrasound she took the nuvaring out. Sandra Mattson MA Allergies As of Date: 08/15/2022 (No Known Allergies) Date Reviewed: 08/03/2022 Reviewed by: Temi Rice APRN.HAND ALTERATIONS TAILOR - Fully Assessed Reason for Visit: Results [95] Prescriptions as of 08/15/2022 - Ferrous Sulfate (SLOW FE) 142 mg [...] at bedtime. Problem List As Of Date 08/15/2022 Noted Resolved Colitis [K52.9] 08/03/2022 Blood in stool [K92.1] 08/03/2022 Abnormal stools [R19.5] 08/03/2022 LLQ pain [R10.32] 08/03/2022 Heartburn [R12] 08/03/2022 Incontinence of feces with fecal urgency [R15.9*08/03/2022 Menorrhagia with regular cycle [N92.0] 08/03/2022 Smoker [F17.200] 08/03/2022 Encounter Status:Closed by SANDRA MATTSON on 08/15/22 [facility] rAash 08-12-2022 NEO Telephone (TEMI) KEY ZELAYA ([id number]) 1995 F Date Time Provider Department 08/12/22 TEMI RICE During your visit today, we recorded the following information about you: Temi Rice APRN.HAND ALTERATIONS TAILOR 08/12/2022 10:17 AM Signed CBC was stable- no anemia CMP and TSH were normal B12 and folic acid were normal. The transferrin saturation was low indicating iron deficiency. I would recommend an iron replacement called Slow Fe because it is more tolerable. I'm going to send this in for her. Still recommend that she sees GI for the blood in her stool. Sandra Mattson MA 08/14/2022 9:32 AM Signed Patient notified and voiced understanding. She is seeing GI doctor in October. Sandra Mattson MA Allergies As of Date: 08/12/2022 (No Known Allergies) Date Reviewed: 08/03/2022 Reviewed by: Temi Rice APRN.HAND ALTERATIONS TAILOR - Fully Assessed Reason for Visit: Results [95] Orders [681] Primary Visit Diagnosis:Iron deficiency [E61.1] Order(s):Ferrous Sulfate (SLOW FE) 142 mg (45 mg iron) TbERTake 1 tablet by mouth once daily.Disp: 30 tabletRfl: 2 Prescriptions as of 08/14/2022 - Ferrous Sulfate (SLOW FE) 142 mg [...] at bedtime. Problem List As Of Date 08/12/2022 Noted Resolved Colitis [K52.9] 08/03/2022 Blood in stool [K92.1] 08/03/2022 Abnormal stools [R19.5] 08/03/2022 LLQ pain [R10.32] 08/03/2022 Heartburn [R12] 08/03/2022 Incontinence of feces with fecal urgency [R15.9*08/03/2022 Menorrhagia with regular cycle [N92.0] 08/03/2022 Smoker [F17.200] 08/03/2022 Prescriptions ordered this encounter Disp Refills Start End SLOW FE 142 MG (45 MG IRON) TABLET,E* 30 t* 2 08/12/2022 Route: ORAL Sig: Take 1 tablet by mouth once daily. Encounter Status:Closed by SANDRA MATTSON on 08/14/22 [facility] Arash 08-11-2022 NEO Telephone (AGFAMPLE) KEY ZELAYA ([id number]) 1995 F Date Time Provider Department 08/11/22 TEMI RICE During your visit today, we recorded the following information about you: Sandra Mtatson MA 08/11/2022 2:55 PM Signed ----- Message from Temi Rice APRN.HAND ALTERATIONS TAILOR sent at 08/11/2022 2:48 PM EST ----- Fecal occult was negative. Continue to follow up with hematology. UA only showed a small amount of blood but no other signs of infection. Sandra Mattson MA 08/11/2022 2:55 PM Signed Left message on patients voicemail with all information. (Ok per lifetime consent). Sandra Mattson MA Allergies As of Date: 08/11/2022 (No Known Allergies) Date Reviewed: 08/03/2022 Reviewed by: Temi Rice APRN.HAND ALTERATIONS TAILOR - Fully Assessed Reason for Visit: Results [95] Prescriptions as of 08/11/2022 - ELURYNG 0.12-0.015 mg/24 hr vaginal ring INSERT 1 RING IN VAGINA FOR 21 DAYS, REMOVE FOR 7 DAYS THEN INSERT NEW RING - pantoprazole DR (PROTONIX) 20 mg tablet Take 1 tablet by mouth once daily. - dicyclomine (BENTYL) 10 mg capsule Take 1 capsule by mouth before meals and at bedtime. Problem List As Of Date 08/11/2022 Noted Resolved Colitis [K52.9] 08/03/2022 Blood in stool [K92.1] 08/03/2022 Abnormal stools [R19.5] 08/03/2022 LLQ pain [R10.32] 08/03/2022 Heartburn [R12] 08/03/2022 Incontinence of feces with fecal urgency [R15.9*08/03/2022 Menorrhagia with regular cycle [N92.0] 08/03/2022 Smoker [F17.200] 08/03/2022 Encounter Status:Closed by SANDRA MATTSON on 08/11/22 Normal [facility] Hemoccult Stl Ql IAon 2022 Lower GI hemoglobin IA Ql (Stl) Negative Normal Negative [facility] Comment on above: Order Comment: Speci men Type: STOOL SPECIMEN Ordering Facility: [facility] Address: [address] [place], [place] [address] Performed By: #### 2 9771-3 #### [facility] CLIA [id number] [address] [place] [address] [place] US FEMALE PELV TRANSABD COMP LETEon 08-11-2022 US FEMALE PELV TRANSABD COMPLETE * * *Final Report* * * DATE OF EXAM: Aug 11 2022 2:52PM LDU 1065 - US FEMALE PELV TRANSABD COMPLETE / PROCEDURE REASON: LLQ pain * * * * Physician Interpretation * * * * EXAMINATION: TRANSVAGINAL AND LIMITED TRANSABDOMINAL PELVIC ULTRASOUND CLINICAL HISTORY: Left lower quadrant abdominal pain TECHNIQUE: Sonography of the pelvis was performed by transvaginal and transabdominal (limited) techniques. Images were obtained and stored in a permanent archive. MQ: UFP_1 COMPARISON: None RESULT: Uterus size: 9.3 x 4.8 x 2.3 cm -Orientation: Anteverted -Myometrium: Normal sonographic appearance. -Endometrial echo complex: 0.3 cm -Cervix: normal is 1.1 cm ill-defined hypoechoic likely anechoic fluid collection is present in the subendometrial region at the lower uterine segment, nonspecific. Right ovary: 2.1 x 1.1 x 1.1 cm Normal sonographic appearance with physiologic follicles. Arterial and venous flow is present throughout the ovary on color Doppler imaging with normal spectral waveforms. Left ovary: 2.3 x 0.9 x 1.4 cm Normal sonographic appearance with physiologic follicles. Arterial and venous flow is present throughout the left ovary on color Doppler imaging with normal spectral waveforms. Pelvis free fluid: None. IMPRESSION: No acute adnexal abnormalities. A 1.1 cm hypoechoic possibly anechoic lesion in the lower uterine segment suggests trapped fluid. Attention on follow-up is recommended. Asthma Educator: PSCB Transcribe Date/Time: Aug 14 2022 10:52A Dictated by : CECILE JOHNSON MD This examination was interpreted and the report reviewed and electronically signed by: CECILE JOHNSON MD on Aug 14 2022 11:13AM EST [id number] Normal [facility] US FEMALE PELVIS TRANSVAGon 08-11-2022 US FEMALE PELVIS TRANSVAG * * *Final Rep ort* * * DATE OF EXAM: Aug 11 2022 2:52PM LDU 1060 - US FEMALE PELVIS TRANSVAG / PROCEDURE REASON: LLQ pain * * * * Physician Interpretation * * * * EXAMINATION: TRANSVAGINAL AND LIMITED TRANSABDOMINAL PELVIC ULTRASOUND CLINICAL HISTORY: Left lower quadrant abdominal pain TECHNIQUE: Sonography of the pelvis was performed by transvaginal and transabdominal (limited) techniques. Images were obtained and stored in a permanent archive. MQ: UFP_1 COMPARISON: None RESULT: Uterus size: 9.3 x 4.8 x 2.3 cm -Orientation: Anteverted -Myometrium: Normal sonographic appearance. -Endometrial echo complex: 0.3 cm -Cervix: normal is 1.1 cm ill-defined hypoechoic likely anechoic fluid collection is present in the subendometrial region at the lower uterine segment, nonspecific. Right ovary: 2.1 x 1.1 x 1.1 cm Normal sonographic appearance with physiologic follicles. Arterial and venous flow is present throughout the ovary on color Doppler imaging with normal spectral waveforms. Left ovary: 2.3 x 0.9 x 1.4 cm Normal sonographic appearance with physiologic follicles. Arterial and venous flow is present throughout the left ovary on color Doppler imaging with normal spectral waveforms. Pelvis free fluid: None. IMPRESSION: No acute adnexal abnormalities. A 1.1 cm hypoechoic possibly anechoic lesion in the lower uterine segment suggests trapped fluid. Attention on follow-up is recommended. Asthma Educator: PSCB Transcribe Date/Time: Aug 14 2022 10:52A Dictated by : CECILE JOHNSON MD This examination was interpreted and the report reviewed and electronically signed by: CECILE JOHNSON MD on Aug 14 2022 11:13AM EST [id number] Normal [facility] Urinalysis complete panel (U )on 08-11-2022 Bilirubin Ql (U) Negative Normal Negative [facility] Comment on above: Order Comment: Speci men Type: URINE SPECIMEN Ordering Facility: [facility] Address: [address] [place] [address] Performed By: #### 2 4356-8 #### [facility] CLIA [id number] [address] Clarity (Unsp spec) Clear Normal Clear [facility] Comment on above: Order Comment: Speci men Type: URINE SPECIMEN Ordering Facility: [facility] Address: [address] [address] Performed By: #### 2 4356-8 #### [facility] CLIA [id number] [address] Color (U) Light Yellow Abnormal Yellow [facility] Comment on above: Order Comment: Speci men Type: URINE SPECIMEN Ordering Facility: [facility] Address: [address] [address] Performed By: #### 2 4356-8 #### [facility] CLIA [id number] [address] [id number] [facility] [place] Epithelial cells LM.HPF (Urine sed) [#/Area] Few Normal [facility] Comment on above: Order Comment: Speci men Type: URINE SPECIMEN Ordering Facility: [facility] Address: [address] [address] Performed By: #### 2 4356-8 #### [facility] CLIA [id number] [address] [id number] [facility] Glucose Test strip (U) [Mass/Vol] Negative Normal Negative [facility] Comment on above: Order Comment: Speci men Type: URINE SPECIMEN Ordering Facility: [facility] Address: [address] [place] [address] Performed By: #### 2 4356-8 #### [facility] CLIA [id number] [address] [place], [place] [address] [place] [address] Hemoglobin Ql (U) 1+ Abnormal Negative [facility] Comment on above: Order Comment: Speci men Type: URINE SPECIMEN Ordering Facility: [facility] Address: [address] [place] [address] Performed By: #### 2 4356-8 #### [facility] CLIA [id number] [address] Ketones Ql (U) Negative Normal Negative [facility] Comment on above: Order Comment: Speci men Type: URINE SPECIMEN Ordering Facility: [facility] Address: [address] [place] [address] Performed By: #### 2 4356-8 #### [facility] CLIA [id number] [address] Leukocyte esterase Test strip Ql (U) Negative Normal Negative [facility] Comment on above: Order Comment: Speci men Type: URINE SPECIMEN Ordering Facility: [facility] Address: [address] [place] [address] Performed By: #### 2 4356-8 #### [facility] CLIA [id number] [address] [place] [address] [place] Nitrite Ql (U) Negative Normal Negative [facility] Comment on above: Order Comment: Speci men Type: URINE SPECIMEN Ordering Facility: [facility] Address: [address] [place] [address] Performed By: #### 2 4356-8 #### [facility] CLIA [id number] [address] [place], [place] [address] [place] [address] [place] pH (U) 7.0 [pH] Normal 5.0-8.0 [facility] Comment on above: Order Comment: Speci men Type: URINE SPECIMEN Ordering Facility: [facility] Address: [address] [place] [address] Performed By: #### 2 4356-8 #### [facility] CLIA [id number] [address] OF [facility] Protein (U) [Mass/Vol] Negative Normal Negative [facility] Comment on above: Order Comment: Speci men Type: URINE SPECIMEN Ordering Facility: [facility] Address: [address] [place] [address] Performed By: #### 2 4356-8 #### [facility] CLIA [id number] [address] [place] [address] [place] RBC LM.HPF (Urine sed) [#/Area] 0-3 /HPF Normal 0-3 /HPF [facility] Comment on above: Order Comment: Speci men Type: URINE SPECIMEN Ordering Facility: [facility] Address: [address] [place] [address] Performed By: #### 2 4356-8 #### [facility] CLIA [id number] [address] [place] [address] [place] Specific gravity (U) [Rel density] 1.010 Normal 1.005-1.030 [facility] Comment on above: Order Comment: Speci men Type: URINE SPECIMEN Ordering Facility: [facility] Address: [address] [place] [address] Performed By: #### 2 4356-8 #### [facility] CLIA [id number] [address] Urobilinogen Ql (U) 0.2 EU/dL Normal 0.2-1.0 EU/dL [facility] Comment on above: Order Comment: Speci men Type: URINE SPECIMEN Ordering Facility: [facility] Address: [address] [place] [address] Performed By: #### 2 4356-8 #### [facility] CLIA [id number] [address] [place] [address] [facility] WBC LM.HPF (Urine sed) [#/Area] 0-5 /HPF Normal 0-5 /HPF [facility] Comment on above: Order Comment: Speci men Type: URINE SPECIMEN Ordering Facility: [facility] Address: [address] [place] [address] [place] [address] Performed By: #### 2 4356-8 #### [facility] CLIA [id number] [address] [place] [address] [facility] CNPIwona 08-08-2022 CNPN Telephone (TEMI) KEY ZELAYA F ([id number]) 1995 F Date Time Provider Department 08/08/22 SANDRA MATTSON During your visit today, we recorded the following information about you: Sandra Mattson MA 08/08/2022 11:34 AM Signed Patient lm on vm requesting to speak to BQ nurse . She is asking if you faxed referral to ermine . Please advise. NAVIN Dowell MA 08/08/2022 3:16 PM Signed Referral faxed and no VM box. NAVIN Garcia MA 08/08/2022 3:17 PM Signed Patient is informed Lo Ma MA Allergies As of Date: 08/08/2022 (No Known Allergies) Date Reviewed: 08/03/2022 Reviewed by: Temi Rice APRN.HAND ALTERATIONS TAILOR - Fully Assessed Reason for Visit: Patient Question [4857] Prescriptions as of 08/08/2022 - ELURYNG 0.12-0.015 mg/24 hr vaginal ring INSERT 1 RING IN VAGINA FOR 21 DAYS, REMOVE FOR 7 DAYS THEN INSERT NEW RING - pantoprazole DR (PROTONIX) 20 mg tablet Take 1 tablet by mouth once daily. - dicyclomine (BENTYL) 10 mg capsule Take 1 capsule by mouth before meals and at bedtime. Problem List As Of Date 08/08/2022 Noted Resolved Colitis [K52.9] 08/03/2022 Blood in stool [K92.1] 08/03/2022 Abnormal stools [R19.5] 08/03/2022 LLQ pain [R10.32] 08/03/2022 Heartburn [R12] 08/03/2022 Incontinence of feces with fecal urgency [R15.9*08/03/2022 Menorrhagia with regular cycle [N92.0] 08/03/2022 Smoker [F17.200] 08/03/2022 Encounter Status:Closed by SANDRA MATTSON on 08/08/22 Normal [facility] CBC W Auto Differential pane l (Bld)on 08-03-2022 Basophils (Bld) [#/Vol] 0.05 10*3/uL Normal <0.11 [facility] Comment on above: Order Comment: Speci men Type: BLOOD SPECIMEN Ordering Facility: [facility] Address: [address] [address] Performed By: #### 5 7021-8 #### [facility] CLIA [id number] [address] [place] [address] [place] Basophils/100 WBC (Bld) 0.5 % Normal [facility] Comment on above: Order Comment: Speci men Type: BLOOD SPECIMEN Ordering Facility: [facility] Address: [address] [address] Performed By: #### 5 7021-8 #### [facility] CLIA [id number] [address] [place] [address] [place] Differential cell count method Nom (Bld) Auto Normal [facility] Comment on above: Order Comment: Speci men Type: BLOOD SPECIMEN Ordering Facility: [facility] Address: [address] [address] Performed By: #### 5 7021-8 #### [facility] CLIA [id number] [address] [place] [address] [place] Eosinophils (Bld) [#/Vol] 0.38 10*3/uL Normal <0.46 [facility] Comment on above: Order Comment: Speci men Type: BLOOD SPECIMEN Ordering Facility: [facility] Address: [address] [place] [address] Performed By: #### 5 7021-8 #### [facility] CLIA [id number] [address] [place] [address] [place] Eosinophils/100 WBC (Bld) 3.8 % Normal [facility] Comment on above: Order Comment: Speci men Type: BLOOD SPECIMEN Ordering Facility: [facility] Address: [address] [place] [address] Performed By: #### 5 7021-8 #### [facility] CLIA [id number] [address] [place] Erythrocyte distribution width (RBC) [Ratio] 13.0 % Normal 11.5-15.0 [facility] Comment on above: Order Comment: Speci men Type: BLOOD SPECIMEN Ordering Facility: [facility] Address: [address] [place] [address] Performed By: #### 5 7021-8 #### [facility] CLIA [id number] [address] [place] Hematocrit (Bld) [Volume fraction] 41.8 % Normal 36.0-46.0 [facility] Comment on above: Order Comment: Speci men Type: BLOOD SPECIMEN Ordering Facility: [facility] Address: [address] [place] [address] Performed By: #### 5 7021-8 #### [facility] CLIA [id number] [address] [id number] [place] Hemoglobin (Bld) [Mass/Vol] 13.5 g/dL Normal 11.5-15.5 [facility] Comment on above: Order Comment: Speci men Type: BLOOD SPECIMEN Ordering Facility: [facility] Address: [address] [address] Performed By: #### 5 7021-8 #### [facility] CLIA [id number] [address] [place] [address] [place] Immature granulocytes (Bld) [#/Vol] 10*3/uL Normal <0.10 [facility] Comment on above: Order Comment: Speci men Type: BLOOD SPECIMEN Ordering Facility: [facility] Address: [address] [address] Performed By: #### 5 7021-8 #### [facility] CLIA [id number] [address] [place] [address] [place] Immature granulocytes/100 WBC (Bld) 0.1 % Normal [facility] Comment on above: Order Comment: Speci men Type: BLOOD SPECIMEN Ordering Facility: [facility] Address: [address] [place] [address] Performed By: #### 5 7021-8 #### [facility] CLIA [id number] [address] [place] [address] [place] Lymphocytes (Bld) [#/Vol] 3.42 10*3/uL Normal 1.00-4.0 0 [facility] Comment on above: Order Comment: Speci men Type: BLOOD SPECIMEN Ordering Facility: [facility] Address: [address] [place] [address] Performed By: #### 5 7021-8 #### [facility] CLIA [id number] [address] OF [place] Lymphocytes/100 WBC (Bld) 34.4 % Normal [facility] Comment on above: Order Comment: Speci men Type: BLOOD SPECIMEN Ordering Facility: [facility] Address: [address] [place] [address] Performed By: #### 5 7021-8 #### [facility] CLIA [id number] [address] MCH (RBC) [Entitic mass] 28.7 pg Normal 26.0-34.0 [facility] Comment on above: Order Comment: Speci men Type: BLOOD SPECIMEN Ordering Facility: [facility] Address: [address] [place] [address] Performed By: #### 5 7021-8 #### [facility] CLIA [id number] [address] [place] [address] [place] MCHC (RBC) [Mass/Vol] 32.3 g/dL Normal 30.5-36.0 [facility] Comment on above: Order Comment: Speci men Type: BLOOD SPECIMEN Ordering Facility: [facility] Address: [address] [place] [address] Performed By: #### 5 7021-8 #### [facility] CLIA [id number] [address] [place] [address] OF [facility] MCV (RBC) [Entitic vol] 88.9 fL Normal 80.0-100.0 A [facility] Comment on above: Order Comment: Speci men Type: BLOOD SPECIMEN Ordering Facility: [facility] Address: [address] [place] [address] Performed By: #### 5 7021-8 #### [facility] CLIA [id number] [address] [place] [address] [place] Monocytes (Bld) [#/Vol] 0.81 10*3/uL Normal <0.87 [facility] Comment on above: Order Comment: Speci men Type: BLOOD SPECIMEN Ordering Facility: [facility] Address: [address] [place] [address] Performed By: #### 5 7021-8 #### [facility] CLIA [id number] [address] [place] [address] Monocytes/100 WBC (Bld) 8.1 % Normal A [facility] Comment on above: Order Comment: Speci men Type: BLOOD SPECIMEN Ordering Facility: [facility] Address: [address] [address] Performed By: #### 5 7021-8 #### [facility] CLIA [id number] [address] [place] [address] [place] Neutrophils (Bld) [#/Vol] 5.27 10*3/uL Normal 1.45-7.5 0 [facility] Comment on above: Order Comment: Speci men Type: BLOOD SPECIMEN Ordering Facility: [facility] Address: [address] [place] [address] Performed By: #### 5 7021-8 #### [facility] CLIA [id number] [address] [place] [address] [place] Neutrophils/100 WBC (Bld) 53.1 % Normal [facility] Comment on above: Order Comment: Speci men Type: BLOOD SPECIMEN Ordering Facility: [facility] Address: [address] [place] [address] Performed By: #### 5 7021-8 #### [facility] CLIA [id number] [address] [place] [address] [place] Nucleated RBC (Bld) [#/Vol] Normal [facility] Comment on above: Order Comment: Speci men Type: BLOOD SPECIMEN Ordering Facility: [facility] Address: [address] [place] [address] Performed By: #### 5 7021-8 #### [facility] CLIA [id number] [address] [place] [address] [place] Nucleated RBC/100 WBC (Bld) [Ratio] Normal [facility] Comment on above: Order Comment: Speci men Type: BLOOD SPECIMEN Ordering Facility: [facility] Address: [address] [place] [address] Performed By: #### 5 7021-8 #### [facility] CLIA [id number] [address] [place] [address] [place] Platelet mean volume (Bld) [Entitic vol] 8.7 fL Low 9.0-12.7 [facility] Comment on above: Order Comment: Speci men Type: BLOOD SPECIMEN Ordering Facility: [facility] Address: [address] [place] [address] Performed By: #### 5 7021-8 #### [facility] CLIA [id number] [address] [place] Platelets (Bld) [#/Vol] 353 10*3/uL Normal 150-400 [facility] Comment on above: Order Comment: Speci men Type: BLOOD SPECIMEN Ordering Facility: [facility] Address: [address] [place] [address] Performed By: #### 5 7021-8 #### [facility] CLIA [id number] [address] [place] [address] [place] RBC (Bld) [#/Vol] 4.70 10*6/uL Normal 3.90-5.20 [facility] Comment on above: Order Comment: Speci men Type: BLOOD SPECIMEN Ordering Facility: [facility] Address: [address] [place] [address] Performed By: #### 5 7021-8 #### [facility] CLIA [id number] [address] [place] [address] [place] WBC (Bld) [#/Vol] 9.94 10*3/uL Normal 3.70-11.00 [facility] Comment on above: Order Comment: Speci men Type: BLOOD SPECIMEN Ordering Facility: [facility] Address: [address] [place] [address] Performed By: #### 5 7021-8 #### [facility] CLIA [id number] [address] [place] [address] [place] Basophils (Bld) [#/Vol] 0.05 10*3/uL <0.11 k/uL [facility] Basophils/100 WBC (Bld) 0.5 % C [facility] Differential cell count method Nom (Bld) Auto [facility] Eosinophils (Bld) [#/Vol] 0.38 10*3/uL <0.46 k/ uL [facility] Eosinophils/100 WBC (Bld) 3.8 % [facility] Erythrocyte distribution width (RBC) [Ratio] 13.0 % 11.5 - 15.0 % [facility] Hematocrit (Bld) [Volume fraction] 41.8 % 36.0 - 46.0 % [facility] Hemoglobin (Bld) [Mass/Vol] 13.5 g/dL 11.5 - 15.5 g/dL [facility] Immature granulocytes (Bld) [#/Vol] <0.10 k/uL [facility] Immature granulocytes/100 WBC (Bld) 0.1 % [facility] Lymphocytes (Bld) [#/Vol] 3.42 10*3/uL 1. 00 - 4.00 k/uL [facility] Lymphocytes/100 WBC (Bld) 34.4 % [facility] MCH (RBC) [Entitic mass] 28.7 pg 26. 0 - 34.0 pg [facility] MCHC (RBC) [Mass/Vol] 32.3 g/dL 30.5 - 36.0 g/dL [facility] MCV (RBC) [Entitic vol] 88.9 fL 80.0 - 100.0 fL [facility] Monocytes (Bld) [#/Vol] 0.81 10*3/uL <0.87 k/uL [facility] Monocytes/100 WBC (Bld) 8.1 % C [facility] Neutrophils (Bld) [#/Vol] 5.27 10*3/uL 1. 45 - 7.50 k/uL [facility] Neutrophils/100 WBC (Bld) 53.1 % [facility] Nucleated RBC (Bld) [#/Vol] [facility] Nucleated RBC/100 WBC (Bld) [Ratio] [facility] Platelet mean volume (Bld) [Entitic vol] 8.7 fL Low 9.0 - 12.7 fL [facility] Platelets (Bld) [#/Vol] 353 10*3/uL 150 - 400 k/uL [facility] RBC (Bld) [#/Vol] 4.70 10*6/uL 3.90 - 5.2 0 m/uL [facility] WBC (Bld) [#/Vol] 9.94 10*3/uL 3.70 - 11. 00 k/uL [facility] CNOVon 08-03-2022 CNOV Office Visit (AGFAMPLE) KEY ZELAYA ([id number]) 1995 F Date Time Provider Department 08/03/22 8:20 AM TEMI RICE During your visit today, we recorded the following information about you: Temperature Pulse Respiration Blood pressure 97.7 degrees 79/minute 18/minute 122/70 Weight Height 70.8 kg 1.676 m Temi Rice APRN.HAND ALTERATIONS TAILOR 08/03/2022 9:21 AM Signed [facility] Temi Rice LOADING SUPERVISOR-HAND ALTERATIONS TAILOR [address] [place] [address] Dept Dept. Visit Date: August 03, 2022 Ms.Leann Shady Zelaya Date of : 1995 MRN/E #: [id number] Chief Complaint: Patient presents with: Establish Care [...] 2-3 times a week. 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 No high school foreign language teacher was used. History reviewed. No [...] before meals and at bedtime. No current f (more content not included)... Normal [facility] Comprehensive metabolic 2000 panelon 08-03-2022 Albumin [Mass/Vol] 4.3 g/dL Normal 3.9-4.9 [facility] Comment on above: Order Comment: Maryam mustafa Type: BLOOD SPECIMEN Ordering Facility: [facility] Address: [address] [address] Performed By: #### 2 4323-8, 3016-3 #### [facility] CLIA [id number] [address] [place] ALP [Catalytic activity/Vol] 71 U/L Normal 34-123 [facility] [facility] Comment on above: Order Comment: Speci men Type: BLOOD SPECIMEN Ordering Facility: [facility] Address: [address] [address] Performed By: #### 2 4323-8, 3016-3 #### [facility] CLIA [id number] [address] [place] ALT With P-5'-P [Catalytic activity/Vol] 20 U/L Normal 7-38 [facility] Comment on above: Order Comment: Maryam men Type: BLOOD SPECIMEN Ordering Facility: [facility] Address: [address] [address] Performed By: #### 2 4323-8, 3016-3 #### [facility] CLIA [id number] [address] [place] [address] [place] Anion gap [Moles/Vol] 13 mmol/L Normal 9-18 [facility] Comment on above: Order Comment: Speci men Type: BLOOD SPECIMEN Ordering Facility: [facility] Address: [address] [place] [address] Performed By: #### 2 4323-8, 3016-3 #### [facility] CLIA [id number] [address] [place] [address] [place] AST With P-5'-P [Catalytic activity/Vol] 21 U/L Normal 13-35 [facility] Comment on above: Order Comment: Speci men Type: BLOOD SPECIMEN Ordering Facility: [facility] Address: [address] [place] [address] Performed By: #### 2 4323-8, 3015-3 #### [facility] CLIA [id number] [address] [place] [address] [place] Bilirubin [Mass/Vol] 0.3 mg/dL Normal 0.2-1.3 [facility] Comment on above: Order Comment: Speci men Type: BLOOD SPECIMEN Ordering Facility: [facility] Address: [address] [place] [address] Performed By: #### 2 4323-8, 3016-3 #### [facility] CLIA [id number] [address] [place] [address] [place] Calcium [Mass/Vol] 8.9 mg/dL Normal 8.5-10.2 [facility] Comment on above: Order Comment: Speci men Type: BLOOD SPECIMEN Ordering Facility: [facility] Address: [address] [place] [address] Performed By: #### 2 4323-8, 3016-3 #### [facility] CLIA [id number] [address] [place] [address] [place] Chloride [Moles/Vol] 106 mmol/L High 97-105 [facility] Comment on above: Order Comment: Speci men Type: BLOOD SPECIMEN Ordering Facility: [facility] Address: [address] [place] [address] Performed By: #### 2 4323-8, 6-3 #### [facility] CLIA [id number] [address] [place] [address] [facility] CO2 [Moles/Vol] 20 mmol/L Low 22-30 [facility] Comment on above: Order Comment: Speci men Type: BLOOD SPECIMEN Ordering Facility: [facility] Address: [address] [address] Performed By: #### 2 4323-8, 3 #### [facility] CLIA [id number] [address] [place] [address] [facility] Creatinine [Mass/Vol] 0.67 mg/dL Normal 0.58-0.96 [facility] Comment on above: Order Comment: Speci men Type: BLOOD SPECIMEN Ordering Facility: [facility] Address: [address] [place] [address] Performed By: #### 2 4323-8, 3 #### [facility] CLIA [id number] [address] [place], [place] [id number] [facility] ESTIMATED GLOMERULAR FILTRATION RATE 124 mL/min/1.73m??? Normal >=60 [facility] Comment on above: Order Comment: Speci men Type: BLOOD SPECIMEN Ordering Facility: [facility] Address: [address] [place] [address] Result Comment: [place]ia mated Glomerular Filtration Rate (eGFR) is calculated using the 2020 CKD-EPI creatinine equation. This equation utilizes serum creatinine, sex, and age as parameters. The creatinine assay has traceable calibration to isotope dilution-mass spectrometry. Refer to KDIGO guidelines for clinical interpretation. In patients with unstable renal function, e.g. those with acute kidney injury, the eGFR may not accurately reflect actual GFR. Performed By: #### 2 4323-8, 3015-3 #### [facility] CLIA [id number] [address] [place] [address] [place] Glucose [Mass/Vol] 95 mg/dL Normal 74-99 [facility] Comment on above: Order Comment: Maryam mustafa Type: BLOOD SPECIMEN Ordering Facility: [facility] Address: [address] [place], [place] [address] Result Comment: The [place] Diabetes Association (ADA) provides guidance for cutoff values for fasting glucose and random glucose. The ADA defines fasting as no caloric intake for at least 8 hours. Fasting plasma glucose results between 100 to 125 mg/dL indicate increased risk for diabetes (prediabetes). Fasting plasma glucose results greater than or equal to 126 mg/dL meet the criteria for diagnosis of diabetes. In the absence of unequivocal hyperglycemia, results should be confirmed by repeat testing. In a patient with classic symptoms of hyperglycemia or hyperglycemic crisis, random plasma glucose results greater than or equal to 200 mg/dL meet the criteria for diagnosis of diabetes. Reference: Standards of Medical Care in Diabetes 2016, [place] Diabetes Association. Diabetes Care. 2016.39(Suppl 1). Performed By: #### 2 4323-8, 6-3 #### [facility] CLIA [id number] [address] [place] [address] [place] Potassium [Moles/Vol] 4.1 mmol/L Normal 3.7-5.1 [facility] Comment on above: Order Comment: Maryam mustafa Type: BLOOD SPECIMEN Ordering Facility: [facility] Address: [address] [place], [place] [address] Performed By: #### 2 4323-8, 6-3 #### [facility] CLIA [id number] [address] [place] [address] [place] Protein [Mass/Vol] 6.9 g/dL Normal 6.3-8.0 [facility] Comment on above: Order Comment: Maryam mustafa Type: BLOOD SPECIMEN Ordering Facility: [facility] Address: [address] [place], [place] [address] Performed By: #### 2 4323-8, 6-3 #### [facility] CLIA [id number] [address] [place] [address] [place] Sodium [Moles/Vol] 139 mmol/L Normal 136-144 [facility] Comment on above: Order Comment: Speci men Type: BLOOD SPECIMEN Ordering Facility: [facility] Address: [address] [address] Performed By: #### 2 4323-8, 3016-3 #### [facility] CLIA [id number] [address] [id number] [place] Urea nitrogen [Mass/Vol] 11 mg/dL Normal 7-21 [facility] Comment on above: Order Comment: Speci men Type: BLOOD SPECIMEN Ordering Facility: [facility] Address: [address] [address] Performed By: #### 2 4323-8, 3016-3 #### [facility] CLIA [id number] [address] [id number] [facility] Albumin [Mass/Vol] 4.3 g/dL 3.9 - 4.9 g/dL [facility] ALP [Catalytic activity/Vol] 71 U/L 34 - 123 U/L [facility] ALT With P-5'-P [Catalytic activity/Vol] 20 U/L 7 - 38 U/L [facility] Anion gap [Moles/Vol] 13 mmol/L 9 - 18 mmol/L [facility] AST With P-5'-P [Catalytic activity/Vol] 21 U/L 13 - 35 U/L [facility] Bilirubin [Mass/Vol] 0.3 mg/dL 0.2 - 1 .3 mg/dL [facility] Calcium [Mass/Vol] 8.9 mg/dL 8.5 - 10. 2 mg/dL [facility] Chloride [Moles/Vol] 106 mmol/L High 97 - 10 5 mmol/L [facility] CO2 [Moles/Vol] 20 mmol/L Low 22 - 30 mmol/L [facility] Creatinine [Mass/Vol] 0.67 mg/dL 0.58 - 0.96 mg/dL [facility] Estimated Glomerular Filtration Rate 124 mL/min/1.73m >=60 mL/min/1.73m [facility] Glucose [Mass/Vol] 95 mg/dL 74 - 99 mg/dL [facility] Potassium [Moles/Vol] 4.1 mmol/L 3.7 - 5.1 mmol/L [facility] Protein [Mass/Vol] 6.9 g/dL 6.3 - 8.0 g/dL [facility] Sodium [Moles/Vol] 139 mmol/L 136 - 144 mmol/L [facility] Urea nitrogen [Mass/Vol] 11 mg/dL 7 - 21 mg/d L [facility] Ferritin SerPl-ncon 2022 Ferritin [Mass/Vol] 46.7 ng/mL Normal 14.7-205.1 [facility] Comment on above: Order Comment: Speci men Type: BLOOD SPECIMENOrdering Facility: [facility] Address: [address] [place] [address] Performed By: #### 2 284-8, 2276-4, 30517-8, 9 ####[facility] [id number] [address] STATES OF [facility] Folate [facility] Folate [Mass/Vol] 11.0 ng/mL Normal >4.7 [facility] Comment on above: Order Comment: Speci men Type: BLOOD SPECIMENOrdering Facility: [facility] Address: [address] [place] [address] Performed By: #### 2 284-8, 2276-4, 72811-1, 9 ####[facility] [id number] [place] [address] [place] Iron and Iron binding capaci panelon 08-03-2022 Iron [Mass/Vol] 59 ug/dL Normal 41-186 [facility] Comment on above: Order Comment: Speci men Type: BLOOD SPECIMENOrdering Facility: [facility] Address: [address] [place] [address] Performed By: #### 2 284-8, 2276-4, 45206-0, 9 ####[facility] [id number] [place] [address] [place] Iron binding capacity [Mass/Vol] 470 ug/dL High 232-386 [facility] Comment on above: Order Comment: Maryam mustafa Type: BLOOD SPECIMENOrdering Facility: [facility] Address: [address] [place] [address] Performed By: #### 2 284-8, 2276-4, 18611-6, 9 ####[facility] [id number] [place] [address] [place] Iron saturation [Mass fraction] 12.6 % Low 15.0-57.0 [facility] Comment on above: Order Comment: Specyoav mustafa Type: BLOOD SPECIMENOrdering Facility: [facility] Address: [address] [place] [address] Performed By: #### 2 284-8, 2276-4, 99780-0, 2132-03 ####[facility] [id number] [address] [place] TSH BLDon 08-03-2022 TSH Qn 1.100 m[IU]/L 0.270 - 4.200 mIU/L [facility] TSH SerPl-aCncon 08-03-2022 TSH Qn 1.100 m[IU]/L Normal 0.270-4.200 [facility] Comment on above: Order Comment: Maryam mustafa Type: BLOOD SPECIMEN Ordering Facility: [facility] Address: [address] [place] [address] Result Comment: If t he patient is , TSH reference range varies by gestational period: First Trimester (weeks 9-12): 0.180-2.990 mIU/L Second Trimester: 0.110-3.980 mIU/L Third Trimester: 0.480-4.710 mIU/L Isaak Ayoub et al. A Practical Approach for the Verifications and Determination of Site- and Trimester-Specific Reference Intervals for Thyroid Function tests in . Thyroid, 2019:29:3:412-420. Will Guthrie et al. 2017 Guidelines of the [place] Thyroid Association for the Diagnosis and Management of Thyroid Disease during and the . Thyroid, 2017:27:3:315-389. Performed By: #### 2 4323-8, 1656-3 #### [facility] CLIA [id number] [address] [place] [address] [facility] [place] Vit B12 [facility] 023 Cobalamin (Vitamin B12) [Mass/Vol] 555 pg/mL Normal 232-1245 [facility] Comment on above: Order Comment: Speci men Type: BLOOD SPECIMENOrdering Facility: [facility] Address: [address] [place], [place] [address] [address] Performed By: #### 2 284-8, 2276-4, 34076-2, 2132-9 ####[facility] [id number] [address] [id number] [facility] CNOVon 02-18-2021 CNOV Office Visit (UCWSTR ) KEY ZELAYA ([id number]) 1995 F Date Time Provider Department 02/18/21 8:00 AM RIVKA LEHMAN [facility] During your visit today, we recorded the following information about you: Temperature Pulse Respiration Blood pressure 98.5 degrees 99/minute 20/minute 126/70 Weight 62.2 kg Rivka Lehman APRN.HAND ALTERATIONS TAILOR 02/18/2021 8:09 AM Signed Patient is an uncomfortable appearing 25-year-old female [...] to emergency room. Report was given to [place] emergency room via their policy. Patient ambulated out of the office today under her own power in no distress. Rivka Lehman APRN.JOANNE Referring Provider: SELF [200] Allergies As of Date: 02/18/2021 (Not on File) Date Reviewed: 02/18/2021 Reviewed by: Rivka Lehman APRN.JOANNE - Fully Assessed Reason for Visit: Cough [28] Cmt: cough, sore throat, congestion, wheezing x 2 days Primary Visit Diagnosis:Chest heaviness [R07.89] Other Visit Diagnoses:SOB (shortness of breath) [R06.02] Wheezing [R06.2] Problem List As Of Date: 02/18/2021 (None) Encounter Status:Closed by RIVKA LEHMAN on 02/18/21 Normal [facility] Vital Signs Date Time Vital Sign Value Performing Clinician Facility 01-08-2025 09:46-0400 Body height 167.64 cm Temi Rice LEARNING ENGINEER-C Work Phone: [facility] 01-08-2025 09:46-0400 Body mass index (BMI) [Ratio] 24.2 kg/m2 Temi Rice LEARNING ENGINEER-C Work Phone: [facility] 01-08-2025 09:46-0400 Body weight 68.03 kg Temi Rice LEARNING ENGINEER-C Work Phone: [facility] 01-08-2025 09:46-0400 Diastolic blood pressure 82 mm[Hg] Temi Rice LEARNING ENGINEER-C Work Phone: [facility] 01-08-2025 09:46-0400 Systolic blood pressure 125 mm[Hg] Temi Rice LEARNING ENGINEER-C Work Phone: [facility] 10-21-2023 12:55-0400 Body temperature 98.1 [degF] No Primary Care Physician [facility] 10-21-2023 12:55-0400 Diastolic blood pressure 81 mm[Hg] No Primary Care Physician [facility] 10-21-2023 12:55-0400 Heart rate 70 /min No Primary Care Physician [facility] 10-21-2023 12:55-0400 Respiratory rate 16 /min No Primary Care Physician [facility] 10-21-2023 12:55-0400 SaO2% (BldA) [Mass fraction] 98 % No Primary Care Physician [facility] 10-21-2023 12:55-0400 Systolic blood pressure 116 mm[Hg] No Primary Care Physician [facility] 10-20-2023 00:59-0400 Body height 167.64 cm No Primary Care Physician [facility] 10-20-2023 00:59-0400 Body mass index (BMI) [Ratio] 28.7 kg/m2 No Primary Care Physician [facility] 10-20-2023 00:59-0400 Body weight 80.73 kg No Primary Care Physician [facility] 10-15-2023 10:03-0400 Body mass index (BMI) [Ratio] 29 kg/m2 No Primary Care Physician [facility] 10-15-2023 10:03-0400 Body weight 81.64 kg No Primary Care Physician [facility] 10-11-2023 16:08-0400 Body mass index (BMI) [Ratio] 28.8 kg/m2 No Primary Care Physician [facility] 10-11-2023 16:08-0400 Body weight 80.9 kg No Primary Care Physician [facility] 10-11-2023 16:08-0400 Diastolic blood pressure 76 mm[Hg] No Primary Care Physician [facility] 10-11-2023 16:08-0400 Systolic blood pressure 129 mm[Hg] No Primary Care Physician [facility] 10-01-2023 13:49-0400 Body height 167.64 cm LEARNING ENGINEER-C Temi Rice NP Work Phone: [facility] 10-01-2023 13:49-0400 Body mass index (BMI) [Ratio] 28.1 kg/m2 LEARNING ENGINEER-C Temi Queden LEARNING ENGINEER Work Phone: [facility] 10-01-2023 13:49-0400 Body weight 79.03 kg LEARNING ENGINEER-C Temi Queden LEARNING ENGINEER Work Phone: [facility] 10-01-2023 13:49-0400 Diastolic blood pressure 82 mm[Hg] LEARNING ENGINEER-C Temi Queden LEARNING ENGINEER Work Phone: [facility] 10-01-2023 13:49-0400 Systolic blood pressure 124 mm[Hg] LEARNING ENGINEER-C Temi Queden LEARNING ENGINEER Work Phone: [facility] 09-27-2023 14:52-0400 Body mass index (BMI) [Ratio] 28.4 kg/m2 LEARNING ENGINEER-C Temi Queden LEARNING ENGINEER Work Phone: [facility] 09-27-2023 14:52-0400 Body weight 79.83 kg LEARNING ENGINEER-C Temi Queden LEARNING ENGINEER Work Phone: [facility] 09-25-2023 20:57-0400 Diastolic blood pressure 75 mm[Hg] LEARNING ENGINEER-C Temi Queden LEARNING ENGINEER Work Phone: [facility] 09-25-2023 20:57-0400 Heart rate 81 /min LEARNING ENGINEER-C Temi Queden LEARNING ENGINEER Work Phone: [facility] 09-25-2023 20:57-0400 Systolic blood pressure 117 mm[Hg] LEARNING ENGINEER-C Temi Queden LEARNING ENGINEER Work Phone: [facility] 09-25-2023 20:02-0400 Body height 167.64 cm LEARNING ENGINEER-C Temi Queden LEARNING ENGINEER Work Phone: [facility] 09-25-2023 20:02-0400 Body mass index (BMI) [Ratio] 28.4 kg/m2 LEARNING ENGINEER-C Temi Queden LEARNING ENGINEER Work Phone: [facility] 09-25-2023 20:02-0400 Body weight 80 kg LEARNING ENGINEER-C Temi Queden LEARNING ENGINEER Work Phone: [facility] 09-25-2023 19:55-0400 Body temperature 97.9 [degF] LEARNING ENGINEER-C Temi Queden LEARNING ENGINEER Work Phone: [facility] 09-25-2023 19:55-0400 Respiratory rate 16 /min LEARNING ENGINEER-C Temi Queden LEARNING ENGINEER Work Phone: [facility] 09-25-2023 19:55-0400 SaO2% (BldA) [Mass fraction] 98 % LEARNING ENGINEER-C Temi Queden LEARNING ENGINEER Work Phone: [facility] 09-13-2023 14:30-0500 Body mass index (BMI) [Ratio] 27.3 kg/m2 LEARNING ENGINEER-C Temi Queden LEARNING ENGINEER Work Phone: [facility] 09-13-2023 14:30-0500 Body weight 76.88 kg LEARNING ENGINEER-C Temi Queden LEARNING ENGINEER Work Phone: [facility] 09-13-2023 14:30-0500 Diastolic blood pressure 76 mm[Hg] LEARNING ENGINEER-C Temi Queden LEARNING ENGINEER Work Phone: [facility] 09-13-2023 14:30-0500 Systolic blood pressure 117 mm[Hg] LEARNING ENGINEER-C Temi Queden LEARNING ENGINEER Work Phone: [facility] 08-30-2023 14:03-0500 Body mass index (BMI) [Ratio] 27.7 kg/m2 LEARNING ENGINEER-C Temi Queden LEARNING ENGINEER Work Phone: [facility] 08-30-2023 14:03-0500 Body weight 78.01 kg LEARNING ENGINEER-C Temi Queden LEARNING ENGINEER Work Phone: [facility] 08-30-2023 14:03-0500 Diastolic blood pressure 72 mm[Hg] LEARNING ENGINEER-C Temi Queden LEARNING ENGINEER Work Phone: [facility] 08-30-2023 14:03-0500 Systolic blood pressure 122 mm[Hg] LEARNING ENGINEER-C Temi Queden LEARNING ENGINEER Work Phone: [facility] 08-16-2023 13:40-0500 Body mass index (BMI) [Ratio] 27.2 kg/m2 LEARNING ENGINEER-C Temi Queden LEARNING ENGINEER Work Phone: [facility] 08-16-2023 13:40-0500 Body weight 76.65 kg LEARNING ENGINEER-C Temi Queden LEARNING ENGINEER Work Phone: [facility] 08-02-2023 13:28-0500 Body height 167.64 cm LEARNING ENGINEER-C Temi Queden LEARNING ENGINEER Work Phone: [facility] 08-02-2023 13:25-0500 Body mass index (BMI) [Ratio] 27.1 kg/m2 LEARNING ENGINEER-C Temi Queden LEARNING ENGINEER Work Phone: [facility] 08-02-2023 13:25-0500 Body weight 76.2 kg LEARNING ENGINEER-C Temi Queden LEARNING ENGINEER Work Phone: [facility] 08-02-2023 13:25-0500 Diastolic blood pressure 72 mm[Hg] LEARNING ENGINEER-C Temi Queden LEARNING ENGINEER Work Phone: [facility] 08-02-2023 13:25-0500 Systolic blood pressure 118 mm[Hg] LEARNING ENGINEER-C Temi Queden LEARNING ENGINEER Work Phone: [facility] 07-02-2023 14:09-0500 Body mass index (BMI) [Ratio] 26.5 kg/m2 LEARNING ENGINEER-C Temi Queden LEARNING ENGINEER Work Phone: [facility] 07-02-2023 14:09-0500 Body weight 74.61 kg LEARNING ENGINEER-C Temi Queden LEARNING ENGINEER Work Phone: [facility] 07-02-2023 14:09-0500 Diastolic blood pressure 73 mm[Hg] LEARNING ENGINEER-C Temi Queden LEARNING ENGINEER Work Phone: [facility] 07-02-2023 14:09-0500 Systolic blood pressure 119 mm[Hg] LEARNING ENGINEER-C Temi Queden LEARNING ENGINEER Work Phone: [facility] 06-04-2023 14:55-0500 Body mass index (BMI) [Ratio] 25 kg/m2 LEARNING ENGINEER-C Temi Queden LEARNING ENGINEER Work Phone: [facility] 06-04-2023 14:55-0500 Body weight 70.42 kg LEARNING ENGINEER-C Temi Queden LEARNING ENGINEER Work Phone: [facility] 06-04-2023 14:55-0500 Diastolic blood pressure 74 mm[Hg] LEARNING ENGINEER-C Temi Queden LEARNING ENGINEER Work Phone: [facility] 06-04-2023 14:55-0500 Systolic blood pressure 127 mm[Hg] LEARNING ENGINEER-C Temi Queden LEARNING ENGINEER Work Phone: [facility] 05-07-2023 11:04-0400 Body mass index (BMI) [Ratio] 25 kg/m2 LEARNING ENGINEER-C Temi Queden LEARNING ENGINEER Work Phone: [facility] 05-07-2023 11:04-0400 Body weight 70.36 kg LEARNING ENGINEER-C Temi Queden LEARNING ENGINEER Work Phone: [facility] 05-07-2023 11:04-0400 Diastolic blood pressure 68 mm[Hg] LEARNING ENGINEER-C Temi Queden LEARNING ENGINEER Work Phone: [facility] 05-07-2023 11:04-0400 Systolic blood pressure 112 mm[Hg] LEARNING ENGINEER-C Temi Queden LEARNING ENGINEER Work Phone: [facility] 04-12-2023 10:39-0400 Body mass index (BMI) [Ratio] 24.3 kg/m2 LEARNING ENGINEER-C Temi Queden LEARNING ENGINEER Work Phone: [facility] 04-12-2023 10:39-0400 Body weight 68.54 kg LEARNING ENGINEER-C Temi Queden LEARNING ENGINEER Work Phone: [facility] 04-12-2023 10:39-0400 Diastolic blood pressure 70 mm[Hg] LEARNING ENGINEER-C Temi Queden LEARNING ENGINEER Work Phone: [facility] 04-12-2023 10:39-0400 Systolic blood pressure 117 mm[Hg] LEARNING ENGINEER-C Temi Queden LEARNING ENGINEER Work Phone: [facility] 03-25-2023 15:24-0400 Body height 167.64 cm LEARNING ENGINEER-C Temi Queden LEARNING ENGINEER Work Phone: [facility] 03-25-2023 15:24-0400 Body mass index (BMI) [Ratio] 24.5 kg/m2 LEARNING ENGINEER-C Temi Queden LEARNING ENGINEER Work Phone: [facility] 03-25-2023 15:24-0400 Body temperature 98.1 [degF] LEARNING ENGINEER-C Temi Queden LEARNING ENGINEER Work Phone: [facility] 03-25-2023 15:24-0400 Body weight 69.08 kg LEARNING ENGINEER-C Temi Queden LEARNING ENGINEER Work Phone: [facility] 03-25-2023 15:24-0400 Diastolic blood pressure 76 mm[Hg] LEARNING ENGINEER-C Temi Queden LEARNING ENGINEER Work Phone: [facility] 03-25-2023 15:24-0400 Heart rate 88 /min LEARNING ENGINEER-C Temi Queden LEARNING ENGINEER Work Phone: [facility] 03-25-2023 15:24-0400 Respiratory rate 18 /min LEARNING ENGINEER-C Temi Queden LEARNING ENGINEER Work Phone: [facility] 03-25-2023 15:24-0400 SaO2% (BldA) [Mass fraction] 100 % LEARNING ENGINEER-C Temi Queden LEARNING ENGINEER Work Phone: [facility] 03-25-2023 15:24-0400 Systolic blood pressure 121 mm[Hg] LEARNING ENGINEER-C Temi Queden LEARNING ENGINEER Work Phone: [facility] 03-14-2023 15:08-0400 Body height 167.64 cm LEARNING ENGINEER-C Temi Webbden LEARNING ENGINEER Work Phone: [facility] 03-14-2023 15:05-0400 Body mass index (BMI) [Ratio] 24.5 kg/m2 LEARNING ENGINEER-C Temi Queden LEARNING ENGINEER Work Phone: [facility] 03-14-2023 15:05-0400 Body weight 69.05 kg LEARNING ENGINEER-C Temi Queden LEARNING ENGINEER Work Phone: [facility] 03-14-2023 15:05-0400 Diastolic blood pressure 83 mm[Hg] LEARNING ENGINEER-C Temi Queden LEARNING ENGINEER Work Phone: [facility] 03-14-2023 15:05-0400 Systolic blood pressure 128 mm[Hg] LEARNING ENGINEER-C Temi Queden LEARNING ENGINEER Work Phone: [facility] 01-11-2023 08:18-0400 Body temperature 98.8 [degF] No Primary Care Physician [facility] 01-11-2023 08:18-0400 Diastolic blood pressure 59 mm[Hg] No Primary Care Physician [facility] 01-11-2023 08:18-0400 Heart rate 61 /min No Primary Care Physician [facility] 01-11-2023 08:18-0400 Respiratory rate 16 /min No Primary Care Physician [facility] 01-11-2023 08:18-0400 SaO2% (BldA) [Mass fraction] 98 % No Primary Care Physician [facility] 01-11-2023 08:18-0400 Systolic blood pressure 96 mm[Hg] No Primary Care Physician [facility] 01-11-2023 06:49-0400 Body height 167.64 cm No Primary Care Physician [facility] 01-11-2023 06:49-0400 Body mass index (BMI) [Ratio] 24.3 kg/m2 No Primary Care Physician [facility] 01-11-2023 06:49-0400 Body weight 68.49 kg No Primary Care Physician [facility] 09-08-2022 11:14-0500 Body height 167.6 cm Temi Queden LOADING SUPERVISOR.HAND ALTERATIONS TAILOR Work Phone: [facility] 09-08-2022 11:14-0500 Body temperature 97.39 [degF] Temi Queden LOADING SUPERVISOR.HAND ALTERATIONS TAILOR Work Phone: [facility] 09-08-2022 11:14-0500 Body weight 69.85 kg Temi Queden LOADING SUPERVISOR.HAND ALTERATIONS TAILOR Work Phone: [facility] 09-08-2022 11:14-0500 Diastolic blood pressure 62 mm[Hg] Temi Queden LOADING SUPERVISOR.HAND ALTERATIONS TAILOR Work Phone: [facility] 09-08-2022 11:14-0500 Heart rate 74 /min Temi Queden LOADING SUPERVISOR.HAND ALTERATIONS TAILOR Work Phone: [facility] 09-08-2022 11:14-0500 Respiratory rate 18 /min Temi Queden LOADING SUPERVISOR.HAND ALTERATIONS TAILOR Work Phone: [facility] 09-08-2022 11:14-0500 SaO2% (BldA) [Mass fraction] 100 % Temi Queden LOADING SUPERVISOR.HAND ALTERATIONS TAILOR Work Phone: [facility] 09-08-2022 11:14-0500 Systolic blood pressure 118 mm[Hg] Temi Queden LOADING SUPERVISOR.HAND ALTERATIONS TAILOR Work Phone: [facility] 08-03-2022 08:18-0500 Body height 167.6 cm Temi Queden LOADING SUPERVISOR.HAND ALTERATIONS TAILOR Work Phone: [facility] 08-03-2022 08:18-0500 Body temperature 97.7 [degF] Temi Queden LOADING SUPERVISOR.HAND ALTERATIONS TAILOR Work Phone: [facility] 08-03-2022 08:18-0500 Body weight 70.76 kg Temi Queden LOADING SUPERVISOR.HAND ALTERATIONS TAILOR Work Phone: [facility] 08-03-2022 08:18-0500 Diastolic blood pressure 70 mm[Hg] Temi Queden LOADING SUPERVISOR.HAND ALTERATIONS TAILOR Work Phone: [facility] 08-03-2022 08:18-0500 Heart rate 79 /min Temi Rice LOADING SUPERVISOR.HAND ALTERATIONS TAILOR Work Phone: [facility] 08-03-2022 08:18-0500 Respiratory rate 18 /min Temi Rice LOADING SUPERVISOR.HAND ALTERATIONS TAILOR Work Phone: [facility] 08-03-2022 08:18-0500 SaO2% (BldA) [Mass fraction] 97 % Temi Rice LOADING SUPERVISOR.HAND ALTERATIONS TAILOR Work Phone: [facility] 08-03-2022 08:18-0500 Systolic blood pressure 122 mm[Hg] Temi Quewiley LOADING SUPERVISOR.HAND ALTERATIONS TAILOR Work Phone: [facility] Encounters Encounter Date Encounter Type Care Provider Facility Start: 01-08-2025 End: 01-08-2025 ambulatory Ani Whitney Facility:[facility] Start: 01-08-2025 End: 01-08-2025 Patient encounter procedure Ani Whitney LEARNING ENGINEER-C -[facility] Work Phone: Start: 01-08-2025 End: 01-08-2025 Patient encounter status Ani Whitney LEARNING ENGINEER-C [facility] Start: 06-04-2024 End: 06-04-2024 ambulatory Temi Rice NP Facility:[facility] Start: 10-21-2023 Non-patient / Non-visit No Primary Care Physician [facility] Start: 10-20-2023 End: 10-21-2023 Evaluation and management of inpatient No Primary Care Physician [facility] Work Phone: Start: 10-15-2023 End: 10-15-2023 Patient encounter procedure No Primary Care Physician [facility] Work Phone: Start: 10-11-2023 End: 10-11-2023 Patient encounter procedure No Primary Care Physician [facility] Work Phone: Start: 10-01-2023 End: 10-01-2023 Patient encounter procedure LEARNING ENGINEER-C Temi Webbden LEARNING ENGINEER Work Phone: [facility] Work Phone: Start: 09-27-2023 End: 09-27-2023 ambulatory LEARNING ENGINEER-C Temi Queden LEARNING ENGINEER Work Phone: [facility] Work Phone: Start: 09-27-2023 End: 09-27-2023 Patient encounter procedure LEARNING ENGINEER-C Temi Webbden LEARNING ENGINEER Work Phone: [facility]-Laboratory, Specimen Work Phone: Start: 09-27-2023 End: 09-27-2023 Patient encounter procedure LEARNING ENGINEER-C Temi Webbden LEARNING ENGINEER Work Phone: [facility] Work Phone: Start: 09-25-2023 Non-patient / Non-visit LEARNING ENGINEER-C Temi Webbden LEARNING ENGINEER Work Phone: [facility] Start: 09-25-2023 End: 09-25-2023 ambulatory LEARNING ENGINEER-C Temi Webbden LEARNING ENGINEER Work Phone: [facility] Work Phone: Start: 09-25-2023 End: 09-25-2023 Patient encounter procedure LEARNING ENGINEER-C Temi Webbden LEARNING ENGINEER [facility] Work Phone: Start: 09-13-2023 End: 09-13-2023 Patient encounter procedure LEARNING ENGINEER-C Temi Queden LEARNING ENGINEER Work Phone: [facility] Work Phone: Start: 08-30-2023 End: 08-30-2023 Patient encounter procedure LEARNING ENGINEER-C Temi Queden LEARNING ENGINEER Work Phone: [facility] Work Phone: Start: 08-16-2023 End: 08-16-2023 Patient encounter procedure LEARNING ENGINEER-C Temi Webbden LEARNING ENGINEER Work Phone: [facility] Work Phone: Start: 08-02-2023 End: 08-02-2023 ambulatory LEARNING ENGINEER-C Temi Webbden LEARNING ENGINEER Work Phone: [facility] Work Phone: Start: 08-02-2023 End: 08-02-2023 Patient encounter procedure LEARNING ENGINEER-C Temi Traceyden LEARNING ENGINEER Work Phone: [facility] Work Phone: Start: 07-02-2023 End: 07-02-2023 Patient encounter procedure LEARNING ENGINEER-C Temi Webbden LEARNING ENGINEER Work Phone: [facility] Work Phone: Start: 07-02-2023 End: 07-02-2023 Patient encounter procedure LEARNING ENGINEER-C Temi Webbden LEARNING ENGINEER Work Phone: [facility] Work Phone: Start: 06-04-2023 End: 06-04-2023 Patient encounter procedure LEARNING ENGINEER-C Temi Webbden LEARNING ENGINEER Work Phone: [facility] Work Phone: Start: 05-25-2023 End: 05-25-2023 ambulatory MD [facility] Start: 05-07-2023 End: 05-07-2023 Patient encounter procedure LEARNING ENGINEER-C Temi Webbden LEARNING ENGINEER Work Phone: [facility] Work Phone: Start: 04-12-2023 End: 04-12-2023 Patient encounter procedure LEARNING ENGINEER-C Temi Webbden LEARNING ENGINEER Work Phone: [facility] Work Phone: Start: 03-28-2023 ambulatory Sandra Mattson MA [facility] Comment on above: ED outreach (Ed outr each/[place]/03/25/23/) Start: 03-25-2023 End: 03-25-2023 Emergency department patient visit LEARNING ENGINEER-C Temi Dwayne LEARNING ENGINEER Work Phone: [facility]-Emergency Department Work Phone: Start: 03-14-2023 End: 03-14-2023 ambulatory LEARNING ENGINEER-C Temi Traceyden LEARNING ENGINEER Work Phone: [facility] Work Phone: Start: 03-14-2023 End: 03-14-2023 Patient encounter procedure LEARNING ENGINEER-C Temi Traceyden LEARNING ENGINEER Work Phone: [facility]-Laboratory, Specimen Work Phone: Start: 03-14-2023 End: 03-14-2023 Colonoscopy normal LEARNING ENGINEER-C Teim Traceyden LEARNING ENGINEER Work Phone: [facility] Start: 03-14-2023 End: 03-14-2023 Patient encounter procedure LEARNING ENGINEER-C Temi Queden LEARNING ENGINEER Work Phone: [facility] Work Phone: Start: 02-28-2023 End: 02-28-2023 Patient encounter procedure No Primary Care Physician [facility]-Ultrasound, [facility] Work Phone: Start: 02-26-2023 End: 02-26-2023 ambulatory No Primary Care Physician [facility] Work Phone: Start: 02-26-2023 End: 02-26-2023 Patient encounter procedure No Primary Care Physician [facility]-Laboratory Work Phone: Start: 01-11-2023 Non-patient / Non-visit No Primary Care Physician [facility] Start: 01-11-2023 End: 01-11-2023 Admission to same day surgery center No Primary Care Physician [facility]-Endoscopy Work Phone: Start: 01-11-2023 End: 01-11-2023 ambulatory No Primary Care Physician [facility] Work Phone: Start: 11-15-2022 End: 11-15-2022 Patient encounter procedure No Primary Care Physician [facility]-Laboratory Work Phone: Start: 11-03-2022 End: 11-03-2022 ambulatory No Primary Care Physician [facility] Work Phone: Start: 11-03-2022 End: 11-03-2022 Patient encounter procedure No Primary Care Physician [facility]-Laboratory Start: 11-03-2022 End: 11-03-2022 Patient encounter procedure No Primary Care Physician [facility] Start: 09-08-2022 End: 09-08-2022 ambulatory TEMI WEBBDEN [facility] Start: 09-08-2022 End: 09-08-2022 Patient encounter procedure Temi Webbden LOADING SUPERVISOR.HAND ALTERATIONS TAILOR Work Phone: [facility] Comment on above: Blood in stool (Prim amarilis Dx); Iron deficiency; Abnormal stools; Incontinence of feces with fecal urgency; Menorrhagia with regular cycle; LLQ pain Start: 08-15-2022 Telephone encounter Temi Webbden LOADING SUPERVISOR.HAND ALTERATIONS TAILOR Work Phone: [facility] Comment on above: Results Start: 08-12-2022 Telephone encounter Temi Webbden LOADING SUPERVISOR.HAND ALTERATIONS TAILOR Work Phone: [facility] Comment on above: Results; Orders Start: 08-11-2022 End: 08-12-2022 ambulatory TEMI A TRACEYDEN Facility[facility] Start: 08-11-2022 Telephone encounter Temifuentes Webbden LOADING SUPERVISOR.HAND ALTERATIONS TAILOR Work Phone: [facility] Comment on above: Results Start: 08-11-2022 End: 08-11-2022 Subsequent hospital visit by physician [facility] Comment on above: LLQ pain [R10.32] Start: 08-08-2022 Telephone encounter Sandra Mattson NAVIN [facility] Comment on above: Patient Question Start: 08-03-2022 End: 08-04-2022 ambulatory TEMIEDI RICE Facility[facility] Start: 08-03-2022 End: 08-03-2022 ambulatory TEMI RICE [facility] Start: 08-03-2022 End: 08-03-2022 Patient encounter procedure Temi Rice LOADING SUPERVISOR.HAND ALTERATIONS TAILOR Work Phone: [facility] Comment on above: Blood in stool (Prim amarilis Dx); Abnormal stools; LLQ pain; Incontinence of feces with fecal urgency; Heartburn; Menorrhagia with regular cycle; Smoker; Screening for depression Procedures Date Procedure Procedure Detail Performing Clinician Start: 09-27-2023 Group B Streptococcu s Culture LEARNING ENGINEER-C Temi Rice LEARNING ENGINEER Work Phone: Start: 09-25-2023 Urine culture LEARNING ENGINEER-C Yin Rice LEARNING ENGINEER Work Phone: Start: 03-14-2023 Urine culture LEARNING ENGINEER-C Yin dill Dwayne LEARNING ENGINEER Work Phone: Start: 02-28-2023 Transvaginal obstetr ic ultrasonography No Primary Care Physician Start: 01-11-2023 Colonoscopy No Primary Care Physician Start: 11-15-2022 Clostridium difficil e detection No Primary Care Physician Start: 11-15-2022 Lactoferrin measurement No Primary Care Physician Start: 11-15-2022 Measurement of occul t blood in stool specimen using immunoassay No Primary Care Physician Start: 11-15-2022 Nucleic acid assay [facility] Start: 09-08-2022 Follow-up visit Follow Up TEMI RICE Plan of Treatment Date Care Activity Detail Author Start: 03-16-2025 PAP TESTING PAP TESTING [facility] Start: 10-21-2023 [facility] Start: 10-20-2023 Administration of medication [facility] Start: 10-20-2023 Application of ice c ollar, cap or bag [facility] Start: 10-20-2023 Catheterization of vein [facility] Start: 10-20-2023 Introduction of urin amarilis catheter [facility] Start: 10-20-2023 Measuring intake and output [facility] Start: 10-20-2023 Notification of physician [facility] Start: 10-20-2023 Procedure discontinued [facility] Start: 10-20-2023 Provision of activit y privileges [facility] Start: 10-20-2023 Vital signs measurements [facility] Start: 10-20-2023 End: 10-20-2023 [facility] Start: 10-20-2023 Documentation procedure [facility] Start: 10-20-2023 Admission procedure [facility] Start: 10-20-2023 Consultation [facility] Start: 09-25-2023 Nonstress test [facility] Start: 09-25-2023 Obstetric monitoring [facility] Start: 09-25-2023 Vital signs measurements [facility] Start: 09-25-2023 End: 09-25-2023 [facility] Start: 09-25-2023 Bacteria identified in Urine by Culture [facility] Start: 09-25-2023 Patient discharge [facility] Start: 09-08-2023 PNEUMOCOCCAL (1 - PCV) PNEUMOCOCCAL (1 - PCV) [facility] Comment on above: Postponed from 04/05 (Declined at this time) Start: 09-08-2023 Pneumococcal vaccination Pneum ococcal Vaccine (1 - PCV) [facility] Comment on above: Postponed from 04/05 (Declined at this time) Start: 08-03-2023 COVID-19 VACCINE (#1) COVID-19 VACCI NE (#1) [facility] Comment on above: Postponed from 10/03 (Declined at this time) Start: 08-03-2023 HPV VACCINE (1 - 2-d ose series) HPV VACCINE (1 - 2-dose series) [facility] Comment on above: Postponed from 04/05 (Declined at this time) Postponed from 04/05 (Declined at this time) Start: 08-03-2023 Urine microalbumin profile [facility] Comment on above: Postponed from 04/05 (Declined at this time) Start: 03-16-2023 Influenza vaccination Influenza Vacc ine (#1) [facility] Start: 01-12-2023 Influenza vaccination INFLUENZA (#1) [facility] Comment on above: Postponed from 03/16 (Declined at this time) Start: 01-11-2023 Colonoscopy w/biopsy single/multiple COLONOSCOPY AND BIOPSY [facility] Start: 01-11-2023 Egd transoral biopsy single/multiple EGD BIOPSY SINGLE/MULTIPLE [facility] Start: 01-11-2023 Patient discharge [facility] Start: 08-03-2022 End: 08-03-2023 Cobalamin (Vitamin B12) [Mass/volume] in Serum or Plasma [facility] Work Phone: Comment on above: Expected: 08/03/2022 , Expires: 08/03/2023 Start: 08-03-2022 End: 08-03-2023 Ferritin [Mass/volume] in Serum or Plasma [facility] Work Phone: Comment on above: Expected: 08/03/2022 , Expires: 08/03/2023 Start: 08-03-2022 End: 08-03-2023 Folate [Mass/volume] in Serum or Plasma [facility] Work Phone: Comment on above: Expected: 08/03/2022 , Expires: 08/03/2023 Start: 08-03-2022 End: 08-03-2023 Iron and Iron binding capacity panel - Serum or Plasma [facility] Work Phone: Comment on above: Expected: 08/03/2022 , Expires: 08/03/2023 Start: 08-03-2022 End: 10-03-2022 Urinalysis complete panel - Urine URINALYSIS WITH MICROSCOPIC, REFLEX CULTURE Lab Routine LLQ pain Expected: 08/03/2022, Expires: 10/03/2022 [facility] Work Phone: Comment on above: Expected: 08/03/2022 , Expires: 10/03/2022 Start: 2014 HEPATITIS C SCREENING HEPATITIS C [facility] Start: 2014 HIV SCREENING HIV SCREENING [facility] Start: 2010 PEDS TO ADULT TRANSI TION ANNUAL ASSESSMENT PEDS TO ADULT TRANSITION ANNUAL ASSESSMENT [facility] Start: 2008 PEDS TO ADULT TRANSI TION INITIAL DISCUSSION PEDS TO ADULT TRANSITION INITIAL DISCUSSION [facility] Start: 2002 PNEUMOCOCCAL (1 - PCV) PNEUMOCOCCAL (1 - PCV) [facility] CBC W Auto Different ial panel - Blood [facility] Chlamydia deoxyribon ucleic acid detection [facility] Clostridioides diffi cile DNA [Presence] in Unspecified specimen by BRIGHT with probe detection [facility] Elastase, pancreatic (el-1), fecal; quantitative [facility] Fat [Presence] in Stool [facility] Gastrointestinal pat hogens panel - Stool by BRIGHT with probe detection [facility] Hemoglobin.gastroint estina l.lower [Presence] in Stool by Immunoassay FECAL OCCULT BLOOD TEST Lab Routine Blood in stool Ordered: 08/03/2022 [facility] Work Phone: Comment on above: Ordered: 08/03/2022 Hepatitis B surface antigen measurement [facility] Hepatitis C antibody measurement [facility] HIV 1+2 Ab+HIV1 p24 Ag [Presence] in Serum or Plasma by Immunoassay [facility] Lactoferrin [Presenc e] in Stool by Immunoassay [facility] Liquid based cervica l cytology screening [facility] Measurement of occul t blood in stool specimen using immunoassay [facility] Patient Education [facility] Work Phone: Patient referral [facility] Work Phone: Protein measurement [facility] Rubella IgG measurement [facility] Source specific culture [facility] Treponema sp Ab [Pre sence] in Serum [facility] End: 09-02-2023 Us pelvic nonobstetric real-time image complete US FEMALE PELVIS TRANSABD COMPLETE Radiology Routine LLQ pain 1 Occurrences starting 08/03/2022 until 09/02/2023 [facility] Work Phone: Comment on above: 1 Occurrences starti ng 08/03/2022 until 09/02/2023 End: 08-11-2022 Us pelvic nonobstetric real-time image complete [facility] Work Phone: Comment on above: 1 Occurrences starti ng 08/11/2022 until 08/11/2022 End: 09-02-2023 Us transvaginal US FEMALE PELVIS TRANSVAG Radiology Routine LLQ pain Menorrhagia with regular cycle 1 Occurrences starting 08/03/2022 until 09/02/2023 [facility] Work Phone: Comment on above: 1 Occurrences starti ng 08/03/2022 until 09/02/2023 [facility] Immunizations Immunization Date Immunization Notes Care Provider Catherine aguila 08-02-2023 tetanus toxoid, redu kelvin diphtheria toxoid, and acellular pertussis vaccine, adsorbed LEARNING ENGINEER-C Temi Queden LEARNING ENGINEER Work Phone: [facility] 11-18-2014 meningococcal oligosaccharide (groups A, C, Y and W-135) diphtheria toxoid conjugate vaccine (MCV4O) Temi Queden LOADING SUPERVISOR.HAND ALTERATIONS TAILOR Work Phone: [facility] 11-18-2014 meningococcal polysaccharide (groups A, C, Y and W-135) diphtheria toxoid conjugate vaccine (MCV4P) Temi Queden LOADING SUPERVISOR.HAND ALTERATIONS TAILOR Work Phone: [facility] 04-09-2000 diphtheria, tetanus toxoids and acellular pertussis vaccine Temi Queden LOADING SUPERVISOR.HAND ALTERATIONS TAILOR Work Phone: [facility] 04-09-2000 measles, mumps and rubella virus vaccine Temi Queden LOADING SUPERVISOR.HAND ALTERATIONS TAILOR Work Phone: [facility] 04-09-2000 trivalent poliovirus vaccine, live, oral Temi Queden LOADING SUPERVISOR.HAND ALTERATIONS TAILOR Work Phone: [facility] 10-01-1997 trivalent poliovirus vaccine, live, oral Tmei Queden LOADING SUPERVISOR.HAND ALTERATIONS TAILOR Work Phone: [facility] 07-03-1997 diphtheria, tetanus toxoids and acellular pertussis vaccine Temi Queden LOADING SUPERVISOR.HAND ALTERATIONS TAILOR Work Phone: [facility] 07-03-1997 haemophilus influenz ae type b vaccine, HbOC conjugate Temi Queden LOADING SUPERVISOR.HAND ALTERATIONS TAILOR Work Phone: [facility] 07-03-1997 measles, mumps and rubella virus vaccine Temi Queden LOADING SUPERVISOR.HAND ALTERATIONS TAILOR Work Phone: [facility] 04-07-1997 varicella virus vaccine Brit tny Queden LOADING SUPERVISOR.HAND ALTERATIONS TAILOR Work Phone: [facility] 01-19-1997 hepatitis B vaccine, pediatric or pediatric/adolescent dosage Temi Queden LOADING SUPERVISOR.HAND ALTERATIONS TAILOR Work Phone: [facility] 1996 diphtheria, tetanus toxoids and acellular pertussis vaccine Temi Queden LOADING SUPERVISOR.HAND ALTERATIONS TAILOR Work Phone: [facility] 1996 haemophilus influenz ae type b vaccine, HbOC conjugate Temi Queden LOADING SUPERVISOR.HAND ALTERATIONS TAILOR Work Phone: [facility] 1996 diphtheria, tetanus toxoids and acellular pertussis vaccine Temi Queden LOADING SUPERVISOR.HAND ALTERATIONS TAILOR Work Phone: [facility] 1996 haemophilus influenz ae type b vaccine, HbOC conjugate Temi Queden LOADING SUPERVISOR.HAND ALTERATIONS TAILOR Work Phone: [facility] 1996 trivalent poliovirus vaccine, live, oral Temi Queden LOADING SUPERVISOR.HAND ALTERATIONS TAILOR Work Phone: [facility] 1996 diphtheria, tetanus toxoids and acellular pertussis vaccine Temi Queden LOADING SUPERVISOR.HAND ALTERATIONS TAILOR Work Phone: [facility] 1996 haemophilus influenz ae type b vaccine, HbOC conjugate Temi Queden LOADING SUPERVISOR.HAND ALTERATIONS TAILOR Work Phone: [facility] 1996 hepatitis B vaccine, pediatric or pediatric/adolescent dosage Temi Queden LOADING SUPERVISOR.HAND ALTERATIONS TAILOR Work Phone: [facility] 1996 trivalent poliovirus vaccine, live, oral Temi Rice LOADING SUPERVISOR.HAND ALTERATIONS TAILOR Work Phone: [facility] 1996 hepatitis B vaccine, pediatric or pediatric/adolescent dosage Temi Rice LOADING SUPERVISOR.HAND ALTERATIONS TAILOR Work Phone: [facility] Payers Date Payer Category Payer Self-pay [id number] 2019 Unknown [id number] 2019 Unknown [id number] 2016 Unknown [employer] [id number] 1996 Unknown [id number] Unknown [id number] Unknown [id number] Social History Date Type Detail Facility Start: 08-03-2022 End: 11-26-2023 Tobacco smoking status WAIS Smokes tobacco daily [facility] History of tobacco use Cigarette Smoker [facility] Start: 08-03-2022 End: 09-08-2022 Cigarettes smoked current (pack per day) - Reported 0.5 [facility] Work Phone: Start: 08-03-2022 End: 09-08-2022 Tobacco use and exposure Smokeless tobacco non-user [facility] Start: 08-03-2022 End: 09-08-2022 Alcohol intake Current drinker of alcohol (finding) [facility] Start: 1995 Sex Assigned At Not on file C [facility] Start: 09-08-2022 Alcohol Comment Once a week [facility] Start: 11-03-2022 End: 10-20-2023 Tobacco smoking status NHIS Unknown if ever smoked [facility] Start: 09-16-2020 Cigarettes [facility] Start: 1995 Sex Assigned At Female [facility] Start: 08-03-2022 End: 09-08-2022 Tobacco use panel [facility] Work Phone: Adult Depression Screening Assessment 1 [facility] Work Phone: NEGATED: Highlighted row [facility] Goals Date Patient Goal Desired Activity /State Mental Status Date Assessment Result Facility 01-11-2023 Cognitive function Voice/Name [facility] Work Phone: Clinical Notes 02-18-2021 to 10-21-2023 Note Date & Type Note Facility 10-21-2023 Progress note Note Date/Time October 21, 2023 6:39 am [facility] Medical Records Department [address] [place] [address] Progress Note - OBGYN 10/21/23 0639 MR#: [id number] Acct: [id number] Name: KEY ZELAYA Rep #:[id number] : 1995 28 From: Daphnie kirkland MD PCP: PIO Landeros Status:ADM I N Location: [place] [address]-1 Subjective Subjective Patient doing well without complaints. Tolerating PO. Ambulating and voiding without difficulty. feeding well. Denies chest pain, shortness of breath,calf pain/swelling, fevers, chills, lightheadedness. Objective Data Objective Data Vital Signs: Vital Signs Temp Pulse Resp BP Pulse Ox O2 Del Method 97.9 F 54 L 16 123/71 H 97 Room Air 10/20/23 20:26 10/21/23 04:43 10/21/23 04:43 10/21/23 04:43 10/20/23 14:27 10/21/23 04:43 Oxygen Delivery Method Room Air Weight: 178 lb Body Mass Index (BMI) 28.7 Intake & Output: Intake and Output for Last 24 Hours 10/19/23 10/20/23 10/21/23 23:59 23:59 23:59 Intake Total 418.83 / 418.83 Output Total 800 / 800 Balance -381.17 / -381.17 Lab / Micro Data 10/20/23 01:45 ROS Constitutional Constitutional: Reports systems reviewed and no addt'l complaints, except as documented Cardiovascular Cardiovascular: Reports systems reviewed and no addt'l complaints, except as documented Respiratory/Chest Respiratory/Chest: Reports systems reviewed and no addt'l complaints, except as documented Gastrointestinal Gastrointestinal: Reports systems reviewed and no addt'l complaints, except as documented Physical Exam Const alert, oriented x3 and no apparent distress HEENT Head and Scalp: atraumatic Resp normal respiratory effort GI soft to palpation and non-tender Bimanual Exam - Vag & Uterus: uterus non-tender Uterus Palpation: uterus fundus firm (below Umbilicus) Assessment & Plan (1) Vaginal delivery: COMMENT: SM 40 IAL girl shorty PLAN: Plan s/p PPD # 1 1. routine post delivery care 2. breast feeding- support given 3. rh positive 4. rubella immune 10/21/23 0639 <Electronically signed by Daphnie Gaspar MD> Cosigner Signature (if applicable): CC: ~ Signed [facility] Work Phone: 1(379) 460-523804-06-2024 Discharge summary Author Daphnie Gaspar [facility] October 20, 2023 1:09pm Note Date/Time October 20, 2023 1:09 pm [facility] Medical Records Department [address] [place] [address] Instructions for Home/Discharge Instructions 10/20/23 1309 MR#: [id number] Acct: [id number] Name: KEY ZELAYA Rep #:[id number] : 1995 28 From: Daphnie kirkland MD PCP: PIO Landeros Status:ADM I N Discharge Instructions Diet Discharge Diet: No restrictions Activity Discharge Activity: Return to Normal Activity, May Not Drive (while taking narcotic pain medications.) and May Shower May resume sexual activity in: 4-6 weeks Dressing / Incision Call your doctor if your incision/area has: Continuous Slow Oozing, Sudden Increased Bleeding, Increased Pain/ Swelling, Increased Redness and Foul Smelling Discharge Follow Up Care Please Follow Up With: Daphnie Gaspar MD When: Call [phone] to make an appointment with your doctor in 6 weeks. If you had elevated blood pressure or 4th degree laceration, you will need to be seen in 2 weeks. Test Results: Test results from this visit will be discussed in further detail at your follow- up appointment, if applicable. Discharge Plan Admission Admit Date/Time: 10/20/23 01:30 Attending Provider: Daphnie Gaspar Primary Care Provider: Temi Rice NP Discharge Orders/Prescriptions Prescriptions: No Action One A Day Women's DHA 28 mg iron- 800 mcg combo pack PO famotidine [Pepcid] 20 mg tablet 20 mg PO DAILY Qty: 30 6RF Referrals / Follow Up: Temi Rice NP, LEARNING ENGINEER-C [Primary Care Provider] - Disposition Disposition (needs filled in before D/C Order can be placed): Home, Self Care 10/20/23 1309<Electronically signed by Daphnie Gaspar MD>Daphnie Gaspar MD CC: LEARNING ENGINEER-C Temi Rice ~ Signed [facility] Work Phone: 1(372) 302-643604-06-[address] [facility] 10-20-2023 History and physical note Author Daphnie Gaspar [facility] October 20, 2023 1:31am Note Date/Time October 20, 2023 1:31 am [facility] Medical Records Department [address] [place] [address] H&P Exam - GRAPHIC ARTIST 10/20/23 0129 MR#: [id number] Acct: [id number] Name: KEY ZELAYA Rep #:[id number] : 1995 28 From: Daphnie kirkland MD PCP: PIO Landeros Status:ADM I N Location: [facility]-9 HPI - General HPI Narrative KEY ZELAYA, is a 28 F who presents with regular ctx 2 cm now was 1 in office, upon admission had a questionable late and variable decel. Maternal Data Information SELINA Calculator Estimated Delivery Date Method Current WG Current Estimate 10/22/23 Ultrasound #1 39w 5d Other Estimates 10/22/23 Manual 39w 5d PFSH PFS Medical History Abnormal stools Alcohol use Chronic cough Easy bruising GERD (gastroesophageal reflux disease) Incontinence of feces LLQ pain Low iron Menorrhagia Migraine headache Normal colonoscopy Seasonal allergies Smoker Wears glasses Home Medications vits 75-iron 28 mg-folic acid 800 mcg-omega-3 oral combo pack (One A Day Women's DHA) pkg PO 05/07/23 [History Last Taken 09/25/23] famotidine 20 mg tablet (Pepcid) 20 mg PO DAILY #30 tabs 08/02/23 [Rx Last Taken Unknown] Allergy/AdvReac Type Severity Reaction Status Date / Time No Known Allergies Allergy Verified 10/20/23 00:50 Family History Mother TIA (transient ischemic attack) Heart disease Diabetes Father COPD (chronic obstructive pulmonary disease) Grandfather Heart disease Grandmother Acute Crohn's disease Diabetes Grandfather Cancer penile, prostate and bone cancer Aunt Breast cancer Grandmother Breast cancer Acute depression Surgical History History of wisdom tooth extraction Social History adopted: No household members: spouse housing: house current occupational status: employed current occupation: [employer] current occupational exposures/hazards: Yes pets and animals: Yes leisure activities: art, hunting and fishing history of recent travel: No sexually active: Yes Smoking Status: Current every day smoker tobacco type: cigarettes Tobacco: How many years used: 10 second hand exposure: Yes quit status: considering quitting alcohol intake: former details: haven't drank since finding out substance use type: does not use caffeine: Yes eating out: 1-3 times/week what type of physical activity do you participate in: none seatbelt use: always do you feel safe at home: Yes History 1 Elective abortions Hx Para 0 Spontaneous abortions Hx # Term Pregnancies Ectopic pregnancies Hx # Pregnancies Multiple births # of living children Visit Details Expected Delivery Route/Plan Labor Preferences- CB/BF classes: encouraged labor support person: [] labor intervention preferences: [] pain management options preferred: natural, wants to try nitrous oxide. cut cord/dad catch: [] : [] PP control planned: [] discussed possible routes of delivery and associated risks: [] special requests: [] Plans Covid status: [] Flu vaccine: declined Tdap vaccine: given Rhogam: NA LARC form signed: declined movement and labor precautions reviewed. Problem list reviewed and updated with the most current plan of care details and appropriate orders placed. Relevant counseling for the gestational age provided. Continue routine care and follow up unless otherwise noted in visit notes/problem list details OB Flowsheet Initial Weight: 152 lb Date -?-?-?-?-?-?-?-?-?-?-?-?- EGA Weight BP Urine Prot -?-?-?-?-?-?-?-?-?-?-?-?- Glucose FHR FuHt Pres Dilation -?-?-?-?-?-?-?-?-?-?-?-?- Effaced St Visit Note 03/14/23 -?-?-?-?-?-?-?-?-?-?-?-?- 8w 2d 152 lb 4 oz (+4 oz) 128/83 -?-?-?-?-?-?-?-?-?-?-?-?- 157 -?-?-?-?-?-?-?--?-?-?-?-?- LC-early trimest er ultrasound SELINA 10/24/2023 LC- CRL con with LMP on 1st trim ultrasound. SELINA 10/22/2023. family hx of drug abuse. will obtain urine drug screening today. accepts nipt, declines carrier screening. 04/12/23 -?-?-?-?-?-?-?-?-?-?-?-?- 12w 3d 151 lb 2 oz (-14 oz) 117/70 Negative -?-?-?-?-?-?-?-?-?-?-?-?- Negative 160 -?-?-?-?-?-?-?-?-?-?-?-?- KW-no cramping. some spotting over the last 2 days. FHT visualized on handheld US. feeling good-very excited and many questions answered today. 05/07/23 -?-?-?-?-?-?-?-?-?-?-?-?- 16w 0d 155 lb 2 oz (+3 lb 2 oz) 112/68 Negative -?-?-?-?-?-?-?-?-?-?-?-?- Negative 146 0 -?-?-?-?-?-?-?-?-?-?-?-?- MH-had light spo tting after intercourse X 2 days but none today. Cervix closed, normal vag discharge. Sched MFM anatomy US at 18 wk. Reviewed bleeding precautions 06/04/23 -?-?-?-?-?-?-?-?-?-?-?-?- 20w 0d 155 lb 4 oz (+3 lb 4 oz) 127/74 -?-?-?-?-?-?-?-?-?-?-?-?- 142 -?-?-?-?-?-?-?-?-?-?-?-?- LC- no vb/crampi ng. +flutters. normal anatomy scan. 07/02/23 -?-?-?-?-?-?-?-?-?-?-?-?- 24w 0d 164 lb 8 oz (+12 lb 8 oz) 119/73 Negative -?-?-?-?-?-?-?-?-?-?-?-?- Negative 150 -?-?-?-?-?-?-?-?-?-?-?-?- JV- no lof, vagi nal bleeding, or cramping. is feeling movement infrequently. 08/02/23 -?-?-?-?-?-?-?-?-?-?-?-?- 28w 3d 168 lb (+16 lb) 118/72 Negative -?-?-?--?-?-?-?-?-?-?-?-?- Negative 145 29 -?-?-?-?-?-?-?-?-?-?-?-?- SM- no vb lof go od fm no regular ctx start pepcid for reflux 08/16/23 -?-?-?-?-?-?-?-?-?-?-?-?- 30w 3d 169 lb (+17 lb) Negative -?-?-?-?-?-?-?-?-?-?-?-?- Negative 158 31 -?-?-?-?-?-?-?-?-?-?-?-?- Kw- no vb/lof/ct x. good fm. LARC. tdap last visit. Pepcid helping with sx. 08/30/23 -?-?-?-?-?-?-?-?-?-?-?-?- 32w 3d 172 lb (+20 lb) 122/72 Negative -?-?-?-?-?-?-?-?-?-?-?-?- Negative 140 32 -?-?-?-?-?-?-?-?-?-?-?-?- SM- no vb lof go od fm no regular ctx 09/13/23 -?-?-?-?-?-?-?-?-?-?-?-?- 34w 3d 169 lb 8 oz (+17 lb 8 oz) 117/76 -?-?-?-?-?-?-?-?-?-?-?-?- 140 34 -?-?-?-?-?-?-?-?-?-?-?-?- SM- no vb lof go od fm n oregular ctx discussed weight gain 09/27/23 -?-?-?-?-?-?-?-?-?-?-?-?- 36w 3d 176 lb (+24 lb) Negative -?-?-?-?-?-?-?-?-?-?-?-?- Negative 166 36 Cephalic 0 -?-?-?-?-?-?-?-?-?-?-?-?- -2 KW- no v b/lof/reg ctx. good fm. GBS today. 10/01/23 -?-?-?-?-?-?-?-?-?-?-?-?- 37w 0d 174 lb 4 oz (+22 lb 4 oz) 124/82 Negative -?-?-?-?-?-?-?-?-?-?-?-?- Negative 146 37 0 -?-?-?-?-?-?-?-?-?-?-?-?- LC- no vb/ctx/lo f good fm. GBSneg. 10/11/23 -?-?-?-?-?-?-?-?-?-?-?-?- 38w 3d 178 lb 6 oz (+26 lb 6 oz) 129/76 Negative -?-?-?-?-?-?-?-?-?-?-?-?- Negative 153 38 Cephalic 0 .5 -?-?-?-?-?-?-?-?-?-?-?-?- 20 -2 MH-No VB,L OF or reg CTX. Good Fm. Denies concerns 10/15/23 -?-?-?-?-?-?-?-?-?-?-?-?- 39w 0d 180 lb (+28 lb) Negative -?-?-?-?-?-?-?-?-?-?-?-?- Negative 145 38 Cephalic 1 .5 -?-?-?-?-?-?-?-?-?-?-?-?- 50 -2 JV- no lof , vaginal bleeding, or dec fm. membranes swept today. labor precautions discussed NST FHR Rate Baby A Baseline: 140 Variability:: Moderate Accelerations:: 15 x 15 Decelerations:: Early and Late NST Reactive:: Yes FHR Category:: Category II (overall reassuring) Uterine Activity:: q3-5 ROS Constitutional Constitutional: Reports systems reviewed and no addt'l complaints, except as documented ENT HEENT: Reports systems reviewed and no addt'l complaints, except as documented Cardiovascular Cardiovascular: Reports systems reviewed and no addt'l complaints, except as documented Respiratory/Chest Respiratory/Chest: Reports systems reviewed and no addt'l complaints, except as documented Gastrointestinal Gastrointestinal: Reports systems reviewed and no addt'l complaints, except as documented and nausea; Denies abdominal pain Genitourinary Genitourinary: Reports systems reviewed and no addt'l complaints, except as documented, contractions Details: present and frequency (regular ) and movement Details: present Musculoskeletal Musculoskeletal: Reports systems reviewed and no addt'l complaints, except as documented Integumentary Integumentary: Reports as per HPI Neurologic Neurologic: Reports systems reviewed and no addt'l complaints, except as documented Endocrine Endocrinology: Reports systems reviewed and no addt'l complaints, except as documented Vital Signs Vital Signs Vital Signs: 10/20/23 00:55 10/20/23 00:55 10/20/23 00:55 Temperature Temperature Source Pulse Rate 79 Respiratory Rate Blood Pressure 121/80 H BP Systolic 121 BP Diastolic 80 Pulse Ox 98 10/20/23 00:55 10/20/23 00:54 10/20/23 00:54 Temperature Temperature Source Temporal Pulse Rate 84 Respiratory Rate 16 Blood Pressure BP Systolic BP Diastolic Pulse Ox 10/20/23 00:54 Temperature 97.8 F Temperature Source Pulse Rate Respiratory Rate Blood Pressure BP Systolic BP Diastolic Pulse Ox Weight Weight: 178 lb Body Mass Index (BMI) 28.7 Physical Exam Const alert, oriented x3 and healthy appearing Constitutional Narrative: uncomfortable with contractions HEENT normocephalic and moist oral mucous membranes Head and Scalp: atraumatic Neck full ROM, no lymphadenopathy, supple and thyroid normal General: trachea midline Thyroid: thyroid normal Lymph Lymphatic: no lymphadenopathy noted Chest inspection of chest normal Resp normal respiratory effort Cardio regular rate GI normal to inspection, nondistended, normoactive bowel sounds, soft to palpation and non-tender Inspection: gravid external exam normal Bimanual Exam - Vag & Uterus: uterus non-tender Manual OB Exam: estimated gestational size appropriate, presentation cephalic, dilated, effaced and station Extremity normal to inspection General Extremity: Negative for edema Skin no rashes or lesions noted Neuro deep tendon reflexes 2+ bilaterally Motor Exam: strength 5/5 throughout and clonus absent Psych mental status grossly normal Labs Labs Labs: Blood Type O POSITIVE Antibody Screen NEGATIVE Hct 34.6 % (37-47) L Hgb 11.2 g/dL (12.0-15.0) L Obstetrics Ultrasound Syphilis Total Ab Non-reactive Rubella IgG Antibody Reactive (Nonreactive) Hep Bs Antigen Non-Reactive (Nonreactive) Hepatitis C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
[2025-01-11 14:07] LABS: Chlamydia By Nucleic Acid AMP Negative (Negative); Gonococcus By Nucleic Acid AMP Negative (Negative)
[2025-01-12 07:31] LABS: HPV Reflexed? NOT INDICATED
== END | disposition home or self-care (01) ==
LOC: LABSPEC 11:14
PROVIDERS: PCP Nurse Practitioner Family; Referring Provider Nurse Practitioner Family; Visit Provider Nurse Practitioner Family
DX: Z20.2 Contact with and (suspected) exposure to infections with a predominantly sexual mode of transmission (principal); Z12.4 Encounter for screening for malignant neoplasm of cervix; N93.0 Postcoital and contact bleeding
CPT/HCPCS: 87070; 87205; 87491; 87591; 88175; G0145